=== PATIENT | female | born 1955 | race Caucasian/White ===

== ENCOUNTER → 2016-05-04 | Outpatient (CLI) | payer OTHER ==
[~2016-05-04] MED LIST: /ESCI10TA; /ONDA4TA; AMBI5TAB; LIPI20TA; MULTIVIT; PERC5TAB8; PERC7.5T8; VIT D; [UNRECOGNIZED DRUG - OTHER]
[2016-05-04 17:44] LABS: BASO % 0.4 % (0.0-1.0); EOS # 0.1 K/mm3 (0.0-0.50); EOS % 1.8 % (0.0-3.0); LARGE UNSTAINED CELL # 0.1 K/mm3 (0.0-0.4); LARGE UNSTAINED CELL % 2.7 % (0.0-4.0); LYMPH # 1.7 K/mm3 (1.5-4.5); LYMPH % 34.9 % (24.0-44.0); MEAN CORPUSCULAR HEMOGLOBIN 32.2 pg (27.0-33.0); MEAN CORPUSCULAR HGB CONC 32.5 g/dl (32.0-36.5); MEAN CORPUSCULAR VOLUME 99.3 fl (80.0-96.0); MONO # 0.3 K/mm3 (0.0-0.8); MONO % 6.1 % (0.0-5.0); NEUTROPHILS # 2.7 K/mm3 (1.8-7.7); NEUTROPHILS % 54.1 % (36.0-66.0); PLATELET COUNT, AUTOMATED 299 k/mm3 (150-450)
[2016-05-04 17:56] LABS: ALBUMIN 3.8 GM/DL (3.2-5.2); ALBUMIN/GLOBULIN RATIO 1.15 (1.00-1.93); BILIRUBIN,TOTAL 0.6 MG/DL (0.2-1.0); CALCIUM LEVEL 9.1 MG/DL (8.8-10.2); CREATININE FOR GFR 1.11 MG/DL (0.55-1.02); GLOMERULAR FILTRATION RATE 53.4 (>45); POTASSIUM SERUM 4.4 MEQ/L (3.5-5.1); TOTAL PROTEIN 7.1 GM/DL (6.4-8.2)
[2016-05-04 18:06] LABS: CARCINOEMBRYONIC ANTIGEN 1.6 NG/ML (<2.5)
== END ==
LOC: M WUC 13:56
PROVIDERS: ATTEND Emergency Medicine
DX: C18.9 Malignant neoplasm of colon, unspecified (principal); E78.2 Mixed hyperlipidemia; R73.01 Impaired fasting glucose; R19.7 Diarrhea, unspecified

== ENCOUNTER → 2016-10-10 | Outpatient (REF) | payer OTHER ==
[~2016-10-10] MED LIST changes: +AMBI10TA PO; +LEXA1TAB PO; +LOMO2.5T PO; +LOVE1INJ2 SC; +PERC5TAB12 PO; +TEMA30CA PO; +VALI5TAB PO
== END ==
LOC: M LAB REF 17:06
PROVIDERS: ATTEND Internal Medicine Gastroenterology
DX: R19.7 Diarrhea, unspecified (principal)

== ENCOUNTER → 2016-10-29 | Outpatient (CLI) | payer OTHER ==
[~2016-10-29] VITALS: Ht 157.5 cm; Wt 49.4 kg
[~2016-10-29] MED LIST changes: +LIDOCAINE 2% INJ 100 MG/5 ML SDV (FOR ANES.) As Ordered ONE; +NS 1,000 ML IV ONE; +PHENYLephrine HCL 500 MCG/5 ML (100MCG/ML) SYRINGE (J2370) As Ordered ONE; +PROPOFOL 200 MG/20 ML VIAL As Ordered ONE
--- NOTE | 2016-10-29 12:32 | ROOR ---
Patient Name: Indira Champion Procedure Date: 10/29/2016 12:07 PM Date of : 1955 Age: 60 Room: [facility] Gender: Female Note Status: Finalized Procedure: Total Colonoscopy to Cecum + Ileoscopy + Bx. Indications: Clinically significant diarrhea of unexplained origin Providers: Dariel Katz MD Referring MD: FLORENTINO AGUILAR MD Requesting Provider: Medicines: Monitored Anesthesia Care Complications: No immediate complications. Procedure: Pre-Anesthesia Assessment: - The heart rate, respiratory rate, oxygen saturations, blood pressure, adequacy of pulmonary ventilation, and response to care were monitored throughout the procedure. The Colonoscope was introduced through the anus and advanced to the terminal ileum, with identification of the appendiceal orifice and IC valve. The colonoscopy was performed without difficulty. The patient tolerated the procedure well. The quality of the bowel preparation was excellent. Findings: The perianal and digital rectal examinations were normal. Non-bleeding internal hemorrhoids were found during retroflexion. The hemorrhoids were small and Grade I (internal hemorrhoids that do not prolapse). No other significant abnormalities were identified in a careful examination of the remainder of the colon. The terminal ileum appeared normal. Biopsies for histology were taken with a cold forceps from the ascending colon, transverse colon and descending colon for evaluation of microscopic colitis. The exam was otherwise without abnormality on direct and retroflexion views. Impression: - Non-bleeding internal hemorrhoids. - The examined portion of the ileum was normal. - The examination was otherwise normal on direct and retroflexion views. - Biopsies were taken with a cold forceps from the ascending colon, transverse colon and descending colon for evaluation of microscopic colitis. - The exam was otherwise normal to the cecum. Recommendation: - Patient has a contact number available for emergencies. The signs and symptoms of potential delayed complications were discussed with the patient. Return to normal activities tomorrow. Written discharge instructions were provided to the patient. - High fiber diet. - Continue present medications. - Await pathology results. - Telephone GI clinic for pathology results in 1 week. - Repeat colonoscopy in 10 years for screening purposes. - Return to referring physician. - The findings and recommendations were discussed with the patient's family. Dariel Katz MD Dariel Katz MD 10/29/2016 12:32:21 PM This report has been signed electronically. Number of Addenda: 0 Note Initiated On: 10/29/2016 12:07 PM Estimated Blood Loss: Estimated blood loss: none.
[2016-10-29 12:45] VITALS: BP 144/81
== END | disposition home or self-care (01) ==
LOC: M OPP 11:29
PROVIDERS: ATTEND Internal Medicine Gastroenterology
DX: R19.7 Diarrhea, unspecified (principal); K64.0 First degree hemorrhoids; Z85.038 Personal history of other malignant neoplasm of large intestine; K58.9 Irritable bowel syndrome, unspecified; R12 Heartburn; F41.9 Anxiety disorder, unspecified; F32.9 Major depressive disorder, single episode, unspecified; Z78.0 Asymptomatic menopausal state; R06.83 Snoring; Z92.21 Personal history of antineoplastic chemotherapy; F12.20 Cannabis dependence, uncomplicated; F17.210 Nicotine dependence, cigarettes, uncomplicated; Z79.899 Other long term (current) drug therapy
CPT/HCPCS: 45380; 88305; J2370

== ENCOUNTER → 2016-11-30 | Outpatient (REF) | payer OTHER ==
[~2016-11-30] MED LIST changes: -LIDOCAINE 2% INJ 100 MG/5 ML SDV (FOR ANES.) As Ordered ONE; -NS 1,000 ML IV ONE; -PHENYLephrine HCL 500 MCG/5 ML (100MCG/ML) SYRINGE (J2370) As Ordered ONE; -PROPOFOL 200 MG/20 ML VIAL As Ordered ONE
== END ==
LOC: M LAB REF 14:38
PROVIDERS: ATTEND Emergency Medicine
DX: Z01.419 Encounter for gynecological examination (general) (routine) without abnormal findings (principal); Z11.51 Encounter for screening for human papillomavirus (HPV)

== ENCOUNTER → 2016-11-30 | Outpatient (REF) | payer OTHER ==
[2016-11-30 14:05] LABS: BASO % 0.2 % (0.0-1.0); EOS % 0.2 % (0.0-3.0); LARGE UNSTAINED CELL # 0.1 K/mm3 (0.0-0.4); LARGE UNSTAINED CELL % 0.8 % (0.0-4.0); LYMPH # 1.4 K/mm3 (1.5-4.5); LYMPH % 11.4 % (24.0-44.0); MEAN CORPUSCULAR HEMOGLOBIN 33.9 pg (27.0-33.0); MEAN CORPUSCULAR HGB CONC 34.3 g/dl (32.0-36.5); MEAN CORPUSCULAR VOLUME 98.6 fl (80.0-96.0); MONO # 0.5 K/mm3 (0.0-0.8); MONO % 4.5 % (0.0-5.0); NEUTROPHILS # 9.6 K/mm3 (1.8-7.7); PLATELET COUNT, AUTOMATED 359 k/mm3 (150-450); RED CELL DISTRIBUTION WIDTH 13.8 % (11.5-14.5); WHITE BLOOD COUNT 11.6 K/mm3 (4.0-10.0)
[2016-11-30 14:39] LABS: ALBUMIN 3.9 GM/DL (3.2-5.2); ALBUMIN/GLOBULIN RATIO 1.15 (1.00-1.93); BILIRUBIN,TOTAL 1.1 MG/DL (0.2-1.0); CALCIUM LEVEL 9.3 MG/DL (8.8-10.2); CREATININE FOR GFR 1.1 MG/DL (0.55-1.02); GLOMERULAR FILTRATION RATE 53.8 (>45); POTASSIUM SERUM 4.9 MEQ/L (3.5-5.1); TOTAL PROTEIN 7.3 GM/DL (6.4-8.2)
== END ==
LOC: M LABDRAW1 13:34
PROVIDERS: ATTEND Emergency Medicine
DX: R03.0 Elevated blood-pressure reading, without diagnosis of hypertension (principal); E78.2 Mixed hyperlipidemia; R73.01 Impaired fasting glucose

== ENCOUNTER 2016-12-23 14:52 | Inpatient (IN) | payer OTHER ==
[~2016-12-23] VITALS: Ht 160 cm; Wt 49.1 kg
[~2016-12-23 14:52] MED LIST changes: -LOVE1INJ2 SC; -PERC5TAB12 PO; -TEMA30CA PO
[2016-12-23] MEDS: NS 1,000 ML IV SCH ×2 (15:06→19:42)
--- NOTE | 2016-12-23 15:41 | REP ---
Clinical: Trauma to the . Findings: Age-related atrophy and microvascular ischemic changes are appreciated. The ventricles and sulci are symmetric. Monique-white differentiation is maintained. There is no evidence for acute intracranial hemorrhage, mass/mass effect, pathology or infarction. No extra-axial fluid collection. Calvarium is intact. Paranasal sinuses and mastoid air cells are clear. Impression: Age related atrophy and microvascular ischemic changes. No acute intracranial hemorrhage, infarction, or mass/mass effect. Signed by Remberto Wilson MD 12/23/2016 03:32 P
--- NOTE | 2016-12-23 15:44 | REP ---
Clinical: Trauma. Technique: Axial noncontrast images from the skull base to the thoracic inlet with coronal and sagittal re-formations. Findings: Advanced multilevel degenerative changes include osteophytosis, endplate sclerosis/heterogeneity and subchondral cystic changes as well as posterior osteophytes and hypertrophic facet changes. Alignment is maintained. Exaggerated lordosis is also consistent with degenerative changes. No acute fracture / compression injury or subluxation is identified. Spinal canal remains patent. Posterior elements and spinous processes are intact. The paravertebral soft tissues are normal. Impression: Advanced multilevel degenerative changes. No acute fracture / compression injury or subluxation appreciated. Signed by Remberto Wilson MD 12/23/2016 03:36 P
--- NOTE | 2016-12-23 15:56 | REP ---
Clinical: Trauma. Technique: Axial noncontrast images from C6 through L1 with coronal and sagittal re-formations. Findings: Alignment and kyphosis maintained. Minimal age-related changes are appreciated. No acute fracture / compression injury or subluxation. No significant, overt disc osteophyte complexes are identified. The spinal canal is patent. The posterior elements and spinous processes are intact. Incidental note is made of old healed lie left ninth rib fracture. Impression: Minimal age-related changes. Satisfactory alignment and kyphosis. No acute fracture / compression injury or subluxation. Signed by Remberto Wilson MD 12/23/2016 03:48 P
--- NOTE | 2016-12-23 15:59 | REP ---
Clinical: Trauma. Technique: Supine AP view of the chest. Comparison: 12/18/2013. Findings: Multiple acute left rib fractures are identified including minimally displaced left second and third rib fractures. Mediastinum and cardiac silhouette are normal. The lung franco are without consolidation, effusion, or obvious pneumothorax. Impression: Few acute left rib fractures are identified. No obvious consolidation, effusion, or pneumothorax. Signed by Remberto Wilson MD 12/23/2016 03:50 P
--- NOTE | 2016-12-23 16:01 | REP ---
Clinical: Trauma. Technique: AP and cross-table lateral views of the right femur Findings: In conjunction with right hip series, a comminuted medially angulated fracture through the femoral neck/intertrochanteric region is appreciated. The remainder of the femur appears intact. Impression: Comminuted intertrochanteric femoral neck fracture. Signed by Remberto Wilson MD 12/23/2016 03:52 P
[2016-12-23] MEDS: MORPHINE 4 MG/ML 1ML SYRINGE IV PRN ×2 (16:02→16:30)
--- NOTE | 2016-12-23 16:02 | REP ---
Clinical: Trauma. Technique: Frontal view of the pelvis with neutral and cross-table lateral views of the right hip. Findings: There is a right comminuted intertrochanteric femoral neck fracture. The left hip and remainder of the pelvis demonstrates osteopenia and degenerative changes without further acute fracture. Impression: Right comminuted intertrochanteric femoral neck fracture Signed by Remberto Wilson MD 12/23/2016 03:54 P
[2016-12-23] MEDS ORDERED: TEMA30CA PO (16:03)
--- NOTE | 2016-12-23 16:04 | REP ---
Clinical: Trauma. Technique: Axial noncontrast images from T12 through mid sacrum with coronal and sagittal re-formations. Findings: Alignment and lordosis maintained. No acute fracture / compression injury or subluxation. Mild degenerative changes include minimal disc space narrowing and marginal spurring. Spinal canal is patent. The posterior elements and spinous processes are intact. Surrounding soft tissues are grossly unremarkable. Impression: Mild age-related changes. No acute fracture / compression injury or subluxation. Signed by Remberto Wilson MD 12/23/2016 03:56 P
[2016-12-23] MEDS ORDERED: ONDANSETRON 4MG/2ML VIAL (J2405) As Ordered ONE (16:05)
[2016-12-23 16:07] LABS: BASO % 0.2 % (0.0-1.0); EOS # 0.3 K/mm3 (0.0-0.50); EOS % 1.8 % (0.0-3.0); LARGE UNSTAINED CELL # 0.1 K/mm3 (0.0-0.4); LARGE UNSTAINED CELL % 0.4 % (0.0-4.0); LYMPH # 0.7 K/mm3 (1.5-4.5); LYMPH % 4.5 % (24.0-44.0); MEAN CORPUSCULAR HEMOGLOBIN 33.1 pg (27.0-33.0); MEAN CORPUSCULAR HGB CONC 33.5 g/dl (32.0-36.5); MEAN CORPUSCULAR VOLUME 98.7 fl (80.0-96.0); MONO # 0.4 K/mm3 (0.0-0.8); NEUTROPHILS # 12.8 K/mm3 (1.8-7.7); NEUTROPHILS % 90.1 % (36.0-66.0); PLATELET COUNT, AUTOMATED 415 k/mm3 (150-450); RED CELL DISTRIBUTION WIDTH 13.6 % (11.5-14.5); WHITE BLOOD COUNT 14.2 K/mm3 (4.0-10.0)
[2016-12-23] MEDS ORDERED: ONDANSETRON 4MG/2ML VIAL (J2405) IV ONE (16:15)
[2016-12-23 16:33] LABS: ANION GAP 17 MEQ/L (8-16); BLOOD UREA NITROGEN 9 MG/DL (7-18); CALCIUM LEVEL 9.2 MG/DL (8.8-10.2); CARBON DIOXIDE LEVEL 20 MEQ/L (21-32); CHLORIDE LEVEL 94 MEQ/L (98-107); CREATININE FOR GFR 0.87 MG/DL (0.55-1.02); FREE T4 1.12 NG/DL (0.76-1.46); GLOMERULAR FILTRATION RATE > 60.0 (>45); GLUCOSE, FASTING 144 MG/DL (80-110); POTASSIUM SERUM 4.4 MEQ/L (3.5-5.1); SODIUM LEVEL 131 MEQ/L (136-145)
[2016-12-23] MEDS ORDERED: LOMOTIL 2.5MG/0.025MG TABLET PO PRN (17:30)
--- NOTE | 2016-12-23 17:50 | REP ---
Clinical: Trauma. Technique: Internal rotation, external rotation, and Y view of the right shoulder. Findings: Evidence for old healed humeral neck fracture. Underlying age-related degenerative changes and osteopenia noted. Decrease subacromial space to approximately 3 mm likely chronic and related to old trauma. No acute fracture or dislocation identified. Impression: Degenerative and chronic post traumatic changes. No acute fracture dislocation. Signed by Remberto Wilson MD 12/23/2016 05:42 P
--- NOTE | 2016-12-23 18:27 | ECGEPIP ---
Stationary ECG Study [facility] - ED Test Date: 2016-12-23 Pat Name: GABBY LANCE Department: Room: - Gender: F Loading Checker: JCallie : 1955 Requested By: ELINOR Desai Order Number: [id number] Reading MD: Rashmi Buchanan Measurements Intervals [place] Rate: 84 P: 74 NE: 128 QRS: 48 QRSD: 78 T: 70 QT: 397 QTc: 471 Interpretive Statements SINUS RHYTHM NSTTW ABNORMALITY NO PRIOR FOR COMPARISON Electronically Signed On 12-23-2016 18:26:47 EDT by Rashmi Buchanan
[2016-12-23] MEDS: OXAZEPAM 10 MG CAP PO PRN (18:53)
[2016-12-23] MEDS: MORPHINE 2 MG/ML 1ML SYRINGE IV PRN ×2 (19:41→20:54)
--- NOTE | 2016-12-23 20:01 | HPEPDOC ---
General Date of Admission Dec 23, 2016 at 17:22 Primary Care Physician: FLORENTINO AGUILAR MD Attending Physician: NEO PARKER MD Chief Complaint The patient is a 61-year-old female admitted with a reason for visit of Intertrochanteric Fracture O Right Hip. History of Present Illness 61-year-old female with an active past medical history significant only for anxiety/depression, and alcohol abuse presented to the ER after she slipped and fell at home yesterday evening. The patient states that she was trying to go to the bathroom, and it was dark in her home and she says suddenly tripped and fell landing on her right side. She denies any prodromal symptoms of chest pain , palpitations, shortness of breath, abdominal pain, or any nausea/vomiting. The patient presented to the ER for further evaluation. In the ER, an x-ray of the right hip revealed comminuted intertrochanteric femoral neck fracture. In addition, a chest x-ray revealed minimally displaced left second and third rib fractures. The hospitalist team was called for admission. Orthopedic surgery was consulted for surgical indication. Home Medications Scheduled Escitalopram Oxalate (Lexapro) 10 Mg Tab, 5 MG PO DAILY, (Reported) Scheduled PRN Diazepam (Valium) 5 Mg Tab, 5 MG PO DAILY PRN for ANXIETY, (Reported) Diphenoxylate/Atropine (Lomotil 2.5-0.025 mg) 1 Tab Tab, 1 TAB PO QID PRN for DIARRHEA, (Reported) Temazepam (Temazepam) 30 Mg Cap, 30 MG PO QHS PRN for SLEEP, (Reported) Allergies Coded Allergies: No Known Drug Allergy (Verified Allergy, Unknown, 10/23/16) Past Medical History Medical History as noted in HPI Family History Significant Family History: No pertinent family hx Social History * Smoker: current smoker Alcohol: other (patient states that she drinks a sixpack of beer 3-4 times a week. Denies any withdrawal symptoms) Drugs: denies Review of Symptoms Other systems 10 point review of systems negative unless otherwise specified in HPI. Physical Examination General Exam: Positive: Alert (2/2 hip fracture), Cooperative, Mild Distress ENT Exam: Positive: Atraumatic, Mucous membr. moist/pink Neck Exam: Negative: JVD Chest Exam: Positive: Clear to auscultation, Normal air movement Heart Exam: Positive: Rate Normal, Normal S1, Normal S2 Telemetry: Positive: Sinus Abdomen Exam: Positive: Soft, Negative: Tenderness Extremity Exam: Positive: Other (Right Hip with limited ROM, with shortening of the leg noted 2/2 fracture ) Psych Exam: Positive: Oriented x 3 Vital Signs Vital Signs Date Time Temp Pulse Resp B/P (MAP) Pulse Ox O2 Delivery O2 Flow Rate FiO2 12/23/16 19:41 16 98 12/23/16 19:22 90 139/65 (89) Room Air 12/23/16 18:09 98.7 Laboratory Data Labs 24H Laboratory Tests 2 12/23/16 15:57: White Blood Count 14.2H, Red Blood Count 3.89L, Hemoglobin 12.9, Hematocrit 38.5 , Mean Corpuscular Volume 98.7H, Mean Corpuscular Hemoglobin 33.1H, Mean Corpuscular Hemoglobin Concent 33.5, Red Cell Distribution Width 13.6, Platelet Count 415, Neutrophils (%) (Auto) 90.1H, Lymphocytes (%) (Auto) 4.5L, Monocytes (%) (Auto) 3.0, Eosinophils (%) (Auto) 1.8, Basophils (%) (Auto) 0.2, Neutrophils # (Auto) 12.8H, Lymphocytes # (Auto) 0.7L, Monocytes # (Auto) 0.4, Eosinophils # (Auto) 0.3, Basophils # (Auto) 0.0, Large Unclassified Cells % 0.4 , Large Unclassified Cells # 0.1, Anion Gap 17H, Glomerular Filtration Rate > 60.0, Blood Urea Nitrogen 9, Creatinine 0.87, Sodium Level 131L, Potassium Level 4.4, Chloride Level 94L, Carbon Dioxide Level 20L, Calcium Level 9.2, Total Creatine Kinase 93, Creatine Kinase MB 1.7, Creatine Kinase MB Relative Index 1.82, Troponin I < 0.02, Thyroid Stimulating Hormone (TSH) 1.050, Free Thyroxine 1.12, Ethyl Alcohol Level < 0.003 CBC/BMP Laboratory Tests 12/23/16 15:57 Red Blood Count 3.89 L, Mean Corpuscular Volume 98.7 H, Mean Corpuscular Hemoglobin 33.1 H, Mean Corpuscular Hemoglobin Concent 33.5, Red Cell Distribution Width 13.6, Neutrophils (%) (Auto) 90.1 H, Lymphocytes (%) (Auto) 4.5 L, Monocytes (%) (Auto) 3.0, Eosinophils (%) (Auto) 1.8, Basophils (%) (Auto ) 0.2, Neutrophils # (Auto) 12.8 H, Lymphocytes # (Auto) 0.7 L, Monocytes # ( Auto) 0.4, Eosinophils # (Auto) 0.3, Basophils # (Auto) 0.0, Calcium Level 9.2, Total Creatine Kinase 93 Plan / VTE VTE Prophylaxis Ordered?: Yes Plan / Urinary Catheter Reason for insertion/continuin: Perioperative Plan Plan Right Hip Comminuted Intertrochanteric femoral neck fracture X-ray of the right hip noted Orthopedic surgery consulted The patient is able to tolerate greater than 4 METS of activity at baseline, and is without any history of CAD, CVA, CKD, COPD, etc and is w/o any c/o chest pain, palpitations, SOB, or other cardiac symptoms The patient has been medically optimized at this time for surgery. Minimally displaced left second and third rib fractures No effusion noted on CXR, patient breathing comfortably on RA Will cont with supportive tx Alcohol Abuse Patient states that she drinks a 6-pack of beer, 3-4 times a week She denies any symptoms of alcohol withdrawal in the past Alcohol level neg in ER-->Last drink was greater than [address] will [address] the patient on prn Serax Withdrawal precautions Depression/Anxiety, stable Cont Lexapro Hx of Sigmoid Colon Ca s/p Left Hemicolectomy with colocolic anastomosis in 2009 Recent surveillance EGD from 10/[address] Katz noted DVT Prophylaxis SC/TEDs for now--post-operative DVT prophylaxis as per Ortho team The patient will be admitted under the service of Dr. Parker, who will begin to follow the patient on 12/24/16 at 7 AM. LISA ROLLINS MD Dec 23, 2016 20:01
--- NOTE | 2016-12-23 20:19 | CR ---
DATE OF CONSULTATION: 12/23/2016 REASON FOR CONSULTATION: Right proximal femur fracture. CHIEF COMPLAINT: Right hip pain. HISTORY OF PRESENT ILLNESS: Indira Champion is a 61-year-old alcoholic female who sustained a fall from standing height at approximately 3 o'clock this morning, resulting in immediate right hip pain. The patient was found down by her a few hours later where she was brought into the emergency department for evaluation. The patient states that she felt slightly dizzy prior to her fall. She does have full recollection of the event. She denies any antecedent chest pain, shortness of breath, headaches, abdominal pain or other symptoms prior to her fall. The patient has not had any other recent falls and denies any current headaches. She does report some mild shoulder and some mild back pain; otherwise, no other complaints. PAST MEDICAL HISTORY: Significant for colon cancer, status post hemicolectomy four years ago. She also has anxiety disorder, depression, gastroesophageal reflux disease (GERD), irritable bowel syndrome. MEDICATIONS: Zoloft, Valium, Lexapro. ALLERGIES: No known drug allergies. PAST SURGICAL HISTORY: Hemicolectomy four years ago per past medical history. She also had left ankle open reduction, internal fixation (ORIF), right shoulder surgery, multiple breast biopsies. FAMILY HISTORY: Noncontributory. SOCIAL HISTORY: The patient is retired. 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 She is a [id number]-day smoker. She drinks most days of the week approximately six beers when she does drink. She smokes marijuana occasionally. No other illicit drugs. REVIEW OF SYSTEMS: 14-point review of systems was remarkable for past history of colon cancer as noted above. Otherwise, unremarkable. PHYSICAL EXAMINATION: VITAL SIGNS: Temperature 99.3, heart rate 107, blood pressure 190/93, respiratory rate 22, oxygen saturation 100% on room air. GENERAL: This female appears older than stated age in no acute distress. NEUROLOGIC: She is awake, alert, and oriented to person, place and time. She has intact sensory and motor function in her right lower extremity tibial, sural saphenous, superficial peroneal, and deep peroneal nerve distributions. HEENT: Poor dentition, otherwise atraumatic. CARDIOVASCULAR: She has 2+ dorsalis pedis and posterior tibial (DP/PT) pulses and brisk capillary refill to all digits of the right lower extremity. MUSCULOSKELETAL: Focused physical exam of the right hip demonstrates significant tenderness throughout the lateral aspect of the hip. There are no open wounds or abrasions about the right lower extremity. The patient is able to actively flex and extend all toes and her ankle. She has no tenderness about the knee. Tertiary exam of the patient demonstrates mild tenderness about the anterior aspect of her shoulder. No pain with passive range of motion of the shoulder. The patient able to actively flex, extend, abduct, adduct, internally and externally rotate the shoulder actively. RADIOGRAPHS: Plain radiographs of the right pelvis and femur demonstrate evidence of a displaced intertrochanteric femur fracture of the right hip. Right shoulder radiographs pending. ASSESSMENT: This is a 61-year-old female alcoholic with a history of colon cancer with a right proximal femur fracture after a mechanical fall from standing height. PLAN: I discussed with the patient the risks, benefits, indications and alternatives, operative versus nonoperative treatment for her right hip fracture. Given her age and nature of the injury, I counseled the patient and recommended closed versus open reduction and internal fixation of the right proximal femur. Given her colon cancer history, she will be indicated for a long cephalomedullary nail. I will send off reamings to pathology to evaluate for potential metastatic lesion. The patient expressed understanding with this. I also counseled the patient that I will be her operating surgeon but her followup care will be conducted by the [facility]. The patient expressed understanding with this arrangement and provided informed consent for right hip open versus closed reduction and internal fixation, and informed consent was obtained. I discussed the patient with the hospitalist and no further cardiac workup is indicated, MTDD
[2016-12-23] MEDS: ONDANSETRON 4MG/2ML VIAL (J2405) IV PRN (21:01)
[2016-12-23] MEDS ORDERED: MORPHINE 4 MG/ML 1ML SYRINGE IV PRN (22:30)
[2016-12-23 23:56] VITALS: BP 162/68
[2016-12-24] MEDS: NS 1,000 ML IV SCH (00:30)
[2016-12-24] MEDS: MORPHINE 2 MG/ML 1ML SYRINGE IV PRN ×8 (00:50→23:47)
[2016-12-24] MEDS: OXAZEPAM 10 MG CAP PO PRN ×2 (01:20→12:53)
[2016-12-24 05:20] VITALS: BP 118/58
[2016-12-24 07:24] LABS: ALBUMIN 2.9 GM/DL (3.2-5.2); ALBUMIN/GLOBULIN RATIO 0.94 (1.00-1.93); ALKALINE PHOSPHATASE 108 U/L (45-117); ALT/SGPT 15 U/L (12-78); ANION GAP 10 MEQ/L (8-16); AST/SGOT 16 U/L (15-37); BILIRUBIN,TOTAL 0.6 MG/DL (0.2-1.0); BLOOD UREA NITROGEN 9 MG/DL (7-18); CALCIUM LEVEL 7.7 MG/DL (8.8-10.2); CARBON DIOXIDE LEVEL 21 MEQ/L (21-32); CHLORIDE LEVEL 107 MEQ/L (98-107); CREATININE FOR GFR 0.69 MG/DL (0.55-1.02); GLOMERULAR FILTRATION RATE > 60.0 (>45); GLUCOSE, FASTING 95 MG/DL (80-110); MAGNESIUM LEVEL 1.7 MG/DL (1.8-2.4); POTASSIUM SERUM 3.9 MEQ/L (3.5-5.1); SODIUM LEVEL 138 MEQ/L (136-145)
[2016-12-24 07:25] LABS: MEAN CORPUSCULAR HEMOGLOBIN 33.3 pg (27.0-33.0); MEAN CORPUSCULAR HGB CONC 33.2 g/dl (32.0-36.5); MEAN CORPUSCULAR VOLUME 100.5 fl (80.0-96.0); RED CELL DISTRIBUTION WIDTH 13.6 % (11.5-14.5); WHITE BLOOD COUNT 7.8 K/mm3 (4.0-10.0)
[2016-12-24] MEDS ORDERED: ENOXAPARIN 40 MG/0.4 ML SYRINGE (J1650) SC ONE (09:15)
[2016-12-24] MEDS: ESCITALOPRAM OXALATE 5MG TABLET (LEXAPRO) PO SCH (10:34)
[2016-12-24] MEDS: MAG SULF 1GM/100ML (MAG RUN) 1 GM in APPROPRIATE DILUENT 1 EA IV SCH ×2 (10:34→12:53)
--- NOTE | 2016-12-24 10:35 | IPNPDOC ---
Subjective Date Seen The patient was seen on 12/24/16. Subjective Chief Complaint/HPI The patient is a 61-year-old female admitted with a reason for visit of Intertrochanteric Fracture O Right Hip. Events since last encounter complains of right hip pain . Also says the powell is really bothering her. planned for surgery today. Objective Physical Examination General Exam: Positive: Alert (2/2 hip fracture), Cooperative, Mild Distress ENT Exam: Positive: Atraumatic, Mucous membr. moist/pink Neck Exam: Negative: JVD Chest Exam: Positive: Clear to auscultation, Normal air movement Heart Exam: Positive: Rate Normal, Normal S1, Normal S2 Telemetry: Positive: Sinus Abdomen Exam: Positive: Normal bowel sounds, Soft, Negative: Tenderness Extremity Exam: Positive: Other (Right Hip with limited ROM, with shortening of the leg noted 2/2 fracture ) Skin Exam: Positive: Nl turgor and temperature, Negative: Rash, Breakdown Psych Exam: Positive: Oriented x 3 Assessment /Plan Problems (1) Intertrochanteric fracture of right hip Status: Acute Problem Text: seen by ortho dr Real planned for surgery today. pain control with morphine prn. (2) Multiple rib fractures Status: Acute Problem Text: does not complain any pain (3) Cervical spine degeneration Status: Chronic (4) Alcohol abuse Status: Chronic Problem Text: will monitor for withdrawal ativan 2 mg iv prn for withdrawal symptoms. thiamine and folate. banana bag serax prn (5) Hyponatremia Status: Acute Problem Text: possibly due to alcohol abuse very mild will continue to monitor. Plan/VTE VTE Prophylaxis Ordered?: Yes Plan/Urinary Catheter Reason for insertion/continuin: Perioperative VS, I&O, 24H, Fishbone Vital Signs/I&O Vital Signs Date Time Temp Pulse Resp B/P (MAP) Pulse Ox O2 Delivery O2 Flow Rate FiO2 12/24/16 06:45 17 Room Air 12/24/16 05:20 98.8 84 118/58 (78) 93 I&O- Last 24 Hours up to 6 AM 12/24/16 06:00 Intake Total 825 ml Output Total 150 ml Balance 675 ml Laboratory Data 24H LABS Laboratory Tests 2 12/23/16 15:57: White Blood Count 14.2H, Red Blood Count 3.89L, Hemoglobin 12.9, Hematocrit 38.5 , Mean Corpuscular Volume 98.7H, Mean Corpuscular Hemoglobin 33.1H, Mean Corpuscular Hemoglobin Concent 33.5, Red Cell Distribution Width 13.6, Platelet Count 415, Neutrophils (%) (Auto) 90.1H, Lymphocytes (%) (Auto) 4.5L, Monocytes (%) (Auto) 3.0, Eosinophils (%) (Auto) 1.8, Basophils (%) (Auto) 0.2, Neutrophils # (Auto) 12.8H, Lymphocytes # (Auto) 0.7L, Monocytes # (Auto) 0.4, Eosinophils # (Auto) 0.3, Basophils # (Auto) 0.0, Large Unclassified Cells % 0.4 , Large Unclassified Cells # 0.1, Anion Gap 17H, Glomerular Filtration Rate > 60.0, Blood Urea Nitrogen 9, Creatinine 0.87, Sodium Level 131L, Potassium Level 4.4, Chloride Level 94L, Carbon Dioxide Level 20L, Calcium Level 9.2, Total Creatine Kinase 93, Creatine Kinase MB 1.7, Creatine Kinase MB Relative Index 1.82, Troponin I < 0.02, Thyroid Stimulating Hormone (TSH) 1.050, Free Thyroxine 1.12, Ethyl Alcohol Level < 0.003 12/24/16 06:46: Anion Gap 10, Glomerular Filtration Rate > 60.0, Blood Urea Nitrogen 9, Creatinine 0.69, Sodium Level 138#, Potassium Level 3.9, Chloride Level 107, Carbon Dioxide Level 21, Calcium Level 7.7#L, Aspartate Amino Transf (AST/SGOT) 16, Alanine Aminotransferase (ALT/SGPT) 15, Alkaline Phosphatase 108, Total Bilirubin 0.6, Total Protein 6.0L, Albumin 2.9L, Magnesium Level 1.7L, Albumin/ Globulin Ratio 0.94L CBC/BMP Laboratory Tests 12/23/16 15:57 Red Blood Count 3.89 L, Mean Corpuscular Volume 98.7 H, Mean Corpuscular Hemoglobin 33.1 H, Mean Corpuscular Hemoglobin Concent 33.5, Red Cell Distribution Width 13.6, Neutrophils (%) (Auto) 90.1 H, Lymphocytes (%) (Auto) 4.5 L, Monocytes (%) (Auto) 3.0, Eosinophils (%) (Auto) 1.8, Basophils (%) (Auto ) 0.2, Neutrophils # (Auto) 12.8 H, Lymphocytes # (Auto) 0.7 L, Monocytes # ( Auto) 0.4, Eosinophils # (Auto) 0.3, Basophils # (Auto) 0.0, Calcium Level 9.2, Total Creatine Kinase 93 12/24/16 06:46 Red Blood Count 2.93 L, Mean Corpuscular Volume 100.5 H, Mean Corpuscular Hemoglobin 33.3 H, Mean Corpuscular Hemoglobin Concent 33.2, Red Cell Distribution Width 13.6, Calcium Level 7.7 #L, Aspartate Amino Transf (AST/SGOT ) 16, Alanine Aminotransferase (ALT/SGPT) 15, Alkaline Phosphatase 108, Total Bilirubin 0.6, Total Protein 6.0 L, Albumin 2.9 L NEO GOLD MD Dec 24, 2016 10:35
[2016-12-24] MEDS ORDERED: MULTIVITAMIN -ADULT INJECTION 10 ML, THIAMINE INJection 100 MG, FOLIC ACID 1 MG in NS 1... IV ONE (12:00)
[2016-12-24] MEDS: FOLIC ACID 1 MG TAB PO SCH (12:53)
[2016-12-24] MEDS: THIAMINE 100 MG TAB PO SCH (12:53)
[2016-12-24 14:00] VITALS: BP 109/60
[2016-12-24 20:00] VITALS: BP 154/78
[2016-12-24] MEDS ORDERED: PROPOFOL 200 MG/20 ML VIAL As Ordered ONE ×2 (20:42→21:59)
[2016-12-24] MEDS ORDERED: KETAMINE HCL 200 MG/20 ML VIAL As Ordered ONE (20:42)
[2016-12-24] MEDS ORDERED: MIDAZOLAM INJ 2 MG/2 ML VIAL (J2250) As Ordered ONE ×2 (20:43→21:18)
[2016-12-24] MEDS ORDERED: fentaNYL 100 MCG/2 ML INJECTION (J3010) As Ordered ONE ×2 (20:43→23:16)
[2016-12-24] MEDS ORDERED: ceFAZolin 1GM INJ (J0690) As Ordered ONE (20:55)
[2016-12-24] MEDS ORDERED: PHENYLephrine HCL 500 MCG/5 ML (100MCG/ML) SYRINGE (J2370) As Ordered ONE (22:06)
[2016-12-24] MEDS ORDERED: ePHEDrine SULFATE 25 MG/5 ML(5MG/ML) SYRINGE As Ordered ONE (22:06)
[2016-12-24] MEDS ORDERED: ONDANSETRON 4MG/2ML VIAL (J2405) IV PRN (23:00)
[2016-12-24] MEDS ORDERED: LR 1,000 ML IV SCH (23:00)
[2016-12-24] MEDS ORDERED: fentaNYL 100 MCG/2 ML INJECTION (J3010) IV PRN (23:00)
[2016-12-24] MEDS ORDERED: MORPHINE 4 MG/ML 1ML SYRINGE As Ordered ONE ×2 (23:16→23:31)
[2016-12-24] MEDS: LR 1,000 ML IV SCH (23:45)
[2016-12-24] MEDS ORDERED: ACETAMINOPHEN TAB 650MG DOSE (2X325MG) PO PRN (23:45)
[2016-12-24] MEDS ORDERED: FLEET ENEMA PR PRN (23:45)
[2016-12-25] VITALS (9 sets, daily range): BP systolic 122–150; BP diastolic 58–78
[2016-12-25] MEDS: MORPHINE 2 MG/ML 1ML SYRINGE IV PRN ×2 (00:57→03:44)
[2016-12-25] MEDS: LR 1,000 ML IV SCH (01:01)
[2016-12-25] MEDS: LORazepam 2 MG/ML VIAL (J2060) IV PRN (03:56)
[2016-12-25] MEDS: ceFAZolin SOD 1 GM in D5W MINI-BAG PLUS 50 ML IV SCH ×2 (05:23→13:38)
[2016-12-25] MEDS: PERCOCET 5MG/325MG TAB PO PRN ×4 (05:23→22:13)
[2016-12-25 06:36] LABS: MEAN CORPUSCULAR HEMOGLOBIN 33.4 pg (27.0-33.0); MEAN CORPUSCULAR VOLUME 101.3 fl (80.0-96.0); RED CELL DISTRIBUTION WIDTH 13.3 % (11.5-14.5); WHITE BLOOD COUNT 6.7 K/mm3 (4.0-10.0)
[2016-12-25 06:39] LABS: ALBUMIN 2.2 GM/DL (3.2-5.2); ALBUMIN/GLOBULIN RATIO 0.85 (1.00-1.93); ALKALINE PHOSPHATASE 87 U/L (45-117); ALT/SGPT 13 U/L (12-78); ANION GAP 9 MEQ/L (8-16); AST/SGOT 19 U/L (15-37); BILIRUBIN,TOTAL 0.5 MG/DL (0.2-1.0); BLOOD UREA NITROGEN 5 MG/DL (7-18); CALCIUM LEVEL 7.2 MG/DL (8.8-10.2); CARBON DIOXIDE LEVEL 24 MEQ/L (21-32); CHLORIDE LEVEL 103 MEQ/L (98-107); CREATININE FOR GFR 0.49 MG/DL (0.55-1.02); GLOMERULAR FILTRATION RATE > 60.0 (>45); GLUCOSE, FASTING 95 MG/DL (80-110); POTASSIUM SERUM 3.4 MEQ/L (3.5-5.1); SODIUM LEVEL 136 MEQ/L (136-145); TOTAL PROTEIN 4.8 GM/DL (6.4-8.2)
[2016-12-25] MEDS ORDERED: MOM 30ML SUSPENSION UDC PO PRN (07:15)
[2016-12-25] MEDS ORDERED: POTASSIUM CHLORIDE 10 MEQ SR TABLET PO ONE (07:45)
--- NOTE | 2016-12-25 08:02 | REP ---
Right hip intraoperative fluoroscopic views during internal fixation: A total of 26 intraoperative films are performed during gamma nail internal fixation of an intertrochanteric fracture. Final films demonstrate the hardware and fracture are in satisfactory positions and alignment. Fluoroscopic exposure time is 2 minutes and 14 seconds. Intraoperative fluoroscopic images are performed with last image hold technology. These images require no additional radiation. Signed by Av Ng MD 12/25/2016 07:53 A
--- NOTE | 2016-12-25 08:09 | RO ---
DATE OF PROCEDURE: 12/24/2016 PREPROCEDURE DIAGNOSIS: Displaced right intertrochanteric femur fracture. POSTPROCEDURE DIAGNOSIS: Displaced right intertrochanteric femur fracture. PROCEDURE: Open reduction, internal fixation (ORIF) of right femur with a cephalomedullary nail. SURGEON: Dr. Richard Mera THERAPEUTIC STRATEGY LEAD: None ANESTHESIA: Spinal. IMPLANTS: Synthes long TFN 360 x 11, 130 degree neck angle. 90 mm helical blade, distal screws time two. Closure lalito. INDICATIONS: Ms. Champion is a 61-year-old female who suffered a mechanical fall on 12/23/2016. She landed on her right hip and had immediate pain and was unable to bear weight. X-rays at the hospital revealed a displaced proximal femur fracture. She was admitted to the hospitalist service. She was medically optimized. The risks and benefits of open reduction, internal fixation (ORIF) with a cephalomedullary nail were discussed with her. She understood the risks included but were not limited to bleeding, infection, damage to adjacent neurovascular structure, deep vein thrombosis (DVT), pulmonary embolism, malunion, non-union, periimplant femur fracture, stiffness, weakness, hardware irritation or failure, leg length discrepancy, failure to return to preinjury activity level, risk of anesthesia and need for additional surgery. Written informed consent obtained. DESCRIPTION OF PROCEDURE: The patient was identified in the preoperative holding area and the right leg signed by me. She was brought to the operating room, where spinal anesthesia was induced. She was then placed supine on a well padded fracture table. The right leg was placed into the traction boot, and the left leg was very well padded and secured to the central beam with the legs in a scissored fashion. She received 2 grams of IV cephazolin for antibiotic prophylaxis within 1 hour of incision. A preliminary time-out performed per hospital protocol. A preliminary closed reduction was then performed by applying traction, adduction and internal rotation of the femur. Satisfactory preliminary reduction confirmed on AP, lateral and oblique views using large C-arm. The right leg was then prepped and draped in the normal sterile fashion with the shower curtain. Prior to incision, a time-out was performed, in which myself and all operating room (OR) staff confirmed the patient's name, medical record number, date of , and the correct side, site, and procedure. A 3 cm longitudinal incision was made with a #15 blade just proximal to the tip of the greater trochanter. Hemostasis with electrocautery. Blunt dissection down to the deep fascial. Tensor fascia was opened with curved Williamson scissors. A threaded guidewire was then placed at the tip of the greater trochanter and advanced to the level of the lesser trochanter with appropriate positioned confirmed on AP and lateral views of fluoroscopy. Of note, there was significant comminution of the greater trochanter. There also appeared to be a large cyst occupying about one-third of the inferior femoral head. The opening reamer was then placed over the guidewire to create an opening of the proximal femur. Given that this patient has a history of colon cancer, these reamings were then sent to pathology. A ball-tip guidewire was then placed through that opening down to the patella. Position confirmed on AP and lateral views using large C-arm. A 360 mm nail was felt to be most appropriate. I also felt that a [address] neck [address] would [address] the helical blade just proximal to the cyst with better fixation. A Synthes long TFN 360 x 11 mm nail was then loaded on the it audit manager and passed down the femur by hand. I should mention, I did ream over the guidewire up to a 12.5. Some of those reamings were sent for pathology as well. With the nail at the appropriate depth, the trocars were then used for placement of the helical blade. Guidewire was removed and then the threaded guidewire was placed through the drill sleeves, placing the guidewire center centered on the AP and lateral. The guidewire was just proximal to that cyst on the AP. It measured 90 mm in length. The triple reamer was used over the guidewire and then a 90 mm helical blade was malleted over the guidewire to the appropriate depth. The nail was then locked proximally and the tensioner used to fine tune the reduction using the brett and tensioner. This did close down the fracture gap at the calcar. Instrumentation was then removed. Final views of AP, lateral and oblique at the hip were taken showing appropriate position of the helical blade. Next, attention was turned to distal locking screws. Using perfect catawba technique, I placed two interlocking screws, one through the most distal static hole and the other through the dynamic slot. There was excellent fixation. Final views in AP and lateral of the knee and hip were taken with large C-arm. All incisions were then extensively irrigated with normal saline. Tensor fascia was closed with figure of eight, #1 Vicryl sutures, followed by #2-0 Vicryl and lalito. Distal incisions were closed with #2-0 Vicryl and lalito after irrigation. Sterile bandage applied. All counts correct times two. COMPLICATIONS: None. DISPOSITION: The patient was transferred to the postanesthesia care unit (PACU) in stable condition. She will remain under the care of the hospitalist. Pierre for deep vein thrombosis (DVT) prophylaxis. 24 hours of antibiotic prophylaxis. We will followup on pathology reamings and nutrition consultation given that the patient is severely malnourished with an albumin less than 3.
[2016-12-25] MEDS: ENOXAPARIN 30 MG/0.3 ML SYR (J1650) SC SCH (09:19)
[2016-12-25] MEDS: FOLIC ACID 1 MG TAB PO SCH (09:19)
[2016-12-25] MEDS: THIAMINE 100 MG TAB PO SCH (09:19)
[2016-12-25] MEDS: MIRALAX *UNIT DOSE* 17GM PACKET PO SCH (09:19)
[2016-12-25] MEDS: ESCITALOPRAM OXALATE 5MG TABLET (LEXAPRO) PO SCH (09:19)
[2016-12-25] MEDS: SENOKOT S TAB PO SCH ×2 (09:19→20:42)
[2016-12-25] MEDS: OXAZEPAM 10 MG CAP PO PRN (10:59)
[2016-12-25] MEDS ORDERED: NS 1,000 ML IV SCH (12:52)
--- NOTE | 2016-12-25 12:53 | REP ---
Clinical: Status post open reduction and fixation for femoral neck fracture . Technique: AP and cross-table lateral views. Findings: The patient is status post open reduction and fixation with normal positioning and appearance to the femoral hardware and positioning. Overlying postsurgical changes appreciated. Impression: Satisfactory open reduction and fixation for femoral neck fracture. Signed by Remberto Wilson MD 12/25/2016 12:45 P
[2016-12-25] MEDS ORDERED: diphenhydrAMINE 25 MG CAP PO ONE (13:00)
[2016-12-25] MEDS ORDERED: ACETAMINOPHEN TAB 650MG DOSE (2X325MG) PO ONE (13:00)
--- NOTE | 2016-12-25 21:08 | IPNPDOC ---
Date Seen The patient was seen on 12/25/16. Progress Note Hospitalist Progress Note Subjective: Patient has no complaints Objective: Physical Exam: Vitals: Vital Sign - Last 24 Hours 12/24/16 12/24/16 12/24/16 12/24/16 22:55 23:12 23:20 23:27 Temp 99.1 98.5 Pulse 96 88 78 Resp 18 16 16 16 B/P (MAP) 117/63 (81) 110/53 (72) 112/59 (76) Pulse Ox 96 95 95 O2 Delivery Room Air Room Air Room Air 12/24/16 12/24/16 12/24/16 12/24/16 23:32 23:40 23:45 23:47 Resp 16 16 O2 Delivery Room Air 12/24/16 12/25/16 12/25/16 12/25/16 23:48 00:00 00:20 00:50 Temp 98.2 98.5 98.4 Pulse 73 89 93 86 Resp 16 16 11 10 B/P (MAP) 117/55 (75) 108/59 (75) 141/75 (97) 136/74 (94) Pulse Ox 99 99 100 100 O2 Delivery Nasal Cannula Nasal Cannula Nasal Cannula Nasal Cannula O2 Flow Rate 2 2 2.0 2.0 12/25/16 12/25/16 12/25/16 12/25/16 00:57 01:50 02:50 03:44 Temp 98.3 98.1 Pulse 89 96 Resp 16 18 18 B/P (MAP) 135/73 (93) 150/78 (102) Pulse Ox 98 99 O2 Delivery Nasal Cannula Nasal Cannula Nasal Cannula Nasal Cannula O2 Flow Rate 2.0 2.0 2.0 2.0 12/25/16 12/25/16 12/25/16 12/25/16 03:50 03:54 04:50 05:23 Temp 98.4 98.0 Pulse 87 91 Resp 16 B/P (MAP) 140/71 (94) 133/73 (93) Pulse Ox 98 100 O2 Delivery Nasal Cannula Nasal Cannula Nasal Cannula Nasal Cannula O2 Flow Rate 2.0 2.0 2.0 2.0 12/25/16 12/25/16 12/25/16 12/25/16 05:53 08:00 10:00 11:00 Temp 99.4 Pulse 89 Resp 16 12 B/P (MAP) 124/58 (80) Pulse Ox 96 O2 Delivery Nasal Cannula Room Air Room Air Room Air O2 Flow Rate 2.0 12/25/16 12/25/16 12/25/16 14:00 15:21 15:51 Temp 99.1 Pulse 92 Resp 17 14 12 B/P (MAP) 122/61 (81) O2 Delivery Room Air General: Awake, alert, no acute distress HEENT: Normocephalic, atraumatic, extraocular movements intact CV: Regular rate and rhythm Lungs: Clear to auscultation bilaterally Abd: Soft, nontender, nondistended Extremities: No edema Neuro: Alert and oriented 3, normal speech Psych: Normal mood and affect Labs and Imaging: Laboratory Tests 12/25/16 05:58 Red Blood Count 2.37 L, Mean Corpuscular Volume 101.3 H, Mean Corpuscular Hemoglobin 33.4 H, Mean Corpuscular Hemoglobin Concent 33.0, Red Cell Distribution Width 13.3, Calcium Level 7.2 L, Aspartate Amino Transf (AST/SGOT) 19, Alanine Aminotransferase (ALT/SGPT) 13, Alkaline Phosphatase 87, Total Bilirubin 0.5, Total Protein 4.8 L, Albumin 2.2 #L 12/25/16 08:09 Assessment and Plan: 61-year-old female with anxiety and depression, alcohol abuse, who slipped and fell in a dark bathroom and has been found to have a right hip fracture and minimally displaced left second and third rib fractures. 1. Right hip fracture: Management as per orthopedics. Status post operative repair. 2. Rib fractures: Management as per orthopedics. Pain is currently controlled. 3. Leukocytosis: WBC upon admission was 14.2, but this has now returned to normal. The patient has been afebrile. I suspect this was reactive in nature. Continue to monitor 4. Anemia: The patient's hemoglobin upon admission was 12.9. The day after admission, it had dropped to 9.8. The patient denies any bleeding. Upon review of the CBC, appears that she was very hemoconcentrated, as all of her lines have dropped. I suspect that hemoconcentration with rehydration is largely to account for this drop in hemoglobin. However, today, we see that her hemoglobin is just below 8. Although there is still no evidence of bleeding, she did recently have surgery, so we'll transfuse her 1 unit of PRBCs. Continue to monitor hemoglobin. 5. Anxiety and depression: Continue home Lexapro. 6. Alcohol abuse: Continue as needed Serax and Ativan. Continue folic acid, thiamine, multivitamin. DVT prophylaxis: As per orthopedics, currently on Lovenox Dispo: pending stabilization of hemoglobin, as well as clearance by orthopedics VS, I&O, 24H, Fishbone Vital Signs/I&O Vital Signs Date Time Temp Pulse Resp B/P (MAP) Pulse Ox O2 Delivery O2 Flow Rate FiO2 12/25/16 15:51 12 12/25/16 14:00 99.1 92 122/61 (81) Room Air 12/25/16 10:00 96 12/25/16 05:53 2.0 I&O- Last 24 Hours up to 6 AM 12/25/16 06:00 Intake Total 3400 ml Output Total 1525 ml Balance 1875 ml Laboratory Data 24H LABS Laboratory Tests 2 12/25/16 05:58: Anion Gap 9, Glomerular Filtration Rate > 60.0, Blood Urea Nitrogen 5L, Creatinine 0.49L, Sodium Level 136, Potassium Level 3.4L, Chloride Level 103, Carbon Dioxide Level 24, Calcium Level 7.2L, Aspartate Amino Transf (AST/SGOT) 19, Alanine Aminotransferase (ALT/SGPT) 13, Alkaline Phosphatase 87, Total Bilirubin 0.5, Total Protein 4.8L, Albumin 2.2#L, Albumin/Globulin Ratio 0.85L CBC/BMP Laboratory Tests 12/25/16 05:58 Red Blood Count 2.37 L, Mean Corpuscular Volume 101.3 H, Mean Corpuscular Hemoglobin 33.4 H, Mean Corpuscular Hemoglobin Concent 33.0, Red Cell Distribution Width 13.3, Calcium Level 7.2 L, Aspartate Amino Transf (AST/SGOT) 19, Alanine Aminotransferase (ALT/SGPT) 13, Alkaline Phosphatase 87, Total Bilirubin 0.5, Total Protein 4.8 L, Albumin 2.2 #L 12/25/16 08:09 MOJGAN MCKAY Dec 25, 2016 21:08
[2016-12-26] MEDS: MORPHINE 2 MG/ML 1ML SYRINGE IV PRN ×3 (01:07→19:47)
[2016-12-26] MEDS: PERCOCET 5MG/325MG TAB PO PRN ×4 (04:08→21:30)
[2016-12-26 06:00] VITALS: BP 160/77
[2016-12-26 07:06] LABS: MEAN CORPUSCULAR HGB CONC 33.6 g/dl (32.0-36.5); MEAN CORPUSCULAR VOLUME 98.4 fl (80.0-96.0); RED CELL DISTRIBUTION WIDTH 14.2 % (11.5-14.5); WHITE BLOOD COUNT 9.1 K/mm3 (4.0-10.0)
[2016-12-26 07:42] LABS: ALBUMIN 2.3 GM/DL (3.2-5.2); ALBUMIN/GLOBULIN RATIO 0.72 (1.00-1.93); ALKALINE PHOSPHATASE 93 U/L (45-117); ALT/SGPT 14 U/L (12-78); ANION GAP 7 MEQ/L (8-16); AST/SGOT 15 U/L (15-37); BILIRUBIN,TOTAL 0.5 MG/DL (0.2-1.0); BLOOD UREA NITROGEN 5 MG/DL (7-18); CALCIUM LEVEL 8.1 MG/DL (8.8-10.2); CARBON DIOXIDE LEVEL 28 MEQ/L (21-32); CHLORIDE LEVEL 102 MEQ/L (98-107); CREATININE FOR GFR 0.58 MG/DL (0.55-1.02); GLOMERULAR FILTRATION RATE > 60.0 (>45); GLUCOSE, FASTING 103 MG/DL (80-110); MAGNESIUM LEVEL 1.7 MG/DL (1.8-2.4); POTASSIUM SERUM 3.7 MEQ/L (3.5-5.1); SODIUM LEVEL 137 MEQ/L (136-145); TOTAL PROTEIN 5.5 GM/DL (6.4-8.2)
[2016-12-26] MEDS: ESCITALOPRAM OXALATE 5MG TABLET (LEXAPRO) PO SCH (08:57)
[2016-12-26] MEDS: MIRALAX *UNIT DOSE* 17GM PACKET PO SCH (08:57)
[2016-12-26] MEDS: FOLIC ACID 1 MG TAB PO SCH (08:57)
[2016-12-26] MEDS: SENOKOT S TAB PO SCH (08:57)
[2016-12-26] MEDS: MULTIVITAMINS/MINERALS THERAP 1 TAB PO SCH (08:57)
[2016-12-26] MEDS: ENOXAPARIN 30 MG/0.3 ML SYR (J1650) SC SCH (08:57)
[2016-12-26] MEDS: THIAMINE 100 MG TAB PO SCH (08:57)
[2016-12-26] MEDS: MAG SULF 1GM/100ML (MAG RUN) 1 GM in APPROPRIATE DILUENT 1 EA IV SCH ×2 (10:45→12:04)
[2016-12-26 14:00] VITALS: BP 132/77
--- NOTE | 2016-12-26 16:47 | IPNPDOC ---
Date Seen The patient was seen on 12/26/16. Progress Note Hospitalist Progress Note Subjective: Patient has a lot of pain in her leg when she moves but denies any chest/rib pain Objective: Physical Exam: Vitals: Vital Sign - Last 24 Hours 12/25/16 12/25/16 12/25/16 12/26/16 21:00 22:00 22:13 01:07 Temp 98.9 Pulse 96 Resp 14 18 16 B/P (MAP) 126/61 (82) Pulse Ox 97 O2 Delivery Room Air Room Air 12/26/16 12/26/16 12/26/16 12/26/16 04:08 06:00 07:45 07:55 Temp 97.8 Pulse 93 Resp 18 14 14 12 B/P (MAP) 160/77 (104) Pulse Ox 96 O2 Delivery Room Air 12/26/16 12/26/16 12/26/16 12/26/16 07:57 11:37 14:00 15:52 Temp 97.6 Pulse 92 Resp 14 16 14 B/P (MAP) 132/77 (95) Pulse Ox 96 O2 Delivery Room Air Room Air 12/26/16 16:22 Resp 14 General: Awake, alert, no acute distress HEENT: Normocephalic, atraumatic, extraocular movements intact CV: Regular rate and rhythm Lungs: Clear to auscultation bilaterally Abd: Soft, nontender, nondistended Extremities: Intact pedal pulses bilat Neuro: Alert and oriented 3, normal speech Psych: Normal mood and affect Labs and Imaging: Laboratory Tests Laboratory Tests 12/26/16 06:45 Red Blood Count 2.91 L, Mean Corpuscular Volume 98.4 H, Mean Corpuscular Hemoglobin 33.0, Mean Corpuscular Hemoglobin Concent 33.6, Red Cell Distribution Width 14.2, Calcium Level 8.1 L, Aspartate Amino Transf (AST/SGOT) 15, Alanine Aminotransferase (ALT/SGPT) 14, Alkaline Phosphatase 93, Total Bilirubin 0.5, Total Protein 5.5 L, Albumin 2.3 L Assessment and Plan: 61-year-old female with anxiety and depression, alcohol abuse, who slipped and fell in a dark bathroom and has been found to have a right hip fracture and minimally displaced left second and third rib fractures. 1. Right hip fracture: Management as per orthopedics. Status post operative repair. 2. Rib fractures: Management as per orthopedics. Pain is currently controlled. 3. Leukocytosis: WBC upon admission was 14.2, but this has now returned to normal. The patient has been afebrile. I suspect this was reactive in nature. Continue to monitor 4. Anemia: The patient's hemoglobin upon admission was 12.9. The day after admission, it had dropped to 9.8. The patient denies any bleeding. Upon review of the CBC, appears that she was very hemoconcentrated, as all of her lines have dropped. I suspect that hemoconcentration with rehydration is largely to account for this drop in hemoglobin. However, POD #1, we see that her hemoglobin was just below 8. Although there was no evidence of bleeding, she did recently have surgery, so we transfused her 1 unit of PRBCs and saw her Hgb rise to the 9s. Continue to monitor hemoglobin. 5. Anxiety and depression: Continue home Lexapro. 6. Alcohol abuse: Continue as needed Serax and Ativan. Continue folic acid, thiamine, multivitamin. DVT prophylaxis: As per orthopedics, currently on Lovenox Dispo: pending stabilization of hemoglobin, as well as clearance by orthopedics VS, I&O, 24H, Fishbone Vital Signs/I&O Vital Signs Date Time Temp Pulse Resp B/P (MAP) Pulse Ox O2 Delivery O2 Flow Rate FiO2 12/26/16 16:22 14 12/26/16 14:00 97.6 92 132/77 (95) 96 Room Air 12/25/16 05:53 2.0 I&O- Last 24 Hours up to 6 AM 12/26/16 06:00 Intake Total 1260 ml Output Total 1550 ml Balance -290 ml Laboratory Data 24H LABS Laboratory Tests 2 12/26/16 06:45: Anion Gap 7L, Glomerular Filtration Rate > 60.0, Blood Urea Nitrogen 5L, Creatinine 0.58, Sodium Level 137, Potassium Level 3.7, Chloride Level 102, Carbon Dioxide Level 28, Calcium Level 8.1L, Aspartate Amino Transf (AST/SGOT) 15, Alanine Aminotransferase (ALT/SGPT) 14, Alkaline Phosphatase 93, Total Bilirubin 0.5, Total Protein 5.5L, Albumin 2.3L, Magnesium Level 1.7L, Albumin/ Globulin Ratio 0.72L CBC/BMP Laboratory Tests 12/26/16 06:45 Red Blood Count 2.91 L, Mean Corpuscular Volume 98.4 H, Mean Corpuscular Hemoglobin 33.0, Mean Corpuscular Hemoglobin Concent 33.6, Red Cell Distribution Width 14.2, Calcium Level 8.1 L, Aspartate Amino Transf (AST/SGOT) 15, Alanine Aminotransferase (ALT/SGPT) 14, Alkaline Phosphatase 93, Total Bilirubin 0.5, Total Protein 5.5 L, Albumin 2.3 L MOJGAN MCKAY Dec 26, 2016 16:47
[2016-12-26 22:00] VITALS: BP 133/79
[2016-12-27] MEDS: LORazepam 2 MG/ML VIAL (J2060) IV PRN ×2 (00:07→21:09)
[2016-12-27] MEDS: PERCOCET 5MG/325MG TAB PO PRN ×3 (05:16→18:21)
[2016-12-27 06:00] VITALS: BP 179/86
[2016-12-27 07:24] LABS: MEAN CORPUSCULAR HEMOGLOBIN 33.6 pg (27.0-33.0); MEAN CORPUSCULAR HGB CONC 34.8 g/dl (32.0-36.5); MEAN CORPUSCULAR VOLUME 96.6 fl (80.0-96.0); RED CELL DISTRIBUTION WIDTH 13.6 % (11.5-14.5); WHITE BLOOD COUNT 7.2 K/mm3 (4.0-10.0)
[2016-12-27 07:41] LABS: ALBUMIN 2.2 GM/DL (3.2-5.2); ALBUMIN/GLOBULIN RATIO 0.81 (1.00-1.93); ALKALINE PHOSPHATASE 87 U/L (45-117); ALT/SGPT 12 U/L (12-78); ANION GAP 10 MEQ/L (8-16); AST/SGOT 13 U/L (15-37); BILIRUBIN,TOTAL 0.6 MG/DL (0.2-1.0); BLOOD UREA NITROGEN 5 MG/DL (7-18); CALCIUM LEVEL 7.7 MG/DL (8.8-10.2); CARBON DIOXIDE LEVEL 26 MEQ/L (21-32); CHLORIDE LEVEL 103 MEQ/L (98-107); CREATININE FOR GFR 0.45 MG/DL (0.55-1.02); GLOMERULAR FILTRATION RATE > 60.0 (>45); GLUCOSE, FASTING 99 MG/DL (80-110); MAGNESIUM LEVEL 1.7 MG/DL (1.8-2.4); POTASSIUM SERUM 3.5 MEQ/L (3.5-5.1); SODIUM LEVEL 139 MEQ/L (136-145); TOTAL PROTEIN 4.9 GM/DL (6.4-8.2)
[2016-12-27] MEDS: MAG SULF 1GM/100ML (MAG RUN) 1 GM in APPROPRIATE DILUENT 1 EA IV SCH ×2 (08:00→09:00)
[2016-12-27] MEDS: FOLIC ACID 1 MG TAB PO SCH (09:39)
[2016-12-27] MEDS: ESCITALOPRAM OXALATE 5MG TABLET (LEXAPRO) PO SCH (09:39)
[2016-12-27] MEDS: THIAMINE 100 MG TAB PO SCH (09:39)
[2016-12-27] MEDS: MULTIVITAMINS/MINERALS THERAP 1 TAB PO SCH (09:39)
[2016-12-27] MEDS: ENOXAPARIN 30 MG/0.3 ML SYR (J1650) SC SCH (09:40)
[2016-12-27] MEDS: MORPHINE 2 MG/ML 1ML SYRINGE IV PRN ×3 (10:41→17:34)
[2016-12-27 14:00] VITALS: BP 139/73
--- NOTE | 2016-12-27 14:45 | IPNPDOC ---
Date Seen The patient was seen on 12/27/16. Progress Note Hospitalist Progress Note Subjective: Patient has a lot of pain in her leg when she moves but denies any chest/rib pain Objective: Physical Exam: Vitals: Vital Sign - Last 24 Hours 12/25/16 12/25/16 12/25/16 12/26/16 21:00 22:00 22:13 01:07 Temp 98.9 Pulse 96 Resp 14 18 16 B/P (MAP) 126/61 (82) Pulse Ox 97 O2 Delivery Room Air Room Air 12/26/16 12/26/16 12/26/16 12/26/16 04:08 06:00 07:45 07:55 Temp 97.8 Pulse 93 Resp 18 14 14 12 B/P (MAP) 160/77 (104) Pulse Ox 96 O2 Delivery Room Air 12/26/16 12/26/16 12/26/16 12/26/16 07:57 11:37 14:00 15:52 Temp 97.6 Pulse 92 Resp 14 16 14 B/P (MAP) 132/77 (95) Pulse Ox 96 O2 Delivery Room Air Room Air 12/26/16 16:22 Resp 14 General: Awake, alert, no acute distress HEENT: Normocephalic, atraumatic, extraocular movements intact CV: Regular rate and rhythm Lungs: Clear to auscultation bilaterally Abd: Soft, nontender, nondistended Extremities: Intact pedal pulses bilat Neuro: Alert and oriented 3, normal speech Psych: Normal mood and affect Labs and Imaging: Laboratory Tests Laboratory Tests 12/26/16 06:45 Red Blood Count 2.91 L, Mean Corpuscular Volume 98.4 H, Mean Corpuscular Hemoglobin 33.0, Mean Corpuscular Hemoglobin Concent 33.6, Red Cell Distribution Width 14.2, Calcium Level 8.1 L, Aspartate Amino Transf (AST/SGOT) 15, Alanine Aminotransferase (ALT/SGPT) 14, Alkaline Phosphatase 93, Total Bilirubin 0.5, Total Protein 5.5 L, Albumin 2.3 L Assessment and Plan: 61-year-old female with anxiety and depression, alcohol abuse, who slipped and fell in a dark bathroom and has been found to have a right hip fracture and minimally displaced left second and third rib fractures. 1. Right hip fracture: Management as per orthopedics. Status post operative repair. 2. Rib fractures: Management as per orthopedics. Pain is currently controlled. 3. Leukocytosis: WBC upon admission was 14.2, but this has now returned to normal. The patient has been afebrile. I suspect this was reactive in nature. Continue to monitor 4. Anemia: The patient's hemoglobin upon admission was 12.9. The day after admission, it had dropped to 9.8. The patient denies any bleeding. Upon review of the CBC, appears that she was very hemoconcentrated, as all of her lines have dropped. I suspect that hemoconcentration with rehydration is largely to account for this drop in hemoglobin. However, POD #1, we see that her hemoglobin was just below 8. Although there was no evidence of bleeding, she did recently have surgery, so we transfused her 1 unit of PRBCs and saw her Hgb rise to the 9s. Continue to monitor hemoglobin, which has now been stable. 5. Anxiety and depression: Continue home Lexapro. 6. Alcohol abuse: Continue as needed Serax and Ativan. Continue folic acid, thiamine, multivitamin. DVT prophylaxis: As per orthopedics, currently on Lovenox Dispo: pending clearance by orthopedics VS, I&O, 24H, Fishbone Vital Signs/I&O Vital Signs Date Time Temp Pulse Resp B/P (MAP) Pulse Ox O2 Delivery O2 Flow Rate FiO2 12/27/16 14:05 18 12/27/16 06:00 99.7 98 179/86 (117) 95 Room Air 12/25/16 05:53 2.0 I&O- Last 24 Hours up to 6 AM 12/27/16 05:59 Intake Total 1700 ml Output Total 1750 ml Balance -50 ml Laboratory Data 24H LABS Laboratory Tests 2 12/27/16 06:39: Anion Gap 10, Glomerular Filtration Rate > 60.0, Blood Urea Nitrogen 5L, Creatinine 0.45L, Sodium Level 139, Potassium Level 3.5, Chloride Level 103, Carbon Dioxide Level 26, Calcium Level 7.7L, Aspartate Amino Transf (AST/SGOT) 13L, Alanine Aminotransferase (ALT/SGPT) 12, Alkaline Phosphatase 87, Total Bilirubin 0.6, Total Protein 4.9L, Albumin 2.2L, Magnesium Level 1.7L, Albumin/ Globulin Ratio 0.81L CBC/BMP Laboratory Tests 12/27/16 06:39 Red Blood Count 2.86 L, Mean Corpuscular Volume 96.6 H, Mean Corpuscular Hemoglobin 33.6 H, Mean Corpuscular Hemoglobin Concent 34.8, Red Cell Distribution Width 13.6, Calcium Level 7.7 L, Aspartate Amino Transf (AST/SGOT) 13 L, Alanine Aminotransferase (ALT/SGPT) 12, Alkaline Phosphatase 87, Total Bilirubin 0.6, Total Protein 4.9 L, Albumin 2.2 L MOJGAN MCKAY Dec 27, 2016 14:45
[2016-12-27 22:00] VITALS: BP 159/71
[2016-12-28] MEDS: PERCOCET 5MG/325MG TAB PO PRN ×4 (00:11→18:42)
[2016-12-28] MEDS: MORPHINE 2 MG/ML 1ML SYRINGE IV PRN (03:33)
[2016-12-28 06:00] VITALS: BP 142/68
[2016-12-28 08:13] LABS: MEAN CORPUSCULAR HEMOGLOBIN 33.3 pg (27.0-33.0); RED CELL DISTRIBUTION WIDTH 13.4 % (11.5-14.5); WHITE BLOOD COUNT 6.4 K/mm3 (4.0-10.0)
[2016-12-28 08:42] LABS: ALBUMIN 2.2 GM/DL (3.2-5.2); ALBUMIN/GLOBULIN RATIO 0.76 (1.00-1.93); ALKALINE PHOSPHATASE 83 U/L (45-117); ALT/SGPT 12 U/L (12-78); ANION GAP 7 MEQ/L (8-16); AST/SGOT 13 U/L (15-37); BILIRUBIN,TOTAL 0.6 MG/DL (0.2-1.0); BLOOD UREA NITROGEN 5 MG/DL (7-18); CALCIUM LEVEL 7.6 MG/DL (8.8-10.2); CARBON DIOXIDE LEVEL 31 MEQ/L (21-32); CHLORIDE LEVEL 104 MEQ/L (98-107); CREATININE FOR GFR 0.52 MG/DL (0.55-1.02); GLOMERULAR FILTRATION RATE > 60.0 (>45); GLUCOSE, FASTING 91 MG/DL (80-110); MAGNESIUM LEVEL 1.8 MG/DL (1.8-2.4); POTASSIUM SERUM 3.8 MEQ/L (3.5-5.1); SODIUM LEVEL 142 MEQ/L (136-145); TOTAL PROTEIN 5.1 GM/DL (6.4-8.2)
[2016-12-28] MEDS: ESCITALOPRAM OXALATE 5MG TABLET (LEXAPRO) PO SCH (09:35)
[2016-12-28] MEDS: THIAMINE 100 MG TAB PO SCH (09:35)
[2016-12-28] MEDS: MULTIVITAMINS/MINERALS THERAP 1 TAB PO SCH (09:35)
[2016-12-28] MEDS: FOLIC ACID 1 MG TAB PO SCH (09:35)
[2016-12-28] MEDS: ENOXAPARIN 30 MG/0.3 ML SYR (J1650) SC SCH (09:36)
--- NOTE | 2016-12-28 13:16 | IPNPDOC ---
Date Seen The patient was seen on 12/28/16. Progress Note Hospitalist Progress Note Subjective: Patient continues to have pain in her leg when she moves but denies any chest/rib pain Objective: Physical Exam: Vitals: Vital Sign - Last 24 Hours 12/27/16 12/27/16 12/27/16 12/27/16 14:00 14:05 17:34 18:21 Temp 97.0 Pulse 95 Resp 16 18 20 18 B/P (MAP) 139/73 (95) Pulse Ox 96 O2 Delivery Room Air 12/27/16 12/28/16 12/28/16 12/28/16 22:00 00:11 03:33 03:43 Temp 98.1 Pulse 86 Resp 16 18 18 18 B/P (MAP) 159/71 (100) Pulse Ox 98 O2 Delivery Room Air 12/28/16 12/28/16 12/28/16 06:00 09:35 10:05 Temp 97.6 Pulse 81 Resp 14 18 18 B/P (MAP) 142/68 (92) Pulse Ox 95 O2 Delivery Room Air General: Awake, alert, no acute distress HEENT: Normocephalic, atraumatic, extraocular movements intact CV: Regular rate and rhythm Lungs: Clear to auscultation bilaterally Abd: Soft, nontender, nondistended Extremities: Intact pedal pulses bilat Neuro: Alert and oriented 3, normal speech Psych: Normal mood and affect Labs and Imaging: Laboratory Tests 12/28/16 07:51 Red Blood Count 2.91 L, Mean Corpuscular Volume 98.0 H, Mean Corpuscular Hemoglobin 33.3 H, Mean Corpuscular Hemoglobin Concent 34.0, Red Cell Distribution Width 13.4, Calcium Level 7.6 L, Aspartate Amino Transf (AST/SGOT) 13 L, Alanine Aminotransferase (ALT/SGPT) 12, Alkaline Phosphatase 83, Total Bilirubin 0.6, Total Protein 5.1 L, Albumin 2.2 L Assessment and Plan: 61-year-old female with anxiety and depression, alcohol abuse, who slipped and fell in a dark bathroom and has been found to have a right hip fracture and minimally displaced left second and third rib fractures. 1. Right hip fracture: Management as per orthopedics. Status post operative repair. 2. Rib fractures: Management as per orthopedics. Pain is currently controlled. 3. Leukocytosis: WBC upon admission was 14.2, but this has now returned to normal. The patient has been afebrile. I suspect this was reactive in nature. Continue to monitor 4. Anemia: The patient's hemoglobin upon admission was 12.9. The day after admission, it had dropped to 9.8. The patient denies any bleeding. Upon review of the CBC, appears that she was very hemoconcentrated, as all of her lines have dropped. I suspect that hemoconcentration with rehydration is largely to account for this drop in hemoglobin. However, POD #1, we see that her hemoglobin was just below 8. Although there was no evidence of bleeding, she did recently have surgery, so we transfused her 1 unit of PRBCs and saw her Hgb rise to the 9s. Continue to monitor hemoglobin, which has now been stable. 5. Anxiety and depression: Continue home Lexapro. 6. Alcohol abuse: Continue as needed Serax and Ativan. Continue folic acid, thiamine, multivitamin. DVT prophylaxis: As per orthopedics, currently on Lovenox; they state she will need 4 wks of lovenox and can be WBAT Dispo: transfer to SNF status VS, I&O, 24H, [facility] Vital Signs/I&O Vital Signs Date Time Temp Pulse Resp B/P (MAP) Pulse Ox O2 Delivery O2 Flow Rate FiO2 12/28/16 10:05 18 12/28/16 06:00 97.6 81 142/68 (92) 95 Room Air 12/25/16 05:53 2.0 I&O- Last 24 Hours up to 6 AM 12/28/16 06:00 Intake Total 1320 ml Output Total 650 ml Balance 670 ml Laboratory Data 24H LABS Laboratory Tests 2 12/28/16 07:51: Anion Gap 7L, Glomerular Filtration Rate > 60.0, Blood Urea Nitrogen 5L, Creatinine 0.52L, Sodium Level 142, Potassium Level 3.8, Chloride Level 104, Carbon Dioxide Level 31, Calcium Level 7.6L, Aspartate Amino Transf (AST/SGOT) 13L, Alanine Aminotransferase (ALT/SGPT) 12, Alkaline Phosphatase 83, Total Bilirubin 0.6, Total Protein 5.1L, Albumin 2.2L, Magnesium Level 1.8, Albumin/ Globulin Ratio 0.76L CBC/BMP Laboratory Tests 12/28/16 07:51 Red Blood Count 2.91 L, Mean Corpuscular Volume 98.0 H, Mean Corpuscular Hemoglobin 33.3 H, Mean Corpuscular Hemoglobin Concent 34.0, Red Cell Distribution Width 13.4, Calcium Level 7.6 L, Aspartate Amino Transf (AST/SGOT) 13 L, Alanine Aminotransferase (ALT/SGPT) 12, Alkaline Phosphatase 83, Total Bilirubin 0.6, Total Protein 5.1 L, Albumin 2.2 L MOJGAN MCKAY Dec 28, 2016 13:16
[2016-12-28 14:00] VITALS: BP 139/74
[2016-12-28] MEDS: LORazepam 2 MG/ML VIAL (J2060) IV PRN (20:52)
[2016-12-28 22:00] VITALS: BP 143/76
[2016-12-29] MEDS: PERCOCET 5MG/325MG TAB PO PRN ×6 (00:10→23:34)
[2016-12-29 06:00] VITALS: BP 140/78
[2016-12-29] MEDS: FOLIC ACID 1 MG TAB PO SCH (10:42)
[2016-12-29] MEDS: ENOXAPARIN 30 MG/0.3 ML SYR (J1650) SC SCH (10:42)
[2016-12-29] MEDS: ESCITALOPRAM OXALATE 5MG TABLET (LEXAPRO) PO SCH (10:42)
[2016-12-29] MEDS: THIAMINE 100 MG TAB PO SCH (10:42)
[2016-12-29] MEDS: MULTIVITAMINS/MINERALS THERAP 1 TAB PO SCH (10:42)
[2016-12-29 14:00] VITALS: BP 132/79
[2016-12-29] MEDS: LORazepam 2 MG/ML VIAL (J2060) IV PRN ×2 (16:42→21:48)
[2016-12-29 22:00] VITALS: BP 127/69
[2016-12-30 06:00] VITALS: BP 154/74
[2016-12-30] MEDS: MULTIVITAMINS/MINERALS THERAP 1 TAB PO SCH (09:39)
[2016-12-30] MEDS: FOLIC ACID 1 MG TAB PO SCH (09:39)
[2016-12-30] MEDS: ESCITALOPRAM OXALATE 5MG TABLET (LEXAPRO) PO SCH (09:39)
[2016-12-30] MEDS: THIAMINE 100 MG TAB PO SCH (09:39)
[2016-12-30] MEDS: ENOXAPARIN 30 MG/0.3 ML SYR (J1650) SC SCH (09:40)
[2016-12-30] MEDS: PERCOCET 5MG/325MG TAB PO PRN ×3 (09:52→20:06)
[2016-12-30] MEDS: ONDANSETRON 4MG/2ML VIAL (J2405) IV PRN (09:53)
[2016-12-30] MEDS ORDERED: clonazePAM 0.5 MG TAB PO ONE (12:45)
[2016-12-30 14:00] VITALS: BP 122/60
[2016-12-30] MEDS ORDERED: zolPIDEM TARTRATE 5 MG TAB PO ONE (21:45)
[2016-12-30 22:00] VITALS: BP 128/66
[2016-12-31] MEDS: PERCOCET 5MG/325MG TAB PO PRN ×5 (01:57→20:48)
[2016-12-31 06:00] VITALS: BP 123/67
[2016-12-31 06:53] LABS: BASO % 0.4 % (0.0-1.0); EOS # 0.2 K/mm3 (0.0-0.50); EOS % 2.9 % (0.0-3.0); LARGE UNSTAINED CELL # 0.3 K/mm3 (0.0-0.4); LARGE UNSTAINED CELL % 3.3 % (0.0-4.0); LYMPH # 2.4 K/mm3 (1.5-4.5); MEAN CORPUSCULAR HEMOGLOBIN 32.5 pg (27.0-33.0); MEAN CORPUSCULAR HGB CONC 32.9 g/dl (32.0-36.5); MEAN CORPUSCULAR VOLUME 98.6 fl (80.0-96.0); MONO # 0.7 K/mm3 (0.0-0.8); NEUTROPHILS # 4.2 K/mm3 (1.8-7.7); NEUTROPHILS % 55.4 % (36.0-66.0); PLATELET COUNT, AUTOMATED 481 k/mm3 (150-450); RED CELL DISTRIBUTION WIDTH 13.4 % (11.5-14.5); WHITE BLOOD COUNT 7.6 K/mm3 (4.0-10.0)
[2016-12-31 07:19] LABS: ANION GAP 5 MEQ/L (8-16); BLOOD UREA NITROGEN 9 MG/DL (7-18); CALCIUM LEVEL 8.3 MG/DL (8.8-10.2); CARBON DIOXIDE LEVEL 32 MEQ/L (21-32); CHLORIDE LEVEL 102 MEQ/L (98-107); CREATININE FOR GFR 0.68 MG/DL (0.55-1.02); GLOMERULAR FILTRATION RATE > 60.0 (>45); GLUCOSE, FASTING 91 MG/DL (80-110); MAGNESIUM LEVEL 1.8 MG/DL (1.8-2.4); POTASSIUM SERUM 3.8 MEQ/L (3.5-5.1); SODIUM LEVEL 139 MEQ/L (136-145)
[2016-12-31 08:03] VITALS: BP 127/81
[2016-12-31 08:15] VITALS: BP 127/81
[2016-12-31] MEDS: MULTIVITAMINS/MINERALS THERAP 1 TAB PO SCH (08:27)
[2016-12-31] MEDS: ESCITALOPRAM OXALATE 5MG TABLET (LEXAPRO) PO SCH (08:27)
[2016-12-31] MEDS: THIAMINE 100 MG TAB PO SCH (08:27)
[2016-12-31] MEDS: FOLIC ACID 1 MG TAB PO SCH (08:28)
[2016-12-31] MEDS: ENOXAPARIN 30 MG/0.3 ML SYR (J1650) SC SCH (08:29)
[2016-12-31] MEDS ORDERED: diazePAM 5 MG TAB PO SCH (09:00)
[2016-12-31] MEDS: diphenhydrAMINE 25 MG CAP PO PRN ×2 (12:54→20:47)
[2016-12-31 14:00] VITALS: BP 127/64
[2016-12-31] MEDS: diazePAM 5 MG TAB PO SCH (20:48)
[2016-12-31] MEDS ORDERED: zolPIDEM TARTRATE 5 MG TAB PO ONE (21:00)
[2017-01-01] MEDS: PERCOCET 5MG/325MG TAB PO PRN ×5 (01:37→22:07)
[2017-01-01 06:00] VITALS: BP 124/72
[2017-01-01] MEDS: diphenhydrAMINE 25 MG CAP PO PRN ×3 (07:32→20:16)
[2017-01-01] MEDS: ESCITALOPRAM OXALATE 5MG TABLET (LEXAPRO) PO SCH (08:27)
[2017-01-01] MEDS: MULTIVITAMINS/MINERALS THERAP 1 TAB PO SCH (08:27)
[2017-01-01] MEDS: THIAMINE 100 MG TAB PO SCH (08:27)
[2017-01-01] MEDS: ENOXAPARIN 30 MG/0.3 ML SYR (J1650) SC SCH (08:28)
[2017-01-01] MEDS: FOLIC ACID 1 MG TAB PO SCH (08:28)
[2017-01-01] MEDS: diazePAM 5 MG TAB PO SCH (20:16)
[2017-01-02] MEDS: diphenhydrAMINE 25 MG CAP PO PRN ×4 (02:16→20:45)
[2017-01-02] MEDS: PERCOCET 5MG/325MG TAB PO PRN ×5 (02:16→20:12)
[2017-01-02] MEDS: ENOXAPARIN 30 MG/0.3 ML SYR (J1650) SC SCH (08:33)
[2017-01-02] MEDS: FOLIC ACID 1 MG TAB PO SCH (08:33)
[2017-01-02] MEDS: THIAMINE 100 MG TAB PO SCH (08:33)
[2017-01-02] MEDS: ESCITALOPRAM OXALATE 5MG TABLET (LEXAPRO) PO SCH (08:33)
[2017-01-02] MEDS: MULTIVITAMINS/MINERALS THERAP 1 TAB PO SCH (08:33)
[2017-01-02] MEDS: diazePAM 5 MG TAB PO SCH (20:45)
[2017-01-02 22:00] VITALS: BP 157/71
[2017-01-03] MEDS: PERCOCET 5MG/325MG TAB PO PRN ×6 (00:18→23:44)
[2017-01-03] MEDS ORDERED: PERCOCET 5MG/325MG TAB PO PRN (00:45)
[2017-01-03] MEDS: diphenhydrAMINE 25 MG CAP PO PRN ×3 (04:21→23:43)
[2017-01-03 06:00] VITALS: BP 137/66
[2017-01-03 06:57] LABS: BASO % 0.5 % (0.0-1.0); EOS # 0.2 K/mm3 (0.0-0.50); EOS % 2.4 % (0.0-3.0); LARGE UNSTAINED CELL # 0.3 K/mm3 (0.0-0.4); LARGE UNSTAINED CELL % 3.8 % (0.0-4.0); LYMPH # 2.6 K/mm3 (1.5-4.5); LYMPH % 33.2 % (24.0-44.0); MEAN CORPUSCULAR HEMOGLOBIN 32.7 pg (27.0-33.0); MEAN CORPUSCULAR HGB CONC 33.3 g/dl (32.0-36.5); MEAN CORPUSCULAR VOLUME 98.1 fl (80.0-96.0); MONO # 0.5 K/mm3 (0.0-0.8); MONO % 6.5 % (0.0-5.0); NEUTROPHILS # 4.1 K/mm3 (1.8-7.7); NEUTROPHILS % 53.5 % (36.0-66.0); PLATELET COUNT, AUTOMATED 732 k/mm3 (150-450); RED CELL DISTRIBUTION WIDTH 13.3 % (11.5-14.5); WHITE BLOOD COUNT 7.7 K/mm3 (4.0-10.0)
[2017-01-03 07:05] LABS: ANION GAP 7 MEQ/L (8-16); BLOOD UREA NITROGEN 12 MG/DL (7-18); CALCIUM LEVEL 8.7 MG/DL (8.8-10.2); CARBON DIOXIDE LEVEL 28 MEQ/L (21-32); CHLORIDE LEVEL 108 MEQ/L (98-107); CREATININE FOR GFR 0.72 MG/DL (0.55-1.02); GLOMERULAR FILTRATION RATE > 60.0 (>45); GLUCOSE, FASTING 84 MG/DL (80-110); MAGNESIUM LEVEL 1.7 MG/DL (1.8-2.4); POTASSIUM SERUM 4.3 MEQ/L (3.5-5.1); SODIUM LEVEL 143 MEQ/L (136-145)
[2017-01-03] MEDS: FOLIC ACID 1 MG TAB PO SCH (08:51)
[2017-01-03] MEDS: ENOXAPARIN 30 MG/0.3 ML SYR (J1650) SC SCH (08:51)
[2017-01-03] MEDS: THIAMINE 100 MG TAB PO SCH (08:51)
[2017-01-03] MEDS: MULTIVITAMINS/MINERALS THERAP 1 TAB PO SCH (08:51)
[2017-01-03] MEDS: ESCITALOPRAM OXALATE 5MG TABLET (LEXAPRO) PO SCH (08:51)
[2017-01-03] MEDS ORDERED: PERC5TAB12 PO (08:59)
[2017-01-03] MEDS ORDERED: LOVE1INJ2 SC (08:59)
[2017-01-03 14:00] VITALS: BP 125/65
[2017-01-03] MEDS: diazePAM 5 MG TAB PO SCH (20:34)
[2017-01-03 22:00] VITALS: BP 152/73
[2017-01-04] MEDS: PERCOCET 5MG/325MG TAB PO PRN ×2 (05:18→09:42)
[2017-01-04 06:00] VITALS: BP 145/67
[2017-01-04] MEDS: FOLIC ACID 1 MG TAB PO SCH (09:41)
[2017-01-04] MEDS: MULTIVITAMINS/MINERALS THERAP 1 TAB PO SCH (09:41)
[2017-01-04] MEDS: THIAMINE 100 MG TAB PO SCH (09:41)
[2017-01-04] MEDS: ESCITALOPRAM OXALATE 5MG TABLET (LEXAPRO) PO SCH (09:41)
[2017-01-04] MEDS: ENOXAPARIN 30 MG/0.3 ML SYR (J1650) SC SCH (11:03)
--- NOTE | 2017-01-04 15:29 | DS.PDOC ---
Discharge Summary General Date of Admission Dec 23, 2016 at 17:22 Date of Discharge 01/04/17 Specialist/Consultants Involve: ALIN PALMA MD Discharge Summary PROCEDURES PERFORMED DURING STAY: Open reduction internal fixation of the right femur ADMITTING/DISCHARGE DIAGNOSES: Right hip revealed comminuted intertrochanteric femoral neck fracture s/p ORIF Displaced left second and third rib fractures COMPLICATIONS/CHIEF COMPLAINT: Intertrochanteric Fracture Of Right Hip. HISTORY OF PRESENT ILLNESS: . 61-year-old female with an active past medical history significant only for anxiety/depression, and alcohol abuse presented to the ER after she slipped and fell at home yesterday evening. The patient states that she was trying to go to the bathroom, and it was dark in her home and she says suddenly tripped and fell landing on her right side. She denies any prodromal symptoms of chest pain , palpitations, shortness of breath, abdominal pain, or any nausea/vomiting. The patient presented to the ER for further evaluation. In the ER, an x-ray of the right hip revealed comminuted intertrochanteric femoral neck fracture. In addition, a chest x-ray revealed minimally displaced left second and third rib fractures. The hospitalist team was called for admission. Orthopedic surgery was consulted for surgical indication. During hospitalization, orthopedic surgery performed an open reduction internal fixation of the right femur. In addition, patient was provided supportive treatment for the left-sided rib fractures. Otherwise, the patient was continued on her previously prescribed regimen of medications. At this time, the patient states that she is eager to return home and she has been cleared by physical therapy to do so. I've advised the patient to follow-up with her primary care physician within 7 days, and with orthopedic surgery as scheduled. She has also been consulted to return to the ER for any acute emergencies. DISCHARGE MEDICATIONS: Please see below. ALLERGIES: Please see below. PHYSICAL EXAMINATION ON DISCHARGE: VITAL SIGNS: Please see below. GENERAL: Awake, alert, in no acute distress HEENT: Normocephalic, atraumatic NECK: No JVD CARDIOVASCULAR EXAMINATION: Normal rate, regular rhythm RESPIRATORY EXAMINATION: Clear to auscultation bilaterally ABDOMINAL EXAMINATION: Soft, nontender, nondistended EXTREMITIES: Right hip noted with surgical dressing. Distal pulses intact LABORATORY DATA: Please see below. IMAGING: Clinical: Trauma. Technique: Frontal view of the pelvis with neutral and cross-table lateral views of the right hip. Findings: There is a right comminuted intertrochanteric femoral neck fracture. The left hip and remainder of the pelvis demonstrates osteopenia and degenerative changes without further acute fracture. Impression: Right comminuted intertrochanteric femoral neck fracture Clinical: Trauma. Technique: Supine AP view of the chest. Comparison: 12/18/2013. Findings: Multiple acute left rib fractures are identified including minimally displaced left second and third rib fractures. Mediastinum and cardiac silhouette are normal. The lung franco are without consolidation, effusion, or obvious pneumothorax. Impression: Few acute left rib fractures are identified. No obvious consolidation, effusion, or pneumothorax. PROGNOSIS: Fair ACTIVITY: As tolerated. DIET: . Regular DISCHARGE PLAN: DISPOSITION: [facility]. DISCHARGE INSTRUCTIONS: 1. . Follow-up with primary care physician within 7 days 2. . Follow-up with orthopedic surgery as scheduled 3. . Adhere to medication regimen as prescribed DISCHARGE CONDITION: Stable. TIME SPENT ON DISCHARGE: Greater than 30 minutes. Vital Signs/I&Os Vital Signs Date Time Temp Pulse Resp B/P (MAP) Pulse Ox O2 Delivery O2 Flow Rate FiO2 01/04/17 09:42 18 01/04/17 06:00 98.0 71 145/67 (93) 95 Room Air Discharge Medications Scheduled Enoxaparin Sodium (Lovenox) 30 Mg/0.3 Ml Inj, 30 MG SC DAILY Escitalopram Oxalate (Lexapro) 10 Mg Tab, 5 MG PO DAILY, (Reported) Scheduled PRN Diazepam (Valium) 5 Mg Tab, 5 MG PO DAILY PRN for ANXIETY, (Reported) Diphenoxylate/Atropine (Lomotil 2.5-0.025 mg) 1 Tab Tab, 1 TAB PO QID PRN for DIARRHEA, (Reported) Oxycodone/Acetaminophen (Percocet 5-325 mg) 1 Tab Tab, 1-2 TAB PO Q4H PRN for PAIN Allergies Coded Allergies: No Known Drug Allergy (Verified Allergy, Unknown, 10/23/16) LISA ROLLINS MD Jan 04, 2017 15:29
== END 2017-01-04 11:25 | disposition home health service (06) | DRG 912 ==
LOC: M ED 14:52 → M ED INP 17:22 → M MS5PR 23:57
PROVIDERS: ADMIT Internal Medicine; ATTEND Internal Medicine
PROC: 0QS604Z Reposition Right Upper Femur with Internal Fixation Device, Open Approach (ICD-10-PCS; principal; 2016-12-24 08:20)
DX: S72.141A Displaced intertrochanteric fracture of right femur, initial encounter for closed fracture (principal); S22.42XA Multiple fractures of ribs, left side, initial encounter for closed fracture; Z79.899 Other long term (current) drug therapy; F17.200 Nicotine dependence, unspecified, uncomplicated; Z85.038 Personal history of other malignant neoplasm of large intestine; F32.9 Major depressive disorder, single episode, unspecified; F41.9 Anxiety disorder, unspecified; F10.10 Alcohol abuse, uncomplicated; D64.9 Anemia, unspecified; W18.30XA Fall on same level, unspecified, initial encounter; K21.9 Gastro-esophageal reflux disease without esophagitis; Y92.009 Unspecified place in unspecified non-institutional (private) residence as the place of occurrence of the external cause

== ENCOUNTER → 2017-09-25 | Outpatient (REF) | payer OTHER ==
[2017-09-25 15:49] LABS: BASO # 0.1 10^3/uL (0.0-0.2); BASO % 0.6 % (0.0-1.0); EOS % 0.4 % (0.0-3.0); HEMATOCRIT 38.6 % (36.0-47.0); IMMATURE GRANULOCYTE % 0.5 % (0-3.0); LYMPH # 3.2 10^3/uL (1.5-4.5); LYMPH % 37.6 % (24.0-44.0); MEAN CORPUSCULAR HEMOGLOBIN 32.4 pg (27.0-33.0); MEAN CORPUSCULAR HGB CONC 33.7 g/dl (32.0-36.5); MEAN CORPUSCULAR VOLUME 96.3 fl (80.0-96.0); MONO # 0.5 10^3/uL (0.0-0.8); MONO % 6.4 % (0.0-5.0); NEUTROPHILS # 4.6 10^3/uL (1.8-7.7); NEUTROPHILS % 54.5 % (36.0-66.0); PLATELET COUNT, AUTOMATED 366 10^3/uL (150-450); RED BLOOD COUNT 4.01 10^6/uL (4.00-5.40); WHITE BLOOD COUNT 8.5 10^3/uL (4.0-10.0)
[2017-09-25 16:14] LABS: ERYTHROCYTE SEDIMENTATION RATE 14 mm/hr (0-30)
[2017-09-25 16:32] LABS: ALBUMIN 4.1 GM/DL (3.2-5.2); ALBUMIN/GLOBULIN RATIO 1.14 (1.00-1.93); ALKALINE PHOSPHATASE 64 U/L (45-117); ALT/SGPT 19 U/L (12-78); ANION GAP 12 MEQ/L (8-16); AST/SGOT 18 U/L (7-37); BILIRUBIN,TOTAL 0.5 MG/DL (0.2-1.0); BLOOD UREA NITROGEN 14 MG/DL (7-18); C REACTIVE PROTEIN QUANTITATIV < 0.30 MG/DL (0.00-0.30); CALCIUM LEVEL 9.2 MG/DL (8.8-10.2); CARBON DIOXIDE LEVEL 24 MEQ/L (21-32); CHLORIDE LEVEL 101 MEQ/L (98-107); CREATININE FOR GFR 0.85 MG/DL (0.55-1.30); GLOMERULAR FILTRATION RATE > 60.0 (>45); GLUCOSE, FASTING 110 MG/DL (70-100); POTASSIUM SERUM 4.1 MEQ/L (3.5-5.1); SODIUM LEVEL 137 MEQ/L (136-145); TOTAL PROTEIN 7.7 GM/DL (6.4-8.2)
[2017-09-28 00:08] LABS: VITAMIN D 1,25 DIHYDROXY 41.7 pg/mL (19.9-79.3)
== END ==
LOC: M LAB REF 15:25
DX: S72.141D Displaced intertrochanteric fracture of right femur, subsequent encounter for closed fracture with routine healing (principal); W18.30XD Fall on same level, unspecified, subsequent encounter; Y92.009 Unspecified place in unspecified non-institutional (private) residence as the place of occurrence of the external cause

== ENCOUNTER → 2017-10-25 | Outpatient (REF) | payer OTHER ==
[2017-10-25 16:46] LABS: BASO % 0.4 % (0.0-1.0); EOS % 0.4 % (0.0-3.0); HEMATOCRIT 36.6 % (36.0-47.0); HEMOGLOBIN 12.5 g/dl (12.0-15.5); IMMATURE GRANULOCYTE % 0.5 % (0-3.0); LYMPH # 2.8 10^3/uL (1.5-4.5); LYMPH % 36.6 % (24.0-44.0); MEAN CORPUSCULAR HEMOGLOBIN 32.9 pg (27.0-33.0); MEAN CORPUSCULAR HGB CONC 34.2 g/dl (32.0-36.5); MEAN CORPUSCULAR VOLUME 96.3 fl (80.0-96.0); MONO # 0.6 10^3/uL (0.0-0.8); MONO % 8.3 % (0.0-5.0); NEUTROPHILS % 53.8 % (36.0-66.0); PLATELET COUNT, AUTOMATED 347 10^3/uL (150-450); RED CELL DISTRIBUTION WIDTH 13.4 % (11.5-14.5); WHITE BLOOD COUNT 7.5 10^3/uL (4.0-10.0)
[2017-10-25 16:48] LABS: ANION GAP 13 MEQ/L (8-16); BLOOD UREA NITROGEN 18 MG/DL (7-18); CALCIUM LEVEL 9.4 MG/DL (8.8-10.2); CARBON DIOXIDE LEVEL 24 MEQ/L (21-32); CHLORIDE LEVEL 99 MEQ/L (98-107); CREATININE FOR GFR 0.92 MG/DL (0.55-1.30); GLOMERULAR FILTRATION RATE > 60.0 (>45); GLUCOSE, FASTING 86 MG/DL (70-100); POTASSIUM SERUM 4.4 MEQ/L (3.5-5.1); SODIUM LEVEL 136 MEQ/L (136-145)
== END ==
LOC: M LABDRAW1 15:13
DX: Z01.818 Encounter for other preprocedural examination (principal)

== ENCOUNTER 2018-09-22 12:59 | Emergency (ER) | payer OTHER ==
[~2018-09-22] VITALS: Ht 157.5 cm; Wt 50.5 kg
[~2018-09-22 12:59] MED LIST changes: -/ESCI10TA; -/ONDA4TA; +LEXA1TAB; +LOVE1INJ2 SC; +ONDA-1; +PERC5TAB12 PO; +TEMA30CA PO
[2018-09-22] MEDS ORDERED: PRED10TA2 PO (15:14)
[2018-09-22] MEDS ORDERED: AMIT25TA PO (15:14)
[2018-09-22] MEDS ORDERED: ESCI10TA2 PO (15:14)
[2018-09-22] MEDS ORDERED: ELIM5CRE2 TOP (16:03)
[2018-09-22] MEDS ORDERED: BENA25CA4 PO (16:04)
[2018-09-22 16:16] VITALS: BP 199/91
== END 2018-09-22 16:18 | disposition home or self-care (01) ==
LOC: M ED 15:55
DX: B86 Scabies (principal); F41.9 Anxiety disorder, unspecified; Z79.899 Other long term (current) drug therapy; F17.210 Nicotine dependence, cigarettes, uncomplicated

== ENCOUNTER 2018-11-18 11:53 | Emergency (ER) | payer OTHER ==
[~2018-11-18] VITALS: Ht 157.5 cm; Wt 51.4 kg
[~2018-11-18 11:53] MED LIST changes: +AMIT25TA PO; +BENA25CA4 PO; +ELIM5CRE2 TOP; +ESCI10TA2 PO; +PRED10TA2 PO
[2018-11-18] MEDS ORDERED: AMIT50TA (12:00)
[2018-11-18] MEDS ORDERED: ESCI20TA (12:00)
[2018-11-18] MEDS ORDERED: traMADol 50 MG TAB As Ordered ONE (12:25)
[2018-11-18] MEDS ORDERED: traMADol 50 MG TAB PO ONE (12:30)
[2018-11-18] MEDS ORDERED: ACETAMINOPHEN TAB 650MG DOSE (2X325MG) PO ONE (12:30)
[2018-11-18] MEDS ORDERED: MORPHINE 4 MG/ML 1ML VIAL/SYRINGE (J2270) IM ONE ×2 (13:30→15:30)
--- NOTE | 2018-11-18 14:19 | REP ---
CHEST, SINGLE VIEW: Single view of the chest is performed and compared to a prior study of 12/23/2016. There appears to be an area of scarring the right upper lobe which is stable. There is no new infiltrate or pneumothorax. The heart is normal in size. Mediastinal silhouette is unremarkable. There is a small hiatal hernia. IMPRESSION: No acute pulmonary disease. Electronically Signed by Av Monique MD 11/19/2018 10:36 A
--- NOTE | 2018-11-18 14:22 | REP ---
THORACIC SPINE SERIES: Three AP and lateral views of the thoracic spine are performed. There is a moderate compression deformity at T12, which could represent an acute compression fracture. There is no other evidence of acute fracture or dislocation. There is normal thoracic kyphosis. There is minor diffuse spurring. There is disc space narrowing at some of the upper thoracic disc levels with mild subchondral sclerosis. The posterior elements are intact. IMPRESSION: Diffuse degenerative changes. Moderate compression of T12 could be acute and is certainly new since prior CT of the thoracic spine 12/23/2016. Electronically Signed by Av Monique MD 11/19/2018 10:37 A
[2018-11-18] MEDS ORDERED: PERC5TAB12 PO (17:30)
[2018-11-18 17:39] VITALS: BP 158/88
--- NOTE | 2018-11-19 07:06 | REP ---
CT THORACIC SPINE WITHOUT CONTRAST: HISTORY: Trauma. There is an acute fracture of the T11 vertebral body with mild height loss and minimal retropulsion. There is no subluxation. There is no definite disc bulge or herniation. The neural foramina are patent. IMPRESSION: Acute T11 compression fracture with mild height loss and minimal retropulsion. Electronically Signed by Teo Cole MD 11/19/2018 08:19 A
--- NOTE | 2018-11-19 12:31 | ED PDOC ---
Post-Departure Follow-Up keatong and dr adela liz faxed formal report of ct t spine for fu Ethan Knapp MD Nov 19, 2018 12:31
== END 2018-11-18 17:41 | disposition home or self-care (01) ==
LOC: M ED 11:53
DX: S22.089A Unspecified fracture of T11-T12 vertebra, initial encounter for closed fracture (principal); W01.0XXA Fall on same level from slipping, tripping and stumbling without subsequent striking against object, initial encounter; Y92.89 Other specified places as the place of occurrence of the external cause; E11.9 Type 2 diabetes mellitus without complications; F33.9 Major depressive disorder, recurrent, unspecified; F41.9 Anxiety disorder, unspecified; F10.10 Alcohol abuse, uncomplicated; Z79.899 Other long term (current) drug therapy; F17.210 Nicotine dependence, cigarettes, uncomplicated
CPT/HCPCS: 71045; 72072; 72128; 96372; 99283; J2270

== ENCOUNTER 2019-02-26 03:44 | Inpatient (IN) | payer OTHER ==
[~2019-02-26] VITALS: Ht 162.6 cm; Wt 49.8 kg
[2019-02-26] VITALS (18 sets, daily range): BP systolic 83–147; BP diastolic 51–84
[~2019-02-26 03:44] MED LIST changes: +AMIT50TA; +ESCI20TA
[2019-02-26] MEDS ORDERED: MIDAZOLAM INJ 2 MG/2 ML VIAL (J2250) IV STA ×2 (03:51→07:00)
[2019-02-26 04:17] LABS: BASO # 0.1 10^3/uL (0.0-0.2); BASO % 0.4 % (0.0-1.0); EOS # 0.1 10^3/uL (0.0-0.5); EOS % 0.8 % (0.0-3.0); HEMATOCRIT 32.6 % (36.0-47.0); HEMOGLOBIN 10.9 g/dl (12.0-15.5); LYMPH # 4.1 10^3/uL (1.5-5.0); LYMPH % 32.5 % (24.0-44.0); MEAN CORPUSCULAR HEMOGLOBIN 32.5 pg (27.0-33.0); MEAN CORPUSCULAR HGB CONC 33.4 g/dl (32.0-36.5); MEAN CORPUSCULAR VOLUME 97.3 fl (80.0-96.0); MONO # 0.8 10^3/uL (0.0-0.8); MONO % 6.1 % (0.0-5.0); NEUTROPHILS # 7.5 10^3/uL (1.5-8.5); NEUTROPHILS % 59.1 % (36.0-66.0); PLATELET COUNT, AUTOMATED 323 10^3/uL (150-450); RED BLOOD COUNT 3.35 10^6/uL (4.00-5.40); WHITE BLOOD COUNT 12.8 10^3/uL (4.0-10.0)
[2019-02-26 04:27] LABS: INR 0.91
--- NOTE | 2019-02-26 04:28 | REPVR ---
PROCEDURE INFORMATION: Exam: CT Head Without Contrast Exam date and time: 02/26/2019 3:52 AM Clinical history: 63 years old, female; Altered mental status/memory loss; Other: Unresponsive TECHNIQUE: Imaging protocol: Computed tomography of the head without contrast. Radiation optimization: All CT scans at this facility use at least one of these dose optimization techniques: automated exposure control; mA and/or kV adjustment per patient size (includes targeted exams where dose is matched to clinical indication); or iterative reconstruction. COMPARISON: CT Head without contrast 12/23/2016 3:18 PM FINDINGS: Brain: Generalized parenchymal atrophy and evidence of microvascular ischemic disease involving periventricular and subcortical white matter bilaterally. Ventricles: Normal. No ventriculomegaly. Bones/joints: Unremarkable. No acute fracture. Sinuses: Visualized sinuses are unremarkable. No fluid levels. Mastoid air cells: Visualized mastoid air cells are well aerated. Soft tissues: Unremarkable. IMPRESSION: No acute intracranial pathology. Electronically signed by: Chase Whatley On 02/26/2019 04:27:59 AM
[2019-02-26] MEDS: MIDAZOLAM INJ 2 MG/2 ML VIAL (J2250) IV PRN ×11 (04:32→22:53)
[2019-02-26] MEDS ORDERED: NS 1,000 ML IV ONE (05:00)
[2019-02-26 05:15] LABS: AMPHETAMINES LEVEL URINE NEGATIVE (NEGATIVE); BARBITURATES URINE NEGATIVE (NEGATIVE); BENZODIAZEPINES URINE NEGATIVE (NEGATIVE); CANNABINOIDS URINE POSITIVE (NEGATIVE); COCAINE METABOLITE URINE NEGATIVE (NEGATIVE); METHADONE URINE NEGATIVE (NEGATIVE); OPIATES URINE NEGATIVE (NEGATIVE); PHENCYCLIDINE URINE NEGATIVE (NEGATIVE)
--- NOTE | 2019-02-26 05:18 | REP ---
Clinical: Altered mental status . Comparison: 11/18/2018 . Findings: The mediastinum and cardiac silhouette are stable and within normal limits for portable technique. The lung franco are clear without acute consolidation, effusion, or pneumothorax. Skeletal structures are intact. Impression: No acute cardiopulmonary process appreciated. Electronically Signed by Remberto Wilson MD 02/26/2019 05:09 A
[2019-02-26 05:22] LABS: ACETAMINOPHEN LEVEL < 2.0 UG/ML (10.0-30.0); ALBUMIN 3.4 GM/DL (3.2-5.2); ALT/SGPT 17 U/L (12-78); BILIRUBIN,DIRECT < 0.1 MG/DL (0.0-0.2); BILIRUBIN,TOTAL 0.2 MG/DL (0.2-1.0); BLOOD UREA NITROGEN 15 MG/DL (7-18); CALCIUM LEVEL 8.3 MG/DL (8.8-10.2); CARBON DIOXIDE LEVEL 29 MEQ/L (21-32); CHLORIDE LEVEL 95 MEQ/L (98-107); CK-MB VALUE MASS 5.4 NG/ML (<3.6); CPK CREATINE PHOSPHOKINASE 202 U/L (26-192); CREATININE FOR GFR 0.83 MG/DL (0.55-1.30); ETHYL ALCOHOL (ETHANOL) 0.181 % (0.000-0.010); GLOMERULAR FILTRATION RATE > 60.0 (>45); GLUCOSE, FASTING 96 MG/DL (70-100); MB/CK RELATIVE INDEX 2.67 (< OR =4); POTASSIUM SERUM 5.5 MEQ/L (3.5-5.1); SALICYLATE LEVEL 5.4 MG/DL (5.0-30.0); SODIUM LEVEL 131 MEQ/L (136-145); TOTAL PROTEIN 6.5 GM/DL (6.4-8.2); TROPONIN I < 0.02 NG/ML (< 0.10)
[2019-02-26] MEDS ORDERED: MULTIVITAMIN -ADULT INJECTION 10 ML, THIAMINE INJection 100 MG, FOLIC ACID 1 MG in NS 1... IV ONE ×3 (05:30→10:00)
[2019-02-26] MEDS ORDERED: LACTULOSE 20 GM/30 ML SYRUP UD PR ONE (05:45)
[2019-02-26] MEDS ORDERED: LORazepam 2 MG/ML VIAL (J2060) IV PRN (06:00)
[2019-02-26] MEDS ORDERED: NS 1,000 ML IV SCH (06:00)
[2019-02-26] MEDS ORDERED: AMIT50TA PO (06:01)
[2019-02-26] MEDS ORDERED: LOMO2.5T PO (06:01)
[2019-02-26] MEDS ORDERED: ESCI20TA PO (06:01)
[2019-02-26] MEDS ORDERED: methylPREDNISolone INJ 125 MG/2 ML VIAL (J2930) IV STA (06:27)
[2019-02-26] MEDS ORDERED: REFRIGERATOR IV KEYS XX PRN (06:30)
[2019-02-26] MEDS ORDERED: LEVALBUTEROL 1.25 MG/0.5 ML CONCENTRATE NEB NEB PRN (06:30)
[2019-02-26] MEDS ORDERED: MIDAZOLAM INJ 2 MG/2 ML VIAL (J2250) As Ordered ONE (06:50)
[2019-02-26 06:58] LABS: VENOUS BASE EXCESS -1.7 (-2.0-2.0); VENOUS HCO3 23.1 MEQ/L (23.0-27.0); VENOUS O2 SATURATION 99.3 % (60.0-80.0); VENOUS PARTIAL PRESSURE CO2 39.2 mmHg (38.0-50.0); VENOUS PARTIAL PRESSURE O2 222.3 mmHg (30.0-50.0); VENOUS PH 7.388 UNITS (7.330-7.430); VENOUS STANDARD HCO3 23.1 MEQ/L; VENOUS TOTAL CO2 24.3 MEQ/L (24.0-28.0)
[2019-02-26] MEDS ORDERED: fentaNYL CITRATE 1,000 MCG in NS 80 ML IV SCH (07:00)
[2019-02-26] MEDS ORDERED: MIDAZOLAM HCL 100 MG in D5W 80 ML IV SCH (07:00)
[2019-02-26] MEDS ORDERED: MIDAZOLAM INJ 2 MG/2 ML VIAL (J2250) IV ONE ×2 (07:00→07:15)
--- NOTE | 2019-02-26 07:06 | HPEPDOC ---
[facility] Medical History & Physical Date of Admission Feb 26, 2019 Date of Service: Feb 26, 2019 Primary Care Physician: A Other Provider Aaron Ng MD Attending Physician: TAMMI MOORE MD History and Physical CHIEF COMPLAINT: Unresponsiveness HISTORY OF PRESENT ILLNESS: Indira Champion is a 63-year-old female with history of alcohol abuse who presents to the ED this evening via EMS as her awoke suddenly at 3 AM and heard her moaning and thrashing about in her room. He reports that she was last known well last night prior to going to sleep around 10 PM. She reportedly drank 2-3 beers as she does on most nights. To his knowledge, she did not ingest any other substances. She has not had any recent illnesses including any fevers, chills, nausea, vomiting or diarrhea. She has been in her normal state of health prior to this episode. She has no history of seizures. In the ED, she was found to be unresponsive and agitated, requiring several doses of Versed. She is using accessory muscles of respiration and was sedated. Therefore, the decision was made to intubate her in order to protect her airway. She will be admitted to the ICU at this time. PAST MEDICAL HISTORY: 1. Anxiety/depression 2. Alcohol abuse 3. Frequent falls 4. History of femoral neck fracture status post ORIF 5. History of left second and third rib fractures PAST SURGICAL HISTORY: 1. ORIF femoral neck right hip SOCIAL HISTORY: Smokes 1 pack per day for about 40 years, reportedly drinks 2-3 beers a night, smokes marijuana, no other drugs FAMILY HISTORY: Noncontributory ALLERGIES: Please see below. REVIEW OF SYSTEMS: Unable to perform review of systems as patient was unresponsive HOME MEDICATIONS: Please see below. PHYSICAL EXAMINATION: VITAL SIGNS: Please see below. GENERAL APPEARANCE: Laying in bed, unresponsive, using accessory muscles of respiration, appearing uncomfortable HEENT: EOMI, PERRLA, tongue and mucous membranes are dry, neck is supple with no thyromegaly or lymphadenopathy RESPIRATORY: Wheezing is appreciated in all lung franco, accessory muscle use, decreased air entry CARDIOVASCULAR: no JVD, tachycardic, no murmurs/rubs/gallops ABDOMEN: Soft, nontender to palpation in all four quadrants, no masses/organomegaly EXTREMITIES: no clubbing, cyanosis or edema noted NEUROLOGICAL: Unable to perform, gag reflex is present, toes are upgoing Skin: No rashes or ulcers. LN: No significant cervical or inguinal lymphadenopathy LABORATORY DATA: See below. IMAGING: HEAD CT: "IMPRESSION: No acute intracranial pathology." CXR: "Findings: The mediastinum and cardiac silhouette are stable and within normal limits for portable technique. The lung franco are clear without acute consolidation, effusion, or pneumothorax. Skeletal structures are intact. Impression: No acute cardiopulmonary process appreciated." MICROBIOLOGY: Please see below. ASSESSMENT: This is a 63-year-old female with history of alcohol abuse, questionable liver disease who presented with altered mental status and unresponsiveness likely secondary to alcohol intoxication and acute encephalopathy. Her home medications are unknown at this time. PLAN: 1. Acute Vent Dependent Hypoxemic hypercarbic respiratory failure / Acute COPD -7.3/47.5/73 -Patient was using accessory muscles of respiration and was acutely sedated so she was intubated to protect her airway -Patient has a history of COPD; duonenikki, albuterol ordered -Pulmonary consulted. Appreciate recommendations. -Patient was intubated as she was using accessory muscles of respiration and nee ded to protect her airway due to sedation. -ICU attending contacted regarding ventilator management. -Versed/Fentanyl/Chlorhexidine -f/u Post-intubation chest x-ray & ABG pending 2. Acute encephalopathy -possibly metabolic encephalopathy -Ammonia level found to be 67. Status post lactulose given in ED. -Alcohol level elevated at 0.181. Patient given 3 doses of Versed in ED for acute confusion and suspected intoxication. -CT of head was negative -Will order lactulose -Neuro checks q4h 3. SIRS -Patient is tachycardic with increased respiratory rate and elevated WBC -qSOFA score = 2 -Blood and Sputum cultures ordered and pending -UA ordered 4. Hyperkalemia -Potassium found to be 5.5 with no EKG changes. -Could be secondary to medication side effect. -Will recheck BMP later today 5. Anemia -Hgb found to be 10.9, MCV 97.3 -Likely 2/2 B12 vs thiamine deficiency from alcoholism 6. Alcoholism -[facility] protocol in place -Thiamine, multivitamin, Folic acid Feeding: Tube feeds after intubated Analgesia: Fentanyl Sedation: Versed DVT ppx: Heparin Head of bed elevated Ulceration ppx: PPI Glycemic control: BGL 140-180 Spontaneous breathing trial as needed Bowel care Indwelling catheter: powell Dispo:pending clinical course/ she will need more than 2 midnight's stay Vital Signs Vital Signs Date Time Temp Pulse Resp B/P (MAP) Pulse Ox O2 Delivery O2 Flow Rate FiO2 02/26/19 04:40 98.7 02/26/19 04:34 134 30 111/66 (81) 95 Nasal Cannula 2.0 Laboratory Data Labs 24H Laboratory Tests 2 02/26/19 04:06: Immature Granulocyte % (Auto) 1.1, Neutrophils (%) (Auto) 59.1, Lymphocytes (%) (Auto) 32.5, Monocytes (%) (Auto) 6.1H, Eosinophils (%) (Auto) 0.8, Basophils (%) (Auto) 0.4, Neutrophils # (Auto) 7.5, Lymphocytes # (Auto) 4.1, Monocytes # (Auto) 0.8, Eosinophils # (Auto) 0.1, Basophils # (Auto) 0.1, Nucleated Red Blood Cells % (auto) 0.0, Prothrombin Time 12.0, Prothromb Time International Ratio 0.91, Anion Gap 7L, Glomerular Filtration Rate > 60.0, Lactic Acid Level 2.4*H, Calcium Level 8.3L, Total Bilirubin 0.2, Direct Bilirubin < 0.1, Aspartate Amino Transf (AST/SGOT) 19, Alanine Aminotransferase (ALT/SGPT) 17, Alkaline Phosphatase 100, Ammonia 67H, Total Creatine Kinase 202H, Creatine Kinase MB 5.4H, Creatine Kinase MB Relative Index 2.67, Troponin I < 0.02, Total Protein 6.5, Albumin 3.4, Albumin/Globulin Ratio 1.10, Thyroid Stimulating Hormone (TSH) 2.250, Salicylates Level 5.4, Urine Opiates Screen NEGATIVE, Urine Methadone Screen NEGATIVE, Acetaminophen Level < 2.0L, Urine Barbiturates Screen NEGATIVE, Urine Phencyclidine Screen NEGATIVE, Urine Amphetamines Screen NEGATIVE, Urine Benzodiazepines Screen NEGATIVE, Urine Cocaine Metabolite Screen NEGATIVE, Urine Cannabinoids Screen POSITIVEH, Ethyl Alcohol Level 0.181H 02/26/19 04:18: Bedside Glucose (Misc Panel) 114 02/26/19 05:40: POC pH (Misc Panel) 7.302L, POC Base Excess (Misc Panel) -3.0L, POC Saturated Percent O2 (Misc) 93L, POC pO2 (Misc Panel) 73.0L, POC pCO2 (Misc Panel) 47.5H, POC HCO3 (Misc Panel) 23.5, POC Total CO2 (Misc Panel) 25.0 CBC/BMP Laboratory Tests 02/26/19 04:06 Home Medications Scheduled Amitriptyline HCl (Amitriptyline HCl) 50 Mg Tablet, 50 MG PO QHS Escitalopram Oxalate (Escitalopram Oxalate) 20 Mg Tablet, 20 MG PO DAILY Scheduled PRN Diphenoxylate HCl/Atropine (Lomotil 2.5-0.025 mg Tablet) 1 Each Tablet, 1 TAB PO DAILY PRN for DIARRHEA Allergies Coded Allergies: No Known Allergies (Verified Allergy, Unknown, 02/26/19) A-FIB/CHADSVASC A-FIB History Current/History of A-Fib/PAF?: No Current PO Anticoag Therapy: No GME ATTESTATION GME ATTESTATION My faculty preceptor for this patient encounter was physically present during the encounter and was fully available. All aspects of the patient interview, examination, medical decision making process, and medical care plan development were reviewed and approved by the faculty preceptor. The faculty preceptor is aware and concurs with the plan as stated in the body of this note and will attest to such by his/her cosignature. ATTENDING NOTE I examined the patient at 620am, discussed the case with and agree with the findings as documented. CC time 35 min LISHA MACEDO MD Feb 26, 2019 05:56 TAMMI MOORE MD Feb 26, 2019 07:27
[2019-02-26] MEDS ORDERED: MIDAZOLAM INJ 5 MG/ML VIAL (J2250) As Ordered ONE (07:10)
[2019-02-26] MEDS ORDERED: ETOMIDATE INJ 20MG/10ML VIAL IV ONE (07:15)
[2019-02-26] MEDS ORDERED: ROCURONIUM BROMIDE 50 MG/5 ML VIAL IV ONE (07:15)
[2019-02-26] MEDS ORDERED: HEPARIN SOD (PORCINE) 5000 UNITS/ML VIAL SQ SCH (07:15)
[2019-02-26] MEDS ORDERED: SUCCINYLCHOLINE INJ 200 MG/10 ML VIAL (J0330) IV ONE (07:15)
--- NOTE | 2019-02-26 07:17 | REP ---
Clinical: Status post intubation. Technique: Single portable supine view of the chest. Findings: Endotracheal tube terminates approximately 4.5 cm above the maco. Nasogastric tube courses below left hemidiaphragm. Cardiac silhouette and mediastinum are normal. Lung franco demonstrate chronic-appearing interstitial changes. Biapical opacities suggest pleuroparenchymal scarring. No focal consolidation. No effusion. No pneumothorax. Skeletal structures demonstrate age-related degenerative change. Impression: 1. Endotracheal tube and nasogastric tube in satisfactory position. 2. No obvious acute mediastinal or pleuroparenchymal process appreciated. Electronically Signed by Remberto Wilson MD 02/26/2019 07:08 A
--- NOTE | 2019-02-26 07:28 | ECGEPIP ---
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
[2019-02-26] MEDS ORDERED: PROPOFOL 1,000 MG/100 ML VIAL As Ordered ONE ×2 (07:34→10:52)
[2019-02-26] MEDS ORDERED: COMBIVENT RESPIMAT 100-20MCG INHALER 4GM INH SCH (08:00)
[2019-02-26] MEDS ORDERED: MIDAZOLAM INJ 5 MG/ML VIAL (J2250) IM ONE (08:00)
[2019-02-26] MEDS ORDERED: ALBUTEROL SULFATE 2.5 MG/0.5 ML INH NEB SOLN NEB PRN (08:15)
[2019-02-26] MEDS ORDERED: MORPHINE 2 MG/ML 1ML VIAL (J2270) IV PRN (08:15)
[2019-02-26 08:59] LABS: AMYLASE 122 U/L (25-115); LIPASE 122 U/L (73-393)
[2019-02-26] MEDS ORDERED: THIAMINE HCL 200 MG/2 ML VIAL (J3411) IM SCH (09:00)
[2019-02-26] MEDS ORDERED: FOLIC ACID 1 MG in NS 50 ML IV SCH (09:00)
[2019-02-26] MEDS ORDERED: PANTOPRAZOLE 40MG TAB (PROTONIX) PO SCH (09:00)
[2019-02-26] MEDS: LACTULOSE 20 GM/30 ML SYRUP UD PO SCH ×4 (09:27→23:55)
[2019-02-26] MEDS: CHLORHEXIDINE GLUCONATE 0.12 % 15ML UDC (PERIDEX ORAL RINSE) MT SCH ×2 (09:33→21:05)
[2019-02-26] MEDS: NS 1,000 ML IV SCH ×2 (09:34→18:06)
[2019-02-26] MEDS: HEPARIN SOD (PORCINE) 5000 UNITS/ML VIAL SC SCH ×2 (09:34→21:05)
[2019-02-26] MEDS ORDERED: LORazepam 2 MG TAB PO PRN (10:00)
[2019-02-26] MEDS: NICOTINE 21MG/24HR 1 EA TRANSDERMAL TD SCH (10:41)
[2019-02-26] MEDS: PANTOPRAZOLE 40MG INJ (PROTONIX) (C9113) IV SCH (10:41)
[2019-02-26 10:51] LABS: ABG BASE EXCESS -1.8 (-2.0-2.0); ABG HCO3 22.7 MEQ/L (22.0-26.0); ABG O2 SATURATION 96.4 % (95.0-99.0); ABG PARTIAL PRESSURE CO2 37.7 mmHg (35.0-45.0); ABG PARTIAL PRESSURE O2 87.3 mmHg (75.0-100.0); ABG STANDARD HCO3 22.9 MEQ/L (22.0-26.0); ABG TOTAL CO2 23.9 MEQ/L (23.0-31.0); ABG pH (ARTERIAL) 7.398 UNITS (7.350-7.450)
[2019-02-26] MEDS: IPRATROPIUM 0.5MG/ALBUTEROL 2.5MG INH SOL UD 3ML (DUONEB)(J7620) NEB SCH ×3 (11:09→19:47)
[2019-02-26] MEDS: PROPOFOL 1,000 MG in IV 1 EA IV SCH ×3 (12:29→18:09)
--- NOTE | 2019-02-26 12:49 | CR ---
DATE OF CONSULTATION: 02/26/2019 CHIEF COMPLAINT: I was asked by Dr. Jordan to emergently consult on Ms. Indira Champion for acute respiratory failure. HISTORY OF PRESENT ILLNESS: Ms. Champion is a 63-year-old female with past medical history notable for alcohol abuse, anxiety, and tobacco usage whose woke up this morning as he she heard her moaning. He reported to me that she had been on the couch and fallen forward and hit her face on the coffee table. He moved the coffee table out of the way and activated 911 when he could not arouse her. What the hospitalist contained in their note is that she had gone to bed around 10:00 p.m. and her woke up at 3:00 a.m. and heard her moaning and thrashing in her room. Nonetheless, her did find her agitated. When she was brought to the emergency department, she was agitated. She was given Versed and after having received that medication, she was unresponsive and was having poor respiratory effort, so she was intubated. Laboratory values that were subsequently found out included an ammonia level of 67. Her reports to me that she smokes three quarters to one pack per day and has done so for many years, likely dating back to her teenage years. He tells me she drinks three beers per night, although her alcohol level at 4 o'clock in the morning was 0.181. He reports that she has not had difficulty with withdrawals. He is not aware of any medical difficulties she has, he is telling me she simply had chronic back pain. He did tell me she saw her primary care per provider, Dr. Aaron Ng, last week. When asked as to why she was on some of her medications, most particularly amitriptyline at bed time he was not sure, but thought it was a sleeping medication. No other history is known. When questioned about the bruises he admits that she falls frequently, and says that she feels "dizzy." PAST MEDICAL HISTORY: ([facility]bt[facility] the , [facility] Includes: 1. Alcohol abuse. 2. Anxiety/depression. 3. Status post right femoral neck fracture following a fall. 4. Status post left 2nd and 3rd rib fractures following fall. 5. History of sigmoid colon cancer. a. Status post left hemicolectomy, colic anastomosis in 2009. 6. Status post left ankle ORIF. 7. Status post right shoulder surgery. 8. Status post right femur ORIF. 9. Tobacco usage, ongoing at the time of admission. FAMILY HISTORY: Unattainable secondary to intubation. However, in reviewing the chart, her father is and had a history of cancer. SOCIAL HISTORY: Unattainable secondary to intubation. However, what I learned from the is she is a smoker, having smoked three quarters to one pack per day likely since teenage years. This gives her close to, if not greater than, a 40 pack-year history. He reports that she drinks three beers per day. Her last admission she stated she drank a six pack several days a week. She also smokes marijuana. REVIEW OF SYSTEMS: Unattainable secondary intubation. What is known is contained within the HPI. PHYSICAL EXAMINATION: GENERAL: Ms. Champion is lying in bed synchronous with the ventilator. VITAL SIGNS: Temperature 98.7, pulse 107, blood pressure 145/90 with a MAP of 108, respiratory rate 15, SPO2 100% on an FiO2 of 0.5. HEENT: Anicteric, pupils 2 mm and sluggish. Nares: Patent bilaterally, blood inside both nares (arrived in the ED like that). Oropharynx moist mucosa, ET tube and OG tube in place. NECK: Supple, without JVD, without thyromegaly or masses. Trachea is midline. LYMPH: Without cervical or supraclavicular lymphadenopathy, though I question a slight fullness in the left supraclavicular region. CHEST: Normal shape. LUNGS: Symmetric excursion, fair air entry, rhonchi heard anteriorly but not posteriorly. No significant crackles or wheezes. Normal I:E. No accessory muscle usage or retractions. CARDIOVASCULAR: Tachycardic, regular rhythm, normal S1-S2, no murmur, rub or gallop appreciated. ABDOMEN: Diminished bit present bowel sounds, soft, nondistended, no hepatosplenomegaly or masses appreciated. I could not appreciate a wave. EXTREMITIES: Warm and well-perfused, without clubbing, cyanosis or edema, palpable pedal pulses bilaterally. NEUROLOGIC: Sedated, moves all four extremities equally. SKIN: Notable for bruises. She also has a well-healed mid abdominal scar just above the umbilicus and to the pubic symphysis region. LABORATORY DATA: CBC showed a hemoglobin of 10.9, hematocrit 32.6, platelet count 323,000, white blood cell count 12,800 with a differential of 59% neutrophils, 33% lymphocytes, 6% monocytes. Chemistry shows sodium 131, potassium 5.5, chloride 95, bicarbonate 29, anion gap 7, BUN 15, creatinine 0.8, glucose 96, calcium 8.3, total bilirubin 0.2, AST 19, ALT 17, alkaline phosphatase 100, ammonia 67, CK 202, CK-MB 5.4, troponin-I less than 0.02, total protein 6.5, albumin 3.4, amylase 122, lipase 122, TSH 2.25. Lactic acid 2.4 with a reflex of 1.7. INR is 0.91. Initial arterial blood gas was 7.30/48/73 with a measured saturation of 93% and a base excess of -3. Arterial blood gas all around the time of intubation was 7.39/39/222 with a measured saturation 99% and a base excess of -1.7. While this is listed in [employer] as a VBG, this undoubtedly as an ABG. Repeat arterial blood gas on mechanical ventilation with on PRVC with a tidal volume of 350, rate of 14, and PEEP of 5 with an FIO2 of 0.3 was 7.4/38/87 with a measured saturation 96% and a base excess of -1.8. Tox screen showed salicylates at 5.4, acetaminophen less than 2.0, EtOH level 0.181 and was positive for cannabinoids. I reviewed her chest x-ray as well as the report from earlier today. That x-ray shows normal appearing cardiac silhouette and pulmonary vascular shadows. There is some chronic changes. No consolidated regions. The lungs were well inflated but do not appear to be hyperinflated. The ET tube is in good position. OG tube is also in appropriate position. IMPRESSION: 1. Acute respiratory failure secondary to agitation and associated medications. 2. Hepatic encephalopathy. 3. Alcoholism. 4. Mildly elevated lipase. 5. Tobacco usage, ongoing at the time of admission. 6. Deep vein thrombosis (DVT) prophylaxis with subcutaneous heparin. 7. Stress ulcer prophylaxis with proton pump inhibitor (PPI). 8. Nutrition: Nothing by mouth. RECOMMENDATIONS: 1. Will continue mechanical ventilation though anticipate that she will be extubatable in the near future. Will place her on the lung-protective strategy for her mechanical ventilation. Her 6 mL/kg predicted body weight tidal volume is 328 mL; 7 mL/kg is 383 mL; 8 mL/kg is 438 mL. 2. Lactulose for elevated ammonia. 3. Secondary alcoholism. 4. Banana bag so that multivitamin, thiamine and folate are replaced. A banana bag is ordered daily, though likely will be able to convert over to other modalities to replace these substances in the near future. 5. Nicotine patch given tobacco history. 6. Will continue n.p.o. but would consider starting tube feeds tomorrow if she is not extubatable. Critical care time 45 minutes, not including procedure time.
[2019-02-26 13:25] LABS: APPEARANCE, URINE CLEAR (CLEAR); BACTERIA, URINE AUTO 1+ (NEGATIVE); BILIRUBIN, URINE AUTO NEGATIVE (NEGATIVE); BLOOD, URINE BLOOD 3+ (NEGATIVE); COLOR, URINE STRAW (YELLOW); GLUCOSE, URINE (UA) AUTO NEGATIVE (NEGATIVE); KETONE, URINE AUTO NEGATIVE (NEGATIVE); LEUKOCYTE ESTERASE, URINE AUTO NEGATIVE (NEGATIVE); MUCUS, URINE SMALL (NEGATIVE); NITRITE, URINE AUTO NEGATIVE (NEGATIVE); PROTEIN, URINE AUTO NEGATIVE (NEGATIVE); RBC, URINE AUTO 1 /HPF (0-3); SPECIFIC GRAVITY URINE AUTO 1.003 (1.002-1.035); SQUAMOUS EPITHELIAL CELL UR AU 0 /HPF (0-6); UROBILINOGEN, URINE AUTO 0.2 mg/dL (0.0-2.0); WBC, URINE AUTO 1 /HPF (0-3)
[2019-02-26 13:56] LABS: INFLUENZA A AMPLIFICATION NEGATIVE (NEGATIVE); INFLUENZA B AMPLIFICATION NEGATIVE (NEGATIVE)
--- NOTE | 2019-02-26 15:30 | REP ---
Right upper quadrant sonography: History: Assess for ascites. Patient with elevated ammonia level. Findings: Scan quality was inhibited by a patient's unresponsiveness and inability to move. Scanning demonstrates a normal sized thin-walled gallbladder without evidence of stone or polyp. Common bile duct is normal measuring 0.65 cm. No focal liver lesion is seen. There is no evidence of ascites. Limited views of the pancreas show no abnormality. No right renal abnormality is noted. The right kidney measures 9.2 x 5.4 x 5.0 cm. Impression: There is no evidence of ascites. Negative right upper quadrant sonography. Electronically Signed by Darien Jones MD 02/26/2019 11:10 A
--- NOTE | 2019-02-26 16:08 | IPNPDOC ---
Text Note Date of Service The patient was seen on 02/26/19. NOTE Seen this am. Subjective: Sedated and ventilated. Physical Exam; Vitals as below Genral : sedated and ventilated quiet HEENT: normocephalic, traumatic anicteric eyes moist mucous membranes, NG tube in place CVS: normal S1, S2, regular, no rub, murmur or gallop Resp: anteriorly clear to auscultation, bilateral vesicular breath sounds. Abd: soft, bowel sound Present. Extremities No edema labs and radiology reviewed. 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 VS,Fishbone, I+O VS, Fishbone, I+O Laboratory Tests 02/26/19 04:06 Vital Signs Date Time Temp Pulse Resp B/P (MAP) Pulse Ox O2 Delivery O2 Flow Rate FiO2 02/26/19 15:40 92 02/26/19 14:00 20 134/66 (88) 97 Ventilator 30 02/26/19 12:56 98.8 02/26/19 06:14 2.0 NEO GOLD MD Feb 26, 2019 16:08
[2019-02-27] VITALS (24 sets, daily range): BP systolic 102–156; BP diastolic 53–85
[2019-02-27] MEDS: IPRATROPIUM 0.5MG/ALBUTEROL 2.5MG INH SOL UD 3ML (DUONEB)(J7620) NEB SCH ×7 (00:14→23:45)
[2019-02-27] MEDS: MIDAZOLAM INJ 2 MG/2 ML VIAL (J2250) IV PRN ×5 (00:31→06:45)
[2019-02-27] MEDS: PROPOFOL 1,000 MG in IV 1 EA IV SCH ×2 (03:03→05:38)
[2019-02-27 05:19] LABS: BASO % 0.1 % (0.0-1.0); EOS % 0.3 % (0.0-3.0); HEMATOCRIT 27.6 % (36.0-47.0); HEMOGLOBIN 9.2 g/dl (12.0-15.5); LYMPH # 2.7 10^3/uL (1.5-5.0); LYMPH % 25.8 % (24.0-44.0); MEAN CORPUSCULAR HEMOGLOBIN 32.3 pg (27.0-33.0); MEAN CORPUSCULAR HGB CONC 33.3 g/dl (32.0-36.5); MEAN CORPUSCULAR VOLUME 96.8 fl (80.0-96.0); MONO # 0.7 10^3/uL (0.0-0.8); MONO % 6.7 % (0.0-5.0); NEUTROPHILS % 66.5 % (36.0-66.0); PLATELET COUNT, AUTOMATED 288 10^3/uL (150-450); RED BLOOD COUNT 2.85 10^6/uL (4.00-5.40); WHITE BLOOD COUNT 10.5 10^3/uL (4.0-10.0)
[2019-02-27] MEDS: LACTULOSE 20 GM/30 ML SYRUP UD PO SCH ×3 (05:37→19:19)
[2019-02-27] MEDS: NS 1,000 ML IV SCH ×3 (05:37→14:38)
[2019-02-27] MEDS: PANTOPRAZOLE 40MG INJ (PROTONIX) (C9113) IV SCH (05:38)
[2019-02-27 05:50] LABS: ALBUMIN 2.7 GM/DL (3.2-5.2); ALT/SGPT 14 U/L (12-78); BILIRUBIN,TOTAL 0.2 MG/DL (0.2-1.0); BLOOD UREA NITROGEN 9 MG/DL (7-18); CALCIUM LEVEL 8.2 MG/DL (8.8-10.2); CARBON DIOXIDE LEVEL 24 MEQ/L (21-32); CHLORIDE LEVEL 109 MEQ/L (98-107); CHOLESTEROL LEVEL 156 MG/DL (< 200); CPK CREATINE PHOSPHOKINASE 312 U/L (26-192); CREATININE FOR GFR 0.67 MG/DL (0.55-1.30); GLOMERULAR FILTRATION RATE > 60.0 (>45); GLUCOSE, FASTING 123 MG/DL (70-100); LDH LACTATE DEHYDROGENASE 155 U/L (84-246); MAGNESIUM LEVEL 1.6 MG/DL (1.8-2.4); PHOSPHORUS LEVEL 3.1 MG/DL (2.5-4.9); POTASSIUM SERUM 3.3 MEQ/L (3.5-5.1); SODIUM LEVEL 141 MEQ/L (136-145); TOTAL PROTEIN 5.9 GM/DL (6.4-8.2); TRIGLYCERIDES LEVEL 149 MG/DL (<150)
[2019-02-27 05:54] LABS: ABG HCO3 21.4 MEQ/L (22.0-26.0); ABG O2 SATURATION 97.6 % (95.0-99.0); ABG PARTIAL PRESSURE CO2 35.8 mmHg (35.0-45.0); ABG PARTIAL PRESSURE O2 100.1 mmHg (75.0-100.0); ABG TOTAL CO2 22.5 MEQ/L (23.0-31.0); ABG pH (ARTERIAL) 7.395 UNITS (7.350-7.450)
--- NOTE | 2019-02-27 07:56 | REP ---
Clinical: Status post intubation. Comparison: 02/26/2019. Findings: Endotracheal tube 1 cm above the maco and warrants reevaluation. Nasogastric tube courses below left hemidiaphragm. Mediastinum and cardiac silhouette normal. Lung franco are relatively clear/stable. No discrete focal consolidation, effusion, or pneumothorax. Subtle opacity along the periphery of the right mid lung zone is suggested and unchanged. Impression: 1. Endotracheal tube approaches the maco and warrants reevaluation. 2. Subtle opacity along the periphery of the right mid lung zone similar to prior examination. Electronically Signed by Remberto Wilson MD 02/27/2019 07:49 A
[2019-02-27] MEDS ORDERED: ENOXAPARIN 40 MG/0.4 ML SYRINGE (J1650) SC SCH (09:00)
[2019-02-27] MEDS ORDERED: THIAMINE HCL 200 MG/2 ML VIAL (J3411) IM SCH (09:00)
[2019-02-27] MEDS ORDERED: MULTIVITAMIN -ADULT INJECTION 10 ML, THIAMINE INJection 100 MG, FOLIC ACID 1 MG in NS 1... IV SCH (09:00)
[2019-02-27] MEDS ORDERED: FOLIC ACID 1 MG in NS 50 ML IV SCH (09:00)
--- NOTE | 2019-02-27 09:24 | CCN ---
DATE OF SERVICE: 02/27/2019 Ms. Champion is seen in the intensive care unit (ICU). She currently is on mechanical ventilation with plans to be taken off mechanical ventilation today as she is doing well and following commands. Nursing notes no issues overnight. The patient is afebrile. PHYSICAL EXAMINATION: Vitals: Temperature 99.1, pulse 116, blood pressure 137/65, respiratory rate 19, pulse oximetry 99%. The patient is on a ventilator, pressure regulated volume control, with tidal volume of 350, respiratory rate 14, PEEP of 5. She passed a spontaneous breathing trial. General: The patient is alert and oriented. She is currently on mechanical ventilation, but she does follow commands. HEENT: Head is normocephalic, atraumatic. Moist mucous membranes. Pupils equal and reactive. Neck: Neck is supple. Trachea is midline. No cervical lymphadenopathy. No obvious jugular venous distention (JVD). Heart: Slightly tachycardiac, but regular rate. No murmurs. Pulmonary: Clear to auscultation bilaterally. No wheezes, rales, rhonchi or crackles. Abdomen: Positive bowel sounds, soft, nontender. Extremities: No clubbing, cyanosis or edema. LABORATORY DATA: WBC 10.5, hemoglobin 9.2, hematocrit 27.6, platelets 288. Sodium 141, potassium 3.3, chloride 109, carbon dioxide 24, BUN 9, creatinine 0.67, glucose 123, calcium 8.2, phosphorus 3.1, magnesium 1.6, total bili 0.2, AST 18, ALT 14, alk phos 82, LD 155, creatinine 312, total protein 5.9, albumin 2.7, triglycerides 149, cholesterol 156. ABG - pH 7.395, pCO2 35.8, pO2 100.1. PT/INR from 02/26/2019, PT 12.0/INR 0.91. Blood culture pending. Chest x-ray with tip of the endotracheal tube is about 28 mm above the maco. There does appear to be a right upper lobe density consistent with a possible infiltrate. ASSESSMENT/PLAN: Respiratory failure. The patient will be extubated today as she is following commands and passed a spontaneous breathing trial. She does have a right upper lobe density on chest x-ray and this will require followup with a repeat chest x-ray in a day or two to ensure resolution of the density or determine if further evaluation is needed. At this point, pulmonary will sign off of this patient as the patient was successfully extubated. Pulmonary will be available if needed.
[2019-02-27] MEDS: NICOTINE 21MG/24HR 1 EA TRANSDERMAL TD SCH (10:32)
[2019-02-27] MEDS ORDERED: MAG SULF 1GM/100ML (MAG RUN) 1 GM in IV 1 EA IV ONE (13:30)
[2019-02-27] MEDS ORDERED: POTASSIUM CHLORIDE 10% LIQ 20 MEQ/15 ML UDC PO ONE (14:00)
[2019-02-27] MEDS: ACETAMINOPHEN TAB 650MG DOSE (2X325MG) PO PRN (14:49)
[2019-02-27] MEDS ORDERED: LORazepam 2 MG TAB PO PRN (20:15)
[2019-02-27] MEDS ORDERED: LOMOTIL 2.5MG/0.025MG TABLET PO PRN (20:30)
[2019-02-27] MEDS: ESCITALOPRAM OXALATE 10 MG TAB (LEXAPRO) PO SCH (20:31)
[2019-02-28] VITALS (10 sets, daily range): BP systolic 122–174; BP diastolic 58–84
[2019-02-28] MEDS: LACTULOSE 20 GM/30 ML SYRUP UD PO SCH
[2019-02-28] MEDS: IPRATROPIUM 0.5MG/ALBUTEROL 2.5MG INH SOL UD 3ML (DUONEB)(J7620) NEB SCH ×4 (04:00→16:00)
[2019-02-28] MEDS: PANTOPRAZOLE 40MG INJ (PROTONIX) (C9113) IV SCH (05:29)
[2019-02-28 05:31] LABS: BASO # 0.1 10^3/uL (0.0-0.2); BASO % 0.5 % (0.0-1.0); EOS # 0.1 10^3/uL (0.0-0.5); EOS % 1.3 % (0.0-3.0); HEMATOCRIT 29.4 % (36.0-47.0); HEMOGLOBIN 9.9 g/dl (12.0-15.5); LYMPH # 3.1 10^3/uL (1.5-5.0); LYMPH % 27.7 % (24.0-44.0); MEAN CORPUSCULAR HEMOGLOBIN 32.4 pg (27.0-33.0); MEAN CORPUSCULAR HGB CONC 33.7 g/dl (32.0-36.5); MEAN CORPUSCULAR VOLUME 96.1 fl (80.0-96.0); MONO # 0.6 10^3/uL (0.0-0.8); MONO % 5.4 % (0.0-5.0); NEUTROPHILS # 7.2 10^3/uL (1.5-8.5); NEUTROPHILS % 64.5 % (36.0-66.0); PLATELET COUNT, AUTOMATED 287 10^3/uL (150-450); RED BLOOD COUNT 3.06 10^6/uL (4.00-5.40); WHITE BLOOD COUNT 11.1 10^3/uL (4.0-10.0)
[2019-02-28 06:05] LABS: ALT/SGPT 15 U/L (12-78); BILIRUBIN,TOTAL 0.6 MG/DL (0.2-1.0); BLOOD UREA NITROGEN 3 MG/DL (7-18); CALCIUM LEVEL 8.1 MG/DL (8.8-10.2); CARBON DIOXIDE LEVEL 24 MEQ/L (21-32); CHLORIDE LEVEL 105 MEQ/L (98-107); CPK CREATINE PHOSPHOKINASE 229 U/L (26-192); CREATININE FOR GFR 0.57 MG/DL (0.55-1.30); GLOMERULAR FILTRATION RATE > 60.0 (>45); GLUCOSE, FASTING 88 MG/DL (70-100); LDH LACTATE DEHYDROGENASE 176 U/L (84-246); PHOSPHORUS LEVEL 2.9 MG/DL (2.5-4.9); POTASSIUM SERUM 3.7 MEQ/L (3.5-5.1); SODIUM LEVEL 138 MEQ/L (136-145); TRIGLYCERIDES LEVEL 74 MG/DL (<150)
[2019-02-28 06:06] LABS: ALBUMIN 2.8 GM/DL (3.2-5.2); CHOLESTEROL LEVEL 160 MG/DL (< 200); MAGNESIUM LEVEL 1.3 MG/DL (1.8-2.4); TOTAL PROTEIN 5.7 GM/DL (6.4-8.2)
--- NOTE | 2019-02-28 07:34 | IPNPDOC ---
Subjective Date Seen The patient was seen on 02/27/19. Subjective Chief Complaint/HPI unresponsiveness Objective Physical Examination General Exam: Positive: Cooperative, No Acute Distress Eye Exam: Positive: PERRLA ENT Exam: Positive: Mucous membr. moist/pink Neck Exam: Positive: Supple Chest Exam: Positive: Other (b/l decreased breath sounds, diffuse rhonchi) Heart Exam: Positive: Rate Normal Abdomen Exam: Positive: Normal bowel sounds Skin Exam: Positive: Nl turgor and temperature Neuro Exam: Positive: Normal Speech, Strength at 5/5 X4 ext Psych Exam: Positive: Mental status NL Assessment /Plan Assessment 63 y/o F was admitted for acute, metabolic encephalopathy s/p extubation. Labs and imaging studies reviewed Pt was seen and examined at bedside. Family members at bedside. Pt stated that she is feeling fine. c/o mild shortness of breath. 1. Acute respiratory failure was most probably secondary to COPD exacerbation resolved 2. COPD exacerbation improving will continue duonebs, will start on PO prednisone 3. incidental finding for ? right sided opacity of chest x ray o/p pulmonary f/u 4. metabolic encephalopathy/hepatic encephalopathy resolved. 5. H/o alcohol abuse supportive care 6. DVT PPX sq heparin Plan/VTE VTE Prophylaxis Ordered?: Yes VS, I&O, 24H, Fishbone Vital Signs/I&O Vital Signs Date Time Temp Pulse Resp B/P (MAP) Pulse Ox O2 Delivery O2 Flow Rate FiO2 02/27/19 18:00 104 17 97 Room Air 02/27/19 16:00 98.7 155/67 (96) 02/27/19 16:00 35 02/26/19 06:14 2.0 I&O- Last 24 Hours up to 6 AM 02/27/19 06:00 Intake Total 3474.0 ml Output Total 2900 ml Balance 574.0 ml Laboratory Data 24H LABS Laboratory Tests 2 02/27/19 05:02: Immature Granulocyte % (Auto) 0.6, Neutrophils (%) (Auto) 66.5H, Lymphocytes (%) (Auto) 25.8, Monocytes (%) (Auto) 6.7H, Eosinophils (%) (Auto) 0.3, Basophils (%) (Auto) 0.1, Neutrophils # (Auto) 7.0, Lymphocytes # (Auto) 2.7, Monocytes # (Auto) 0.7, Eosinophils # (Auto) 0.0, Basophils # (Auto) 0.0, Nucleated Red Blood Cells % (auto) 0.0, Anion Gap 8, Glomerular Filtration Rate > 60.0, Calcium Level 8.2L, Phosphorus Level 3.1, Magnesium Level 1.6L, Total Bilirubin 0.2, Aspartate Amino Transf (AST/SGOT) 18, Alanine Aminotransferase (ALT/SGPT) 14, Alkaline Phosphatase 82, Lactate Dehydrogenase 155, Total Creatine Kinase 312H, Total Protein 5.9L, Albumin 2.7#L, Albumin/Globulin Ratio 0.84L, Triglycerides Level 149, Cholesterol Level 156 02/27/19 05:41: Blood Gas Bicarbonate Standard 22.0, Arterial Blood pH 7.395, Arterial Blood Partial Pressure CO2 35.8, Arterial Blood Partial Pressure O2 100.1H, Arterial Blood Total CO2 22.5L, Arterial Blood HCO3 21.4L, Arterial Blood Base Excess - 3.0L, Arterial Blood Oxygen Saturation 97.6 CBC/BMP Laboratory Tests 02/27/19 05:02 Microbiology Microbiology 02/26/19 Blood Culture - Preliminary, Resulted No growth after 24 hours . All specim... STEPHANIA JAUREGUI MD Feb 27, 2019 19:07
[2019-02-28] MEDS ORDERED: MAG SULF 1GM/100ML (MAG RUN) 1 GM in IV 1 EA IV ONE (08:00)
--- NOTE | 2019-02-28 08:10 | REP ---
Portable chest x-ray: Single view. History: Intubation. Comparison study: February 27, 2019. Findings: The endotracheal tube has been withdrawn. There is plate-like atelectasis in the left base laterally. There is a linear opacity in the periphery of the right lung at the perihilar level. No new infiltrate is seen. Heart is not enlarged. There is diffuse osteopenia. Multiple old rib fractures are noted on the left. There is an old healed proximal humeral fracture on the right. The nasogastric tube is also withdrawn in the interval since yesterday's radiograph. Electronically Signed by Darien Jones MD 02/28/2019 08:02 A
[2019-02-28] MEDS: MAGNESIUM OXIDE 400 MG TAB (MAG-OX) PO SCH ×2 (08:37→20:18)
[2019-02-28] MEDS: predniSONE 20 MG TAB PO SCH (08:37)
[2019-02-28] MEDS: NICOTINE 21MG/24HR 1 EA TRANSDERMAL TD SCH (08:38)
--- NOTE | 2019-02-28 13:53 | IPNPDOC ---
Subjective Date Seen The patient was seen on 02/28/19. Subjective Chief Complaint/HPI unresponsive Objective Physical Examination General Exam: Positive: Cooperative, No Acute Distress Eye Exam: Positive: PERRLA ENT Exam: Positive: Mucous membr. moist/pink Neck Exam: Positive: Supple Chest Exam: Positive: Other (b/l decreased breath sounds) Heart Exam: Positive: Rate Normal Abdomen Exam: Positive: Normal bowel sounds Skin Exam: Positive: Nl turgor and temperature Neuro Exam: Positive: Normal Speech, Strength at 5/5 X4 ext Psych Exam: Positive: Mental status NL Assessment /Plan Assessment 63 y/o F was admitted for acute, metabolic encephalopathy s/p extubation on 02/27/19. Labs and imaging studies reviewed Pt was seen and examined at bedside. Pt stated that she is feeling fine. c/o mild cough 1. Acute respiratory failure resolved was most probably secondary to COPD exacerbation 2. COPD exacerbation improving will continue duonebs, PO prednisone 3. incidental finding for ? right sided opacity of chest x ray o/p pulmonary f/u 4. metabolic encephalopathy/hepatic encephalopathy resolved. 5. H/o alcohol abuse supportive care 6. weakness pt c/o generalized weakness will f/u with PT 7. DVT PPX sq heparin Plan/VTE VTE Prophylaxis Ordered?: Yes VS, [facility] Sign[facility]/I&O Vital Signs Date Time Temp Pulse Resp B/P (MAP) Pulse Ox O2 Delivery O2 Flow Rate FiO2 02/28/19 08:00 98.3 96 17 131/73 (92) 96 Room Air 02/27/19 16:00 35 02/26/19 06:14 2.0 I&O- Last 24 Hours up to 6 AM 02/28/19 06:00 Intake Total 3615 ml Output Total 810 ml Balance 2805 ml Laboratory Data 24H LABS Laboratory Tests 2 02/28/19 04:53: Immature Granulocyte % (Auto) 0.6, Neutrophils (%) (Auto) 64.5, Lymphocytes (%) (Auto) 27.7, Monocytes (%) (Auto) 5.4H, Eosinophils (%) (Auto) 1.3, Basophils (%) (Auto) 0.5, Neutrophils # (Auto) 7.2, Lymphocytes # (Auto) 3.1, Monocytes # (Auto) 0.6, Eosinophils # (Auto) 0.1, Basophils # (Auto) 0.1, Nucleated Red Blood Cells % (auto) 0.0, Anion Gap 9, Glomerular Filtration Rate > 60.0, Calcium Level 8.1L, Phosphorus Level 2.9, Magnesium Level 1.3L, Total Bilirubin 0.6#, Aspartate Amino Transf (AST/SGOT) 20, Alanine Aminotransferase (ALT/SGPT) 15, Alkaline Phosphatase 88, Lactate Dehydrogenase 176, Total Creatine Kinase 229H, Total Protein 5.7L, Albumin 2.8L, Albumin/Globulin Ratio 0.97L, Triglycerides Level 74, Cholesterol Level 160 CBC/BMP Laboratory Tests 02/28/19 04:53 Microbiology Microbiology 02/26/19 Blood Culture - Preliminary, Resulted No Growth after 48 hours. All Specime... STEPHANIA JAUREGUI MD Feb 28, 2019 13:43
[2019-02-28] MEDS: ESCITALOPRAM OXALATE 10 MG TAB (LEXAPRO) PO SCH (20:17)
[2019-02-28] MEDS ORDERED: AMITRIPTYLINE 50 MG TAB PO SCH (21:00)
[2019-03-01] MEDS: ACETAMINOPHEN TAB 650MG DOSE (2X325MG) PO PRN (01:39)
[2019-03-01 06:00] VITALS: BP 126/58
[2019-03-01] MEDS: PANTOPRAZOLE 40MG INJ (PROTONIX) (C9113) IV SCH (06:17)
[2019-03-01 06:18] VITALS: BP 122/53
[2019-03-01 07:19] LABS: BASO # 0.1 10^3/uL (0.0-0.2); BASO % 0.5 % (0.0-1.0); EOS # 0.1 10^3/uL (0.0-0.5); EOS % 1.2 % (0.0-3.0); HEMATOCRIT 31.4 % (36.0-47.0); HEMOGLOBIN 10.6 g/dl (12.0-15.5); LYMPH # 3.2 10^3/uL (1.5-5.0); LYMPH % 31.6 % (24.0-44.0); MEAN CORPUSCULAR HEMOGLOBIN 32.3 pg (27.0-33.0); MEAN CORPUSCULAR HGB CONC 33.8 g/dl (32.0-36.5); MEAN CORPUSCULAR VOLUME 95.7 fl (80.0-96.0); MONO # 0.6 10^3/uL (0.0-0.8); MONO % 6.2 % (0.0-5.0); NEUTROPHILS # 6.2 10^3/uL (1.5-8.5); PLATELET COUNT, AUTOMATED 309 10^3/uL (150-450); RED BLOOD COUNT 3.28 10^6/uL (4.00-5.40); WHITE BLOOD COUNT 10.2 10^3/uL (4.0-10.0)
[2019-03-01 07:49] LABS: BLOOD UREA NITROGEN 7 MG/DL (7-18); CARBON DIOXIDE LEVEL 28 MEQ/L (21-32); CHLORIDE LEVEL 102 MEQ/L (98-107); CREATININE FOR GFR 0.74 MG/DL (0.55-1.30); GLOMERULAR FILTRATION RATE > 60.0 (>45); GLUCOSE, FASTING 95 MG/DL (70-100); POTASSIUM SERUM 3.4 MEQ/L (3.5-5.1); SODIUM LEVEL 137 MEQ/L (136-145)
[2019-03-01 07:50] LABS: ALBUMIN 2.8 GM/DL (3.2-5.2); ALT/SGPT 20 U/L (12-78); BILIRUBIN,TOTAL 0.4 MG/DL (0.2-1.0); CALCIUM LEVEL 8.6 MG/DL (8.8-10.2); CHOLESTEROL LEVEL 190 MG/DL (< 200); CPK CREATINE PHOSPHOKINASE 631 U/L (26-192); LDH LACTATE DEHYDROGENASE 197 U/L (84-246); MAGNESIUM LEVEL 1.7 MG/DL (1.8-2.4); PHOSPHORUS LEVEL 3.2 MG/DL (2.5-4.9); TOTAL PROTEIN 6.4 GM/DL (6.4-8.2); TRIGLYCERIDES LEVEL 93 MG/DL (<150)
--- NOTE | 2019-03-01 08:24 | REP ---
Portable chest x-ray: Sitting AP view. History: Intubation. Comparison chest x-ray: February 28, 2019. There is no endotracheal tube visualized. There are clips in the left upper quadrant of the abdomen. There is linear plate-like atelectasis in the left base and right base medially. Vascular calcification is noted. There are mild linear fibrotic changes in the right upper lobe region. Heart is not enlarged. The lungs overall are hyperinflated. Impression: Hyperinflation. Bibasilar plate-like atelectasis. Electronically Signed by Darien Jones MD 03/01/2019 08:15 A
[2019-03-01] MEDS: MAGNESIUM OXIDE 400 MG TAB (MAG-OX) PO SCH (09:31)
[2019-03-01] MEDS: NICOTINE 21MG/24HR 1 EA TRANSDERMAL TD SCH (09:31)
[2019-03-01] MEDS: predniSONE 20 MG TAB PO SCH (09:31)
[2019-03-01] MEDS ORDERED: SYMB80INH INH (11:23)
[2019-03-01] MEDS ORDERED: ALBU8.5H IH (11:24)
[2019-03-01] MEDS ORDERED: THIA100TA PO (11:25)
[2019-03-01] MEDS ORDERED: MAG400TA PO (11:25)
[2019-03-01] MEDS ORDERED: FOLI400T PO (11:26)
[2019-03-01] MEDS ORDERED: MULTCAP PO (11:26)
--- NOTE | 2019-03-01 12:08 | DS.PDOC ---
Discharge Summary General Date of Admission Feb 26, 2019 at 05:58 Date of Discharge 03/01/19 Discharge Summary ADMITTING DIAGNOSES: Acute respiratory failure, metabolic encephalopathy DISCHARGE DIAGNOSES: Resolved episode of acute respiratory failure and metabolic encephalopathy/hepatic encephalopathy COMPLICATIONS/CHIEF COMPLAINT: Unresponsive HISTORY OF PRESENT ILLNESS: "63-year-old female with history of alcohol abuse who presents to the ED this evening via EMS as her awoke suddenly at 3 AM and heard her moaning and thrashing about in her room. He reports that she was last known well last night prior to going to sleep around 10 PM. She reportedly drank 2-3 beers as she does on most nights. To his knowledge, she did not ingest any other substances. She has not had any recent illnesses including any fevers, chills, nausea, vomiting or diarrhea. She has been in her normal state of health prior to this episode. She has no history of seizures. In the ED, she was found to be unresponsive and agitated, requiring several doses of Versed. She is using accessory muscles of respiration and was sedated. Therefore, the decision was made to intubate her in order to protect her airway. She will be admitted to the ICU at this time." HOSPITAL COURSE: 63 y/o F was admitted for acute respiratory failure and metabolic encephalopathy. Pt was intubated in ER. Pt was extubated successfully. Over the course of treatment pt's clinical condition improved. Most probably this episode of acute respiratory failure was related to COPD exacerbation. During hospital stay pt was also evaluated by PT and was found stable to be discharged home. Pt was seen and examined at bedside on day of discharge. Pt stated that she is feeling fine and did not have any complaint. Pt was clinically and vitally stable at the time of discharge. Pt was instructed to f/u PMD, pulmonary service and GI service after discharge. Pt was also started on medication for COPD. PHYSICAL EXAMINATION ON DISCHARGE: VITAL SIGNS: Please see below. GENERAL: comfortable, not in acute distress. HEENT: oral mucosa moist CARDIOVASCULAR EXAMINATION: regular, rate and rhythm RESPIRATORY EXAMINATION: b/l decreased breath sounds, no wheezing/rhonchi ABDOMINAL EXAMINATION: soft, non tender EXTREMITIES: no edema NEUROLOGICAL EXAMINATION: NO focal deficit I spent 32 minutes of time in coordinating discharge of this patient Vital Signs/I&Os Vital Signs Date Time Temp Pulse Resp B/P (MAP) Pulse Ox O2 Delivery O2 Flow Rate FiO2 03/01/19 06:18 97.9 88 18 122/53 (76) 97 Room Air 02/27/19 16:00 35 02/26/19 06:14 2.0 I&O- Last 24 Hours up to 6 AM 03/01/19 06:00 Intake Total 1420 ml Balance 1420 ml Laboratory Data Labs 24H Laboratory Tests 2 03/01/19 06:53: Immature Granulocyte % (Auto) 0.5, Neutrophils (%) (Auto) 60.0, Lymphocytes (%) (Auto) 31.6, Monocytes (%) (Auto) 6.2H, Eosinophils (%) (Auto) 1.2, Basophils (%) (Auto) 0.5, Neutrophils # (Auto) 6.2, Lymphocytes # (Auto) 3.2, Monocytes # (Auto) 0.6, Eosinophils # (Auto) 0.1, Basophils # (Auto) 0.1, Nucleated Red Blood Cells % (auto) 0.0, Anion Gap 7L, Glomerular Filtration Rate > 60.0, Calcium Level 8.6L, Phosphorus Level 3.2, Magnesium Level 1.7L, Total Bilirubin 0.4, Aspartate Amino Transf (AST/SGOT) 30, Alanine Aminotransferase (ALT/SGPT) 20, Alkaline Phosphatase 99, Lactate Dehydrogenase 197, Total Creatine Kinase 631#H, Total Protein 6.4, Albumin 2.8L, Albumin/Globulin Ratio 0.78L, Triglycerides Level 93, Cholesterol Level 190 CBC/BMP Laboratory Tests 03/01/19 06:53 Microbiology Microbiology 02/26/19 Blood Culture - Preliminary, Resulted No Growth after 72 hours. All specime... Discharge Medications Scheduled Amitriptyline HCl (Amitriptyline HCl) 50 Mg Tablet, 50 MG PO QHS, (Reported) Budesonide/Formoterol (Symbicort 80-4.5 Mcg Inhaler) 6.9 Gm Hfa.aer.ad, 2 PUFF INH BID Escitalopram Oxalate (Escitalopram Oxalate) 20 Mg Tablet, 20 MG PO DAILY, (Reported) Folic Acid (Folic Acid) 0.4 Mg Tablet, 400 MCG PO DAILY Magnesium Oxide (Magnesium Oxide) 400 Mg Tablet, 400 MG PO BID Multivitamin (Multivitamins) 1 Each Capsule, 1 CAP PO DAILY Thiamine Hcl (Vitamin B-1) 100 Mg Tablet, 1 TAB PO DAILY Scheduled PRN Albuterol Sulfate (Albuterol Sulfate Hfa) 8.5 Gm Hfa.aer.ad, 8.5 GM IH Q4HP PRN for WHEEZING Diphenoxylate HCl/Atropine (Lomotil 2.5-0.025 mg Tablet) 1 Each Tablet, 1 TAB PO DAILY PRN for DIARRHEA, (Reported) Allergies Coded Allergies: No Known Allergies (Verified Allergy, Unknown, 02/26/19) STEPHANIA JAUREGUI MD Mar 01, 2019 12:08
== END 2019-03-01 12:30 | disposition home or self-care (01) | DRG 52 ==
LOC: M ED 03:44 → M ED INP 05:58 → M ICU 08:13 → M MS4PR 02-28 11:48
PROVIDERS: ADMIT Internal Medicine; ATTEND Internal Medicine
DX: G93.41 Metabolic encephalopathy (principal); K72.00 Acute and subacute hepatic failure without coma; J96.01 Acute respiratory failure with hypoxia; J96.02 Acute respiratory failure with hypercapnia; E87.5 Hyperkalemia; J44.1 Chronic obstructive pulmonary disease with (acute) exacerbation; F10.20 Alcohol dependence, uncomplicated; Z79.899 Other long term (current) drug therapy; F41.9 Anxiety disorder, unspecified; F32.9 Major depressive disorder, single episode, unspecified; R29.6 Repeated falls; F17.200 Nicotine dependence, unspecified, uncomplicated; F12.90 Cannabis use, unspecified, uncomplicated; D64.9 Anemia, unspecified; E51.9 Thiamine deficiency, unspecified; Z85.038 Personal history of other malignant neoplasm of large intestine

== ENCOUNTER → 2019-04-17 | Outpatient (CLI) | payer OTHER ==
[~2019-04-17] MED LIST changes: +ALBU8.5H IH; +AMIT50TA PO; +ESCI20TA PO; +FOLI400T PO; +MAG400TA PO; +MULTCAP PO; +SYMB80INH INH; +THIA100TA PO
[2019-04-17 15:31] LABS: HEMATOCRIT 31.2 % (36.0-47.0); HEMOGLOBIN 10.7 g/dl (12.0-15.5); MEAN CORPUSCULAR HEMOGLOBIN 31.5 pg (27.0-33.0); MEAN CORPUSCULAR HGB CONC 34.3 g/dl (32.0-36.5); MEAN CORPUSCULAR VOLUME 91.8 fl (80.0-96.0); PLATELET COUNT, AUTOMATED 470 10^3/uL (150-450); WHITE BLOOD COUNT 5.7 10^3/uL (4.0-10.0)
[2019-04-17 15:41] LABS: ALBUMIN 3.6 GM/DL (3.2-5.2); ALT/SGPT 18 U/L (12-78); BILIRUBIN,TOTAL 0.4 MG/DL (0.2-1.0); BLOOD UREA NITROGEN 9 MG/DL (7-18); CALCIUM LEVEL 9.2 MG/DL (8.8-10.2); CARBON DIOXIDE LEVEL 27 MEQ/L (21-32); CHLORIDE LEVEL 96 MEQ/L (98-107); CREATININE FOR GFR 0.75 MG/DL (0.55-1.30); GLOMERULAR FILTRATION RATE > 60.0 (>45); GLUCOSE, FASTING 91 MG/DL (70-100); POTASSIUM SERUM 4.4 MEQ/L (3.5-5.1); SODIUM LEVEL 132 MEQ/L (136-145)
== END ==
LOC: M WUC 13:55
PROVIDERS: ATTEND Internal Medicine
DX: G93.41 Metabolic encephalopathy (principal)

== ENCOUNTER → 2020-03-07 | Outpatient (REF) | payer OTHER | LOC: M LAB REF 19:38 | PROVIDERS: ATTEND Internal Medicine | DX: R19.7 Diarrhea, unspecified (principal) ==

== ENCOUNTER → 2020-04-23 | Outpatient (CLI) | payer OTHER ==
[~2020-04-23] MED LIST changes: +HYDR-3363
== END ==
LOC: M LABSMTC 11:00
PROVIDERS: ATTEND Anesthesiology
DX: Z01.812 Encounter for preprocedural laboratory examination (principal); Z20.822 Contact with and (suspected) exposure to COVID-19

== ENCOUNTER 2020-04-28 11:16 | Day surgery (SDC) | payer BC, OTHER ==
[~2020-04-28] VITALS: Ht 157.5 cm; Wt 51.3 kg
[~2020-04-28 11:16] MED LIST changes: -AMIT25TA PO; +AMIT25TA17 PO; +ESCI10TA16 PO; -ESCI10TA2 PO; -ESCI20TA; -ESCI20TA PO; +ESCI20TA16; +ESCI20TA16 PO; +LIDOCAINE 2% 100MG/5ML SDV (FOR ANES.) As Ordered ONE; +NS 1,000 ML IV ONE; +propofoL 200 MG/20 ML VIAL As Ordered ONE
--- OUTSIDE RECORDS SUMMARY | 2020-04-28 11:22 | CCD | Continuity of Care Document ---
Author Author Indira NG Organization Unknown Address [address] [place] [address] Phone [phone] Problems Active Problems Provider Date Major depressive disorder Aaron Ng M.D. Onset: 11/2018 Social History Type Date Description Comments Sex Unknown ETOH Use Drinks Beer Tobacco Use Start: Unknown Patient is a current smoker, smo kes every day Cigarettes and Pipe Recreational Drug Use Regularly uses Marijuana Allergies, Adverse Reactions, Alerts Description No Known Drug Allergies Medications Active Medications SIG Qnty Indications Ordering Provide r Date Cholestyramine 4gm Packet mix 1 packet with liquids twice a day 60units Aaron Ng M.D. 03/18/2020 Amitriptyline HCL 50mg Tablets take one tablet by mouth at bedtime 90tabs Aaron Ng M. D. 10/12/2019 Escitalopram Oxalate 20mg Tablets 1 by mouth every day (See PCP For Refills) 90tabs Aaron Ng M.D. 07/21/2018 Hydroxyzine HCL 25mg Tablets 1-2 by mouth every 6 hours as needed for anxiety 180tabs Daren Ng M.D. 07/21/2018 History Medications Lomotil 2.5-0.025mg Tablets one by mouth daily as needed diarrhea [id number] 30tabs Daren Ng M.D. 03/04/2020 - 03/18/2020 Medications Administered in Office Medication SIG Qnty Indications Ordering Provider Date Injection (SC)/(Im) Injection Aaron Ng M.D. 09/26/2018 Immunizations CPT Code Status Date Vaccine Lot # [id number] Given 02/20/2019 Influenza Virus Vaccine, Quadrivalent, Slit Virus, Im Use 3Y & Up [id number] Vital Signs Date Vital Result Comment 03/18/2020 2:32pm BP Systolic 110 mmHg BP Diastolic 70 mmHg Body Temperature 97.3 F Heart Rate 104 /min Respiratory Rate 16 /min Height 62 inches 5'2" Weight 110.00 lb [place] Body Weight 110 lb BMI (Body Mass Index) 20.1 kg/m2 O2 % BldC Oximetry 97 % 03/04/2020 4:09pm BP Systolic 122 mmHg BP Diastolic 68 mmHg Body Temperature 97.6 F Heart Rate 108 /min Respiratory Rate 14 /min Height 62 inches 5'2" Weight 112.00 lb [place] Body Weight 110 lb BMI (Body Mass Index) 20.5 kg/m2 O2 % BldC Oximetry 96 % Results Test Acquired Date Facility Test Result H/L Range Note GI Profile Stool PCR So 03/07/2020 [facility] ([id number]) [phone] Campylobacter Not Detected 1 C.difficile A/B Not Detected 2 Plesiomonas shigelloides Not Detected 3 Salmonella Not Detected 4 Vibro Not Detected 5 Vibrio cholerae Not Detected 6 Yersinia enterocolitica Not Detected 7 Enteroaggregative Ecoli Not Detected 8 Entropathogenic Ecoli Not Detected 9 Enterotoxigenic Ecoli Not Detected 10 Shiga toxin producing Ecoli Not Detected 11 E coli 0157 Not Detected 12 Shigella Entroinvasive Ecoli Not Detected 13 Cryptosporidium Not Detected 14 Cyclospora cayetanensis Not Detected 15 Entamoeba histolytica Not Detected 16 Giardia lamblia Not Detected 17 Adenovirus F 40/41 Not Detected 18 Astrovirus Not Detected 19 Norovirus GI/Gii Not Detected 20 Rotavirus A Not Detected 21 Saprovirus Performed at: B <SEE NOTE> 22 Order 02/12/2020 [facility] [address] [place] [address] [phone] Hearing Evaluation <pending> CMP 11/13/2019 [facility]/Inhouse Glu 121 mg/dL High 70 - 110 BUN 17 mg/dL 8 - 23 Creat 0.8 mg/dL 0.5 - 1.0 BUN/Creatinine Ratio 20.4 Calc Na 138 mmol/L 136 - 145 K 4.8 mmol/L 3.5 - 5.1 CL 102.3 mmol/L 98.0 - 107.0 Co2 TNP mmol/L Abnormal 22.0 - 29.0 CA 9.2 mg/dL 8.6 - 10.2 TP 7.0 g/dL 6.6 - 8.7 Alb 4.5 g/dL 3.4 - 4.8 A/G Ratio 1.8 Calc Globulin 2.6 Calc Alp 120.8 U/L 35 - 129 Alt (SGPT) 9 U/L 0 - 41 Ast (Sgot) 17 U/L 0 - 40 Tbili 0.68 mg/dL 0.0 - 1.2 Osmolality-Calculated 279.2 Calc Anion Gap 23 mmol/L Comment TECH. DIFFICULTI <SEE NOTE> 23 eGFR 90 # Calc 24 eGFR Non-Afr. Turkmen 78 # Calc 25 CBC With Differential/Platelet 11/13/2019 [facility] N E WBC 6.8 x10E3/uL 3.4-10.8 RBC 4.41 x10E6/uL 3.77-5.28 Hemoglobin 13.3 g/dL 11.1-15.9 Hematocrit 40.3 % 34.0-46.6 MCV 91 fL 79-97 MCH 30.2 pg 26.6-33.0 MCHC 33.0 g/dL 31.5-35.7 RDW 13.1 % 11.7-15.4 Platelets 488 x10E3/uL High 150-450 Neutrophils 56 % Not Estab. Lymphs 32 % Not Estab. Monocytes 9 % Not Estab. Eos 1 % Not Estab. Basos 1 % Not Estab. Immature Cells TNP Neutrophils (Absolute) 3.8 x10E3/uL 1.4-7.0 Lymphs (Absolute) 2.2 x10E3/uL 0.7-3.1 Monocytes(Absolute) 0.6 x10E3/uL 0.1-0.9 Eos (Absolute) 0.1 x10E3/uL 0.0-0.4 Baso (Absolute) 0.1 x10E3/uL 0.0-0.2 Immature Granulocytes 1 % Not Estab. Immature Grans (Abs) 0.1 x10E3/uL 0.0-0.1 NRBC [place] [facility] Comments: TNP Laboratory test finding 11/13/2019 [facility] [place] Ammonia, Plasma 41 g/dL 34-178 26 1 2 3 4 5 6 7 8 9 10 11 12 13 14 15 16 17 18 19 20 21 22 Performed at: [facility] [id number] Sourcing Engineer: Zaki Gann MD, Phone: [phone] Not Detected 23 TECH. DIFFICULTIES 24 CKD-EPI 25 CKD-EPI 26 Please note reference inte rval change Procedures Description No Information Available Medical Devices Description No Information Available Encounters Type Date Location Provider Dx Diagnosis Office Visit 03/18/2020 2:30p [facility] Aaron Ng M. D. R19.7 Diarrhea, unspecified Office Visit 03/04/2020 3:40p [facility] Aaron Ng M. D. R19.7 Diarrhea, unspecified Office Visit 11/13/2019 1:45p [facility] Aaron Ng M. D. F33.0 Major depressive disorder, recurrent, mild M79.643 Pain in unspecified hand Office Visit 10/12/2019 2:30p [facility] Aaron Ng M. D. F33.0 Major depressive disorder, recurrent, mild F41.9 Anxiety disorder, unspecifie d Assessments Date Code Description Provider 03/18/2020 R19.7 Diarrhea, unspecified Aaron Ng M.D. 03/04/2020 R19.7 Diarrhea, unspecified Aaron Ng M.D. 11/13/2019 F33.0 Major depressive disorder, recur rent, mild Aaron Ng M.D. 11/13/2019 M79.643 Pain in unspecified hand Aaron Kulkarni M.D. 10/12/2019 F33.0 Major depressive disorder, recur rent, Aaron Whaley M.D. 10/12/2019 F41.9 Anxiety disorder, unspecified Mi Aaron ruiz M.D. Plan of Treatment Future Appointment(s):* 04/01/2020 3:40 pm - Aaron Ng M.D. at [facility] Functional Status Description No Information Available Mental Status Description No Information Available Referrals Refer to Reason for Referral Status Appt Date Robert. Christine Hess MD diarrhea- colonoscopy Sent [address] [address] [phone]
--- OUTSIDE RECORDS SUMMARY | 2020-04-28 11:22 | CCD | Continuity of Care Document ---
Author Author Indira NG Organization Unknown Address [address] [place] [address] Phone [phone] Problems Active Problems Provider Date Major depressive [...] one by mouth daily as needed diarrhea [id number] 30tabs Daren Ng M.D. 03/04/2020 - 03/18/2020 Medications Administered in Office Medication SIG Qnty Indications Ordering Provider Date Injection (SC)/(Im) Injection Aaron Ng M.D. 09/26/2018 Immunizations CPT Code Status Date Vaccine Lot # [id number] Given 02/20/2019 Influenza Virus Vaccine, Quadrivalent, Slit Virus, Im Use 3Y & Up [id number] Vital Signs Date Vital Result Comment 03/18/2020 2:32pm BP Systolic 110 mmHg BP Diastolic 70 mmHg Body Temperature 97.3 F Heart Rate 104 /min Respiratory Rate 16 /min Height 62 inches 5'2" Weight 110.00 lb [place] Body Weight 110 lb BMI (Body Mass Index) 20.1 kg/m2 O2 % BldC Oximetry 97 % 03/04/2020 4:09pm BP Systolic 122 mmHg BP Diastolic 68 mmHg Body Temperature 97.6 F Heart Rate 108 /min Respiratory Rate 14 /min Height 62 inches 5'2" Weight 112.00 lb [place] Body Weight 110 lb BMI (Body Mass Index) 20.5 kg/m2 O2 % BldC Oximetry 96 % Results Test Acquired Date Facility Test Result H/L Range Note Order 02/12/2020 [facility] [address] [id number] [phone] Hearing Evaluation <pending> CMP 11/13/2019 [facility]/Inhouse Glu [...] 23 mmol/L Comment TECH. DIFFICULTI <SEE NOTE> 1 eGFR 90 # Calc 2 eGFR Non-Afr. [place]onian 78 # Calc 3 CBC With Differential/Platelet 11/13/2019 [facility] N E [...] Immature Grans (Abs) 0.1 x10E3/uL 0.0-0.1 NRBC TNP Hematology Comments: TNP Laboratory test finding 11/13/2019 [facility] [place] Ammonia, Plasma 41 g/dL 34-178 4 1 TECH. DIFFICULTIES 2 CKD-EPI 3 CKD-EPI 4 Please note reference inte rval change Procedures Description No Information Available Medical Devices Description No Information Available Encounters Type Date Location Provider Dx Diagnosis Office Visit 03/18/2020 2:30p [facility] Aaron Ng M. D. R19.7 Diarrhea, unspecified Office Visit 03/04/2020 3:40p [facility] Aaron Ng M. D. R19.7 Diarrhea, unspecified Office Visit 11/13/2019 1:45p [facility] Aaron Ng M. D. F33.0 Major depressive disorder, recurrent, mild M79.643 Pain in unspecified hand Office Visit 10/12/2019 2:30p [facility] aAron Ng M. D. F33.0 Major depressive disorder, [...] 3:40 pm - Aaron Ng M.D. at [facility] Functional Status Description No Information Available Mental Status Description No Information Available Referrals Refer to Reason for Referral Status Appt Date Robert. Christine Hess MD diarrhea- colonoscopy Sent 826 [facility] [address] [place] [address] [phone]
--- OUTSIDE RECORDS SUMMARY | 2020-04-28 11:22 | CCD | Continuity of Care Document ---
Author Author Indira NG Organization Unknown Address [address] [place] [address] Phone [phone] Problems Active Problems Provider Date Major depressive [...] SIG Qnty Indications Ordering Provide r Date Lomotil 2.5-0.025mg Tablets one by mouth daily as needed diarrhea [id number] 30tabs Daren Ng M.D. 03/04/2020 Amitriptyline HCL 50mg Tablets take one tablet by mouth at bedtime 90tabs Aaron Ng M. D. 10/12/2019 Escitalopram Oxalate 20mg Tablets 1 by mouth every day (See PCP For Refills) 90tabs Aaron Ng M.D. 07/21/2018 Hydroxyzine HCL 25mg Tablets 1-2 by mouth every 6 hours as needed for anxiety 180tabs Daren Ng M.D. 07/21/2018 Medications Administered in Office Medication SIG Qnty Indications Ordering Provider Date Injection (SC)/(Im) Injection Aaron Ng M.D. 09/26/2018 Immunizations CPT Code Status Date Vaccine Lot # [id number] Given 02/20/2019 Influenza Virus Vaccine, Quadrivalent, Slit Virus, Im Use 3Y & Up [id number] Vital Signs Date Vital Result Comment 03/04/2020 4:09pm BP Systolic 122 mmHg BP Diastolic 68 mmHg Body Temperature 97.6 F Heart Rate 108 /min Respiratory Rate 14 /min Height 62 inches 5'2" Weight 112.00 lb [place] Body Weight 110 lb BMI (Body Mass Index) 20.5 kg/m2 O2 % BldC Oximetry 96 % 11/13/2019 1:43pm BP Systolic 134 mmHg BP Diastolic 80 mmHg Body Temperature 97.1 F Heart Rate 110 /min Respiratory Rate 14 /min Height 62 inches 5'2" Weight 114.00 lb [place] Body Weight 110 lb BMI (Body Mass Index) 20.8 kg/m2 O2 % BldC Oximetry 98 % Results Test Acquired Date Facility Test Result H/L Range Note Order 02/12/2020 [facility] [address] [place], [place] [id number] [phone] Hearing Evaluation <pending> CMP 11/13/2019 [facility]/Inhouse Glu [...] eGFR 90 # Calc 2 eGFR Non-Afr. [place] 78 # Calc 3 CBC With Differential/Platelet [...] Date Location Provider Dx Diagnosis Office Visit 03/04/2020 3:40p [facility] Araon Ng M. D. R19.7 Diarrhea, unspecified Office Visit 11/13/2019 1:45p [facility] Aaron Ng M. D. F33.0 Major depressive disorder, recurrent, mild M79.643 Pain in unspecified hand Office Visit 10/12/2019 2:30p [facility] Aaron Ng M. D. F33.0 Major depressive disorder, recurrent, mild F41.9 Anxiety disorder, unspecifie d Assessments Date Code Description Provider 03/04/2020 R19.7 Diarrhea, unspecified Aaron Ng M.D. 11/13/2019 F33.0 Major depressive disorder, recur rent, Aaron Whaley M.D. 11/13/2019 M79.643 Pain in unspecified hand Aaron Kulkarni M.D. 10/12/2019 F33.0 Major depressive disorder, recur rent, Aaron Whaley M.D. 10/12/2019 F41.9 Anxiety disorder, unspecified Mi Aaron ruiz M.D. Plan of Treatment Future Appointment(s):* 03/18/2020 2:30 pm - Aaron Ng M.D. at [facility] Functional Status Description No Information Available Mental Status Description No Information Available Referrals Description No Information Available
--- OUTSIDE RECORDS SUMMARY | 2020-04-28 11:22 | CCD | Continuity of Care Document ---
Author Author Indira NG Organization Unknown Address [address] [place] [address] Phone [phone] Problems Active Problems Provider Date Major depressive [...] one by mouth daily as needed diarrhea [id number] 30tabs Daren Ng M.D. 03/04/2020 - 03/18/2020 Medications Administered in Office Medication SIG Qnty Indications Ordering Provider Date Injection (SC)/(Im) Injection Aaron Ng M.D. 09/26/2018 Immunizations CPT Code Status Date Vaccine Lot # [id number] Given 02/20/2019 Influenza Virus Vaccine, Quadrivalent, Slit Virus, Im Use 3Y & Up [id number] Vital Signs Date Vital Result Comment 03/18/2020 2:32pm BP Systolic 110 mmHg BP Diastolic 70 mmHg Body Temperature 97.3 F Heart Rate 104 /min Respiratory Rate 16 /min Height 62 inches 5'2" Weight 110.00 lb [place] Body Weight 110 lb BMI (Body Mass Index) 20.1 kg/m2 O2 % BldC Oximetry 97 % 03/04/2020 4:09pm BP Systolic 122 mmHg BP Diastolic 68 mmHg Body Temperature 97.6 F Heart Rate 108 /min Respiratory Rate 14 /min Height 62 inches 5'2" Weight 112.00 lb [place] Body Weight 110 lb BMI (Body Mass Index) 20.5 kg/m2 O2 % BldC Oximetry 96 % Results Test Acquired Date Facility Test Result H/L Range Note Order 02/12/2020 [facility] [address] [id number] [phone] Hearing Evaluation <pending> CMP 11/13/2019 F[facility]/Inhouse Glu [...] eGFR 90 # Calc 2 eGFR Non-Afr. Brazilian 78 # Calc 3 CBC With Differential/Platelet [...] Provider Dx Diagnosis Office Visit 03/18/2020 2:30p [facility] Aaron Ng M. D. R19.7 Diarrhea, unspecified Office Visit 03/04/2020 3:40p [facility] Aaron Ng M. D. R19.7 Diarrhea, unspecified Office Visit 11/13/2019 1:45p [facility] Aaron Ng M. D. F33.0 Major depressive disorder, recurrent, mild M79.643 Pain in unspecified hand Office Visit 10/12/2019 2:30p [facility] Aaron Ng M. D. F33.0 Major depressive disorder, recurrent, mild F41.9 Anxiety disorder, unspecifie d Assessments Date Code Description Provider 03/18/2020 R19.7 Diarrhea, unspecified Aaron Ng M.D. 03/04/2020 R19.7 Diarrhea, unspecified Aaron Ng M.D. 11/13/2019 F33.0 Major depressive disorder, recur rent, mild Aaron Ng M.D. 11/13/2019 M79.643 Pain in unspecified hand Aaron Kulkarni M.D. 10/12/2019 F33.0 Major depressive disorder, recur renjaiden, Aaron Whaley M.D. 10/12/2019 F41.9 Anxiety disorder, unspecified Mi Aaron ruiz M.D. Plan of Treatment No Information Available Functional Status Description No Information Available Mental Status Description No Information Available Referrals Refer to Reason for Referral Status Appt Date Robert. Christine Hess MD diarrhea- colonoscopy Created [address] [address] [phone]
--- OUTSIDE RECORDS SUMMARY | 2020-04-28 11:22 | CCD | Continuity of Care Document ---
Author Author Indira NG Organization Unknown Address [address] [place] [address] Phone [phone] Problems Active Problems Provider Date Major depressive [...] one by mouth daily as needed diarrhea [id number] 30tabs Daren Ng M.D. 03/04/2020 Amitriptyline HCL [...] CPT Code Status Date Vaccine Lot # [id number] Given 02/20/2019 Influenza Virus Vaccine, Quadrivalent, Slit Virus, Im Use 3Y & Up [id number] Vital Signs Date Vital Result Comment 11/13/2019 1:43pm BP Systolic 134 mmHg BP Diastolic 80 mmHg Body Temperature 97.1 F Heart Rate 110 /min Respiratory Rate 14 /min Height 62 inches 5'2" Weight 114.00 lb [place] Body Weight 110 lb BMI (Body Mass Index) 20.8 kg/m2 O2 % BldC Oximetry 98 % 10/12/2019 2:27pm BP Systolic 124 mmHg BP Diastolic 76 mmHg Body Temperature 97.1 F Heart Rate 126 /min Respiratory Rate 18 /min Height 62 inches 5'2" Weight 115.00 lb [place] Body Weight 110 lb BMI (Body Mass Index) 21.0 kg/m2 O2 % BldC Oximetry 95 % Results Test Acquired Date Facility Test Result H/L Range Note Order 02/12/2020 [facility] [address] [place], [place] [id number] [phone] Hearing Evaluation <pending> CMP 11/13/2019 [facility]/Inhouse Glu [...] eGFR 90 # Calc 2 eGFR Non-Afr. Estonian 78 # Calc 3 CBC With Differential/Platelet [...] Provider Dx Diagnosis Office Visit 03/04/2020 3:40p [facility] Aaron Ng M. D. R19.7 Diarrhea, unspecified Office Visit 11/13/2019 1:45p [facility] Aaron Ng M. D. F33.0 Major depressive disorder, recurrent, mild M79.643 Pain in unspecified hand Office Visit 10/12/2019 2:30p [facility] Aaron Ng M. D. F33.0 Major [...]
--- OUTSIDE RECORDS SUMMARY | 2020-04-28 11:22 | CCD ---
Continuity of Care Document (CCD) Created on: 03/28/2020 Indira Champion External Reference #: [id number] : [id number] Sex: Female Author Author Indira [facility] Organization Unknown Address [address] [facility], [address] [place] [address] Phone [phone] Care Team Providers Care Bee Tender Name Role Phone Zaynab Mahajan AUTM [phone] [facility] AUTM [phone] Aaron Ng M.D. AUTM [phone] Problems Active Problems Provider Date Otorrhea Patsy Maldonado DO Onset: 03/31/2012 Perforation of tympanic membrane Patsy Montes Page DO Onset: 03/31/2012 Conductive hearing loss Patsy Maldonado DO Onset: 2 History of malignant neoplasm of gastrointestinal tract Anup Hess M.D. Onset: 08/11/2014 Social History Type Date Description Comments Sex Unknown ETOH Use Denies alcohol use Tobacco Use Start: Unknown Smokes 1 Pack A Day Recreational Drug Use Regularly uses Marijuana Allergies, Adverse Reactions, Alerts Description No Known Drug Allergies Medications Active Medications SIG Qnty Indications Ordering Provide r Date Hydroxyzine HCL 25mg Tablets Take One To Two Tablets By Mouth Every 6 Hours as Needed For Anxiety Unknown Escitalopram Oxalate 20mg Tablets every day 90tabs Aaron Ng M.D. Trazodone HCL 100mg Tablets Take One Tablet By Mouth AT Bedtime Unknown Immunizations Description No Information Available Vital Signs Date Vital Result Comment 03/28/2020 11:11am BP Systolic 110 mmHg BP Diastolic 60 mmHg Height 63 inches 5'3" Weight 112.00 lb BMI (Body Mass Index) 19.8 kg/m2 [place] Body Weight 115 lb Weight 50.803 kg BSA (Body Surface Area) 1.51 m2 08/11/2014 8:48am BP Systolic 126 mmHg BP Diastolic 85 mmHg Heart Rate 114 /min Height 63 inches 5'3" Weight 112.50 lb BMI (Body Mass Index) 19.9 kg/m2 [place] Body Weight 115 lb Weight 51.030 kg BSA (Body Surface Area) 1.51 m2 Results Description No Information Available Procedures Description No Information Available Medical Devices Description No Information Available Encounters Description No Information Available Assessments Description No Information Available Plan of Treatment No Information Available Functional Status Description No Information Available Mental Status Description No Information Available Referrals Refer to Reason for Referral Status Appt Date Edison Hess M.D. DIARRHEA, SCHEDULE SCOPE. Scheduled 03/28/2020 [facility] [address] [place] [address] [phone]
--- OUTSIDE RECORDS SUMMARY | 2020-04-28 11:23 | CCD ---
Author Author [facility] Organization [facility] Address Unknown Phone Unavailable Care Team Providers Care Pelletizer Tender Name Role Phone Bernadine NGUYEN MD Unavailable Unavailable Bernadine NGUYEN MD Unavailable Unavailable Bernadine NGUYEN MD Unavailable Unavailable Bernadine NGUYEN MD Unavailable Unavailable Bernadine NGUYEN MD Unavailable Unavailable Bernadine NGUYEN MD Unavailable Unavailable Bernadine NGUYEN MD Unavailable Unavailable Bernadine NGUYEN MD Unavailable Unavailable Bernadine NGUYEN MD Unavailable Unavailable Bernadine NGUYEN MD Unavailable Unavailable Bernadine NGUYEN MD Unavailable Unavailable Bernadine NGUYEN MD Unavailable Unavailable Bernadine NGUYEN MD Unavailable Unavailable Bernadine NGUYEN MD Unavailable Unavailable Bernadine NGUYEN MD Unavailable Unavailable Bernadine NGUYEN MD Unavailable Unavailable Bernadine NGUYEN MD Unavailable Unavailable Bernadine NGUYEN MD Unavailable Unavailable Bernadine NGUYEN MD Unavailable Unavailable Bernadine NGUYEN MD Unavailable Unavailable Bernadine NGUYEN MD Unavailable Unavailable Bernadine NGUYEN MD Unavailable Unavailable Bernadine NGUYEN MD Unavailable Unavailable Bernadine NGUYEN MD Unavailable Unavailable Bernadine NGUYEN MD Unavailable Unavailable Bernadine NGUYEN MD Unavailable Unavailable Bernadine NGUYEN MD Unavailable Unavailable Bernadine NGUYEN MD Unavailable Unavailable Bernadine NGUYEN MD Unavailable Unavailable Bernadine NGUYEN MD Unavailable Unavailable Bernadine NGUYEN MD Unavailable Unavailable Bernadine NGUYEN MD Unavailable Unavailable Bernadine NGUYEN MD Unavailable Unavailable Bernadine NGUYEN MD Unavailable Unavailable Bernadine NGUYEN MD Unavailable Unavailable Bernadine NGUYEN MD Unavailable Unavailable Bernadine NGUYEN MD Unavailable Unavailable Bernadine NGUYEN MD Unavailable Unavailable Bernadine NGUYEN MD Unavailable Unavailable Bernadine NGUYEN MD Unavailable Unavailable Bernadine NGUYEN MD Unavailable Unavailable Bernadine NGUYEN MD Unavailable Unavailable Bernadine NGUYEN MD Unavailable Unavailable Bernadine NGUYEN MD Unavailable Unavailable Bernadine NGUYEN MD Unavailable Unavailable Bernadine NGUYEN MD Unavailable Unavailable Bernadine NGUYEN MD Unavailable Unavailable Bernadine NGUYEN MD Unavailable Unavailable Bernadine NGUYEN MD Unavailable Unavailable Bernadine NGUYEN MD Unavailable Unavailable Bernadine NGUYEN MD Unavailable Unavailable Bernadine NGUYEN MD Unavailable Unavailable Bernadine NGUYEN MD Unavailable Unavailable Bernadine NGUYEN MD Unavailable Unavailable Bernadine NGUYEN MD Unavailable Unavailable Bernadine NGUYEN MD Unavailable Unavailable Bernadine NGUYEN MD Unavailable Unavailable Bernadine NGUYEN MD Unavailable Unavailable Bernadine NGUYEN MD Unavailable Unavailable Bernadine NGUYEN MD Unavailable Unavailable Bernadine NGUYEN MD Unavailable Unavailable Bernadine NGUYEN MD Unavailable Unavailable Bernadine NGUYEN MD Unavailable Unavailable Bernadine NGUYEN MD Unavailable Unavailable Bernadine NGUYEN MD Unavailable Unavailable Bernadine NGUYEN MD Unavailable Unavailable Bernadine NGUYEN MD Unavailable Unavailable Bernadine NGUYEN MD Unavailable Unavailable Bernadine NGUYEN MD Unavailable Unavailable Bernadine NGUYEN MD Unavailable Unavailable Bernadine NGUYEN MD Unavailable Unavailable Bernadine NGUYEN MD Unavailable Unavailable Bernadine NGUYEN MD Unavailable Unavailable Bernadine NGUYEN MD Unavailable Unavailable Bernadine NGUYEN MD Unavailable Unavailable MCELHERAN, KENDAL PA Unavailable Unavailable MCELHERAN, KENDAL PA Unavailable Unavailable MCELHERAN, KENDAL PA Unavailable Unavailable MCELHERAN, KENDAL PA Unavailable Unavailable MCELHERAN, KENDAL PA Unavailable Unavailable MCELHERAN, KENDAL PA Unavailable Unavailable MCELHERAN, KENDAL PA Unavailable Unavailable MCELHERAN, KENDAL PA Unavailable Unavailable MCELHERAN, KENDAL PA Unavailable Unavailable MCELHERAN, KENDAL PA Unavailable Unavailable MCELHERAN, KENDAL PA Unavailable Unavailable MCELHERAN, KENDAL PA Unavailable Unavailable MCELHERAN, KENDAL PA Unavailable Unavailable MCELHERAN, KENDAL PA Unavailable Unavailable MCELHERAN, KENDAL PA Unavailable Unavailable MCELHERAN, KENDAL PA Unavailable Unavailable MCELHERAN, KENDAL PA Unavailable Unavailable MCELHERAN, KENDAL PA Unavailable Unavailable MCELHERAN, KENDAL PA Unavailable Unavailable MCELHERAN, KENDAL PA Unavailable Unavailable MCELHERAN, KENDAL PA Unavailable Unavailable MCELHERAN, KENDAL PA Unavailable Unavailable MCELHERAN, KENDAL PA Unavailable Unavailable MCELAN, KENDAL PA Unavailable Unavailable MCELAN, KENDAL PA Unavailable Unavailable MCELAN, KENDAL PA Unavailable Unavailable MCELAN, KENDAL PA Unavailable Unavailable MCELAN, KENDAL PA Unavailable Unavailable Bernadine NGUYEN MD Unavailable Unavailable Bernadine NGUYEN MD Unavailable Unavailable Bernadine NGUYEN MD Unavailable Unavailable Bernadine NGUYEN MD Unavailable Unavailable Bernadine NGUYEN MD Unavailable Unavailable Bernadine NGUYEN MD Unavailable Unavailable Bernadine NGUYEN MD Unavailable Unavailable Bernadine NGUYEN MD Unavailable Unavailable Bernadine NGUYEN MD Unavailable Unavailable Bernadine NGUYEN MD Unavailable Unavailable Bernadine NGUYEN MD Unavailable Unavailable Bernadine NGUYEN MD Unavailable Unavailable Bernadine NGUYEN MD Unavailable Unavailable Bernadine NGUYEN MD Unavailable Unavailable Bernadine NGUYEN MD Unavailable Unavailable Bernadine NGUYEN MD Unavailable Unavailable Bernadine NGUYEN MD Unavailable Unavailable Bernadine NGUYEN MD Unavailable Unavailable Bernadine NGUYEN MD Unavailable Unavailable Bernadine NGUYEN MD Unavailable Unavailable Bernadine NGUYEN MD Unavailable Unavailable Bernadine NGUYEN MD Unavailable Unavailable Bernadine NGUYEN MD Unavailable Unavailable Bernadine NGUYEN MD Unavailable Unavailable Bernadine NGUYEN MD Unavailable Unavailable Bernadine NGUYEN MD Unavailable Unavailable Bernadine NGUYEN MD Unavailable Unavailable Bernadine NGUYEN MD Unavailable Unavailable Bernadine NGUYEN MD Unavailable Unavailable Bernadine NGUYEN MD Unavailable Unavailable Bernadine NGUYEN MD Unavailable Unavailable Bernadine NGUYEN MD Unavailable Unavailable Bernadine NGUYEN MD Unavailable Unavailable Bernadine NGUYEN MD Unavailable Unavailable Bernadine NGUYEN MD Unavailable Unavailable Bernadine NGUYEN MD Unavailable Unavailable Bernadine NGUYEN MD Unavailable Unavailable Bernadine NGUYEN MD Unavailable Unavailable Bernadine NGUYEN MD Unavailable Unavailable Bernadine NGUYEN MD Unavailable Unavailable Bernadine NGUYEN MD Unavailable Unavailable Bernadine NGUYEN MD Unavailable Unavailable Bernadine NGUYEN MD Unavailable Unavailable Bernadine NGUYEN MD Unavailable Unavailable Bernadine NGUYEN MD Unavailable Unavailable Bernadine NGUYEN MD Unavailable Unavailable Bernadine NGUYEN MD Unavailable Unavailable Bernadine NGUYEN MD Unavailable Unavailable Bernadine NGUYEN MD Unavailable Unavailable Bernadine NGUYEN MD Unavailable Unavailable Bernadine NGUYEN MD Unavailable Unavailable Bernadine NGUYEN MD Unavailable Unavailable Bernadine NGUYEN MD Unavailable Unavailable Bernadine NGUYEN MD Unavailable Unavailable Bernadine NGUYEN MD Unavailable Unavailable Bernadine NGUYEN MD Unavailable Unavailable Bernadine NGUYEN MD Unavailable Unavailable Bernadine NGUYEN MD Unavailable Unavailable Bernadine NGUYEN MD Unavailable Unavailable Bernadine NGUYEN MD Unavailable Unavailable Bernadine NGUYEN MD Unavailable Unavailable Bernadine NGUYEN MD Unavailable Unavailable Bernadine NGUYEN MD Unavailable Unavailable Bernadine NGUYEN MD Unavailable Unavailable Bernadine NGUYEN MD Unavailable Unavailable Bernadine NGUYEN MD Unavailable Unavailable Bernadine NGUYEN MD Unavailable Unavailable Bernadine NGUYEN MD Unavailable Unavailable Bernadine NGUYEN MD Unavailable Unavailable Bernadine NGUYEN MD Unavailable Unavailable Bernadine NGUYEN MD Unavailable Unavailable Bernadine NGUYEN MD Unavailable Unavailable Bernadine NGUYEN MD Unavailable Unavailable Bernadine NGUYEN MD Unavailable Unavailable Bernadine NGUYEN MD Unavailable Unavailable Naomi Amor MD Unavailable Unavailable Naomi Amor MD Unavailable Unavailable Naomi Amor MD Unavailable Unavailable Naomi Amor MD Unavailable Unavailable Naomi Amor MD Unavailable Unavailable Naomi Amor MD Unavailable Unavailable Naomi Amor MD Unavailable Unavailable Fish, B Trey BATES Unavailable Unavailable Fish, B Trey BATES Unavailable Unavailable Fish, B Trey BATES Unavailable Unavailable Fish, B Trey BATES Unavailable Unavailable Fish, B Trey BATES Unavailable Unavailable Fish, B Trey BATES Unavailable Unavailable Fish, B Trey BATES Unavailable Unavailable Fish, B Trey BATES Unavailable Unavailable Fish, B Trey BATES Unavailable Unavailable Fish, B Trey BATES Unavailable Unavailable Fish, B Trey BATES Unavailable Unavailable Fish, B Trey BATES Unavailable Unavailable Fish, B Trey BATES Unavailable Unavailable Fish, B Trey BATES Unavailable Unavailable Fish, B Trey BATES Unavailable Unavailable Fish, B Trey BATES Unavailable Unavailable Fish, B Trey BATES Unavailable Unavailable Fish, B Trey BATES Unavailable Unavailable Fish, B Trey BATES Unavailable Unavailable Fish, B Trey BATES Unavailable Unavailable Fish, B Trey BATES Unavailable Unavailable Fish, B Trey BATES Unavailable Unavailable Fish, B Trey BATES Unavailable Unavailable Fish, B Trey BATES Unavailable Unavailable Fish, B Trey BATES Unavailable Unavailable Fish, B Trey BATES Unavailable Unavailable Fish, B Trey BATES Unavailable Unavailable Fish, B Trey BATES Unavailable Unavailable Fish, B Trey BATES Unavailable Unavailable Fish, B Trey BATES Unavailable Unavailable Fish, B Trey BATES Unavailable Unavailable Fish, B Trey BATES Unavailable Unavailable Fish, B Trey BATES Unavailable Unavailable Fish, B Trey BATES Unavailable Unavailable Fish, B Trey BATES Unavailable Unavailable Fish, B Trey BATES Unavailable Unavailable Fish, B Trey BATES Unavailable Unavailable Fish, B Trey BATES Unavailable Unavailable Fish, B Trey BATES Unavailable Unavailable Fish, B Trey BATES Unavailable Unavailable Fish, B Trey BATES Unavailable Unavailable Fish, B Trey BATES Unavailable Unavailable Fish, B Trey BATES Unavailable Unavailable Fish, B Trey BATES Unavailable Unavailable Fish, B Trey BATES Unavailable Unavailable Fish, B Trey BATES Unavailable Unavailable Nhan Escobedo MD Unavailable Unavailable Nhan Escobedo MD Unavailable Unavailable Nhan Escobedo MD Unavailable Unavailable Nhan Escobedo MD Unavailable Unavailable Nhan Escobedo MD Unavailable Unavailable Nhan Escobedo MD Unavailable Unavailable Nhan Escobedo MD Unavailable Unavailable Nhan Escobedo MD Unavailable Unavailable Nhan Escobedo MD Unavailable Unavailable Nhan Escobedo MD Unavailable Unavailable Nhan Escobedo MD Unavailable Unavailable Nhan Escobedo MD Unavailable Unavailable Nhan Escobedo MD Unavailable Unavailable GreggNhan MD Unavailable Unavailable GreggNhan momin MD Unavailable Unavailable GreggNhan MD Unavailable Unavailable GreggNhan MD Unavailable Unavailable GreggNhan MD Unavailable Unavailable GreggNhan MD Unavailable Unavailable GreggNhan MD Unavailable Unavailable GreggNhan MD Unavailable Unavailable GreggNhan MD Unavailable Unavailable GreggNhan mcwilliams MD Unavailable Unavailable GreggNhan MD Unavailable Unavailable GreggNhan MD Unavailable Unavailable GreggNhan MD Unavailable Unavailable GreggNhan momin MD Unavailable Unavailable GreggNhan MD Unavailable Unavailable GreggNhan MD Unavailable Unavailable GreggNhan MD Unavailable Unavailable GreggNhan mcwilliams MD Unavailable Unavailable GreggNhan MD Unavailable Unavailable Nhan Escobedo MD Unavailable Unavailable GreggNhan momin MD Unavailable Unavailable Nhan Escobedo MD Unavailable Unavailable Nhan Escobedo MD Unavailable Unavailable Nhan Escobedo MD Unavailable Unavailable Nhan Escobedo MD Unavailable Unavailable Nhan Escobedo MD Unavailable Unavailable Nhan Escobedo MD Unavailable Unavailable Nhan Escobedo MD Unavailable Unavailable Nhan Escobedo MD Unavailable Unavailable Nhan Escobedo MD Unavailable Unavailable Nhan Escobedo MD Unavailable Unavailable Nhan Escobedo MD Unavailable Unavailable Nhan Escobedo MD Unavailable Unavailable Nhan Escobedo MD Unavailable Unavailable Nhan Escobedo MD Unavailable Unavailable Nhan Escobedo MD Unavailable Unavailable Nhan Escobedo MD Unavailable Unavailable Nhan Escobedo MD Unavailable Unavailable Nhan Escobedo MD Unavailable Unavailable Nhan Escobedo MD Unavailable Unavailable Nhan Escobedo MD Unavailable Unavailable Nhan Escobedo MD Unavailable Unavailable Nhan Escobedo MD Unavailable Unavailable Nhan Escobedo MD Unavailable Unavailable Nhan Escobedo MD Unavailable Unavailable Nhan Escobedo MD Unavailable Unavailable Nhan Escobedo MD Unavailable Unavailable Nhan Escobedo MD Unavailable Unavailable Nhan Escobedo MD Unavailable Unavailable Nhan Escobedo MD Unavailable Unavailable Gregg, Nhan Cardenas MD Unavailable Unavailable Gregg, M Theresa BATES Unavailable Unavailable Gregg, M Theresa BATES Unavailable Unavailable Gregg, M Theresa BATES Unavailable Unavailable Gregg, M Theresa BATES Unavailable Unavailable Gregg, M Theresa BATES Unavailable Unavailable Gregg, M Theresa BATES Unavailable Unavailable Gregg, M Theresa BATES Unavailable Unavailable Gregg, M Theresa BATES Unavailable Unavailable Gregg, M Theresa BATES Unavailable Unavailable Gregg, M Theresa BATES Unavailable Unavailable Gregg, M Theresa BATES Unavailable Unavailable Gregg, M Theresa BATES Unavailable Unavailable Gregg, M Theresa BATES Unavailable Unavailable Gregg, M Theresa BATES Unavailable Unavailable JESSE HARTMAN MD Unavailable Unavailable JESSE HARTMAN MD Unavailable Unavailable JESSE HARTMAN MD Unavailable Unavailable JESSE HARTMAN MD Unavailable Unavailable JESSE HARTMAN MD Unavailable Unavailable JESSE HARTMAN MD Unavailable Unavailable JESSE HARTMAN MD Unavailable Unavailable JESSE HARTMAN MD Unavailable Unavailable JESSE HARTMAN MD Unavailable Unavailable JESSE HARTMAN MD Unavailable Unavailable JESSE HARTMAN MD Unavailable Unavailable JESSE HARTMAN MD Unavailable Unavailable JESSE HARTMAN MD Unavailable Unavailable JESSE HARTMAN MD Unavailable Unavailable JESSE HARTMAN MD Unavailable Unavailable JESSE HARTMAN MD Unavailable Unavailable JESSE HARTMAN MD Unavailable Unavailable JESSE HARTMAN MD Unavailable Unavailable JESSE HARTMAN MD Unavailable Unavailable JESSE HARTMAN MD Unavailable Unavailable JESSE HARTMAN MD Unavailable Unavailable JESSE HARTMAN MD Unavailable Unavailable JESSE HARTMAN MD Unavailable Unavailable JESSE HARTMAN MD Unavailable Unavailable JESSE HARTMAN MD Unavailable Unavailable JESSE HARTMAN MD Unavailable Unavailable JESSE HARTMAN MD Unavailable Unavailable JESSE HARTMAN MD Unavailable Unavailable JESSE HARTMAN MD Unavailable Unavailable JESSE HARTMAN MD Unavailable Unavailable JESSE HARTMAN MD Unavailable Unavailable JESSE HARTMAN MD Unavailable Unavailable JESSE HARTMAN MD Unavailable Unavailable Re-disclosure Warning The records that you are about to access may contain information from federally-assisted alcohol or drug abuse programs. If such information is present, then the following federally mandated warning applies: This information has been disclosed to you from records protected by federal confidentiality rules (42 CFR part 2). The federal rules prohibit you from making any further disclosure of this information unless further disclosure is expressly permitted by the written consent of the person to whom it pertains or as otherwise permitted by 42 CFR part 2. A general authorization for the release of medical or other information is NOT sufficient for this purpose. The Federal rules restrict any use of the information to criminally investigate or prosecute any alcohol or drug abuse patient.The records that you are about to access may contain highly sensitive health information, the redisclosure of which is protected by Article 27-F of the [facility] Public Health law. If you continue you may have access to information: Regarding HIV / AIDS; Provided by facilities licensed or operated by the [facility] Office of Mental Health; or Provided by the [facility] Office for People With Developmental Disabilities. If such information is present, then the following [facility] mandated warning applies: This information has been disclosed to you from confidential records which are protected by state law. State law prohibits you from making any further disclosure of this information without the specific written consent of the person to whom it pertains, or as otherwise permitted by law. Any unauthorized further disclosure in violation of state law may result in a fine or senior care sentence or both. A general authorization for the release of medical or other information is NOT sufficient authorization for further disc losure. Family History Family Member Name Family Member Gender Family Member Status Date o f Status Description Data Source(s) Unknown Unknown Problem [facility] ([facility] Unknown Male Problem [facility] ([facility] ) Unknown Unknown Problem [facility] ([facility]) Unknown Unknown Problem [facility] ([facility] Unknown Unknown Problem [facility] ([facility] Encounters Encounter Providers Location Date Indications Data Source(s ) Outpatient Attender: KLE[facility] Concepcion Office 07/2019 01:30:00 PM EST [facility] ([facility] Outpatient Attender: KLE[facility] Concepc[facility] Office 02:40:00 PM EST [facility] ([facility] Outpatient Attender: KLE[facility] Concepcion Office 01:45:00 PM EDT [facility] ([facility] Outpatient Attender: KLEBER Schulten Office 02:30:00 PM EDT MED[facility] ([facility] Outpatient Attender: Trey Amor MD Physical Therapy 05/29/2019 0 9:45:00 AM EST [facility] ([facility]) Outpatient Attender: KLEBER NGUYEN MD [place] [facility] 02:00:00 PM EST [facility] ([facility] Outpatient Referrer: JESSE HARTMAN MD 03/17/2019 09:19:0 0 PM EST [facility] Outpatient Referrer: JESSE HARTMAN MD 03/16/2019 06:30:0 0 AM EST [facility] Outpatient Attender: KENDAL MEDINA Physical Therapy 03/05/2019 02:30:00 PM EST [facility] ([facility]) Outpatient Attender: KLEBER DIALLO eferrer: KLEBER NGUYEN MDConsultant: Theresa Escobedo MD 02/20/2019 04:23:00 PM EST - 02/20/2019 04:33: 00 PM EST [facility] Patient discharged. Medications Medication Brand Name Start Date Product Form Dose Route Admi nistrative Instructions Pharmacy Instructions Status Indications Reaction Description Data Source(s) 17.5-3.13-1.6 gram 04/21/2020 12:00:00 AM EST [facility] USE DIRECTED BY PHYSICIAN USE DIRECTED BY PHYSICIAN SOLD: 04/26/2020 [facility] 25 mg 03/19/2020 12:00:00 AM EST tablet 180 TAKE ONE TO TWO TABLETS BY MOUTH EVERY 6 HOURS NEEDED FOR ANXIETY TAKE ONE TO TWO TABLETS BY MOUTH EVERY 6 HOURS NEEDED FOR ANXIETY SOLD: 03/19/2020 [facility] 4 gram 03/19/2020 12:00:00 AM EST powder in packet 60 MIX 1 PACKET WITH LIQUIDS TWO TIMES A DAY MIX 1 PACKET WITH LIQUIDS TWO TIMES A DAY SOLD: 03/19/2020 [facility] Cholestyramine Resin 66.7 MG/ML Oral Suspension Cholestyrami ne 03/18/2020 12:00:00 AM EST active M [facility]ENT ([facility] 2.5-0.025 mg 03/05/2020 12:00:00 AM EST tablet 30 ONE TABLET BY MOUTH NEEDED FOR DIARRHEA MAXIMUM DAILY DOSE = ONE TABLET ONE TABLET BY MOUTH NEEDED FOR DIARRHEA MAXIMUM DAILY DOSE = ONE TABLET SOLD: 03/06/2020 [facility] Atropine Sulfate 0.025 MG / Diphenoxylat e Hydrochloride 2.5 MG Oral Tablet [Lomotil] Lomotil 03/04/2020 12:00:00 AM EST ORAL compl eted MED[facility] ([facility] 50 mg 11/20/2019 12:00:00 AM EDT tablet 30 TAKE ONE TABLET BY MOUTH EVERY DAY AT BEDTIME TAKE ONE TABLET BY MOUTH EVERY DAY AT BEDTIME SOLD: 11/26/2019 [facility] 50 mg 10/12/2019 12:00:00 AM EDT tablet 30 TAKE ONE TABLET BY MOUTH AT BEDTIME TAKE ONE TABLET BY MOUTH AT BEDTIME SOLD: 10/12/2019 [facility] 25 mg 10/12/2019 12:00:00 AM EDT tablet 180 TAKE ONE TO TWO TABLETS BY MOUTH EVERY 6 HOURS NEEDED FOR ANXIETY TAKE ONE TO TWO TABLETS BY MOUTH EVERY 6 HOURS NEEDED FOR ANXIETY SOLD: 11/26/2019 [facility] Escitalopram 20 MG Oral Tablet ESCITALOPRAM OXALATE 10/12/2019 1 2:00:00 AM EDT tablet 30 TAKE ONE TABLET BY MOUTH EVERY D AY TAKE ONE TABLET BY MOUTH EVERY DAY SOLD: 11/26/2019 [facility] Amitriptyline Hydrochloride 50 MG Oral Tablet Amitriptyline HCL 10/12/2019 12:00:00 AM EDT ORAL active M [facility]ENT ([facility] 25 mg 10/12/2019 12:00:00 AM EDT tablet 180 TAKE ONE TO TWO TABLETS BY MOUTH EVERY 6 HOURS NEEDED FOR ANXIETY TAKE ONE TO TWO TABLETS BY MOUTH EVERY 6 HOURS NEEDED FOR ANXIETY SOLD: 10/12/2019 [facility] Escitalopram 20 MG Oral Tablet ESCITALOPRAM OXALATE 10/12/2019 1 2:00:00 AM EDT tablet 30 TAKE ONE TABLET BY MOUTH EVERY D AY TAKE ONE TABLET BY MOUTH EVERY DAY SOLD: 10/12/2019 [facility] Trazodone Hydrochloride 100 MG Oral Tablet Trazodone HCL 05/15/2019 12:00:00 AM EST ORAL completed [facility] ([facility] Trazodone Hydrochloride 100 MG Oral Tablet TRAZODONE HCL 05/15/2019 12:00:00 AM EST tablet 30 TAKE ONE TABLET BY MOUTH AT BEDTIME TAKE ONE TABLET BY MOUTH AT BEDTIME SOLD: 05/15/2019 [facility] Trazodone Hydrochloride 100 MG Oral Tablet TRAZODONE HCL 05/15/2019 12:00:00 AM EST tablet 30 TAKE ONE TABLET BY MOUTH AT BEDTIME TAKE ONE TABLET BY MOUTH AT BEDTIME SOLD: 07/13/2019 [facility] 100 mg 04/11/2019 12:00:00 AM EST tablet 30 TAKE ONE TABLET BY MOUTH AT BEDTIME TAKE ONE TABLET BY MOUTH AT BEDTIME SOLD: 05/04/2019 [facility] Escitalopram 20 MG Oral Tablet ESCITALOPRAM OXALATE 04/10/2019 1 2:00:00 AM EST tablet 30 TAKE ONE TABLET BY MOUTH EVERY D AY TAKE ONE TABLET BY MOUTH EVERY DAY SOLD: 04/11/2019 [facility] 25 mg 03/26/2019 12:00:00 AM EST tablet 60 TAKE ONE TO TWO TABLETS BY MOUTH AT BEDTIME TAKE ONE TO TWO TABLETS BY MOUTH AT BEDTIME SOLD: 03/27/2019 [facility] 50 mg 03/26/2019 12:00:00 AM EST tablet 30 TAKE ONE TABLET BY MOUTH AT BEDTIME TAKE ONE TABLET BY MOUTH AT BEDTIME SOLD: 03/27/2019 [facility] 2.5-0.025 mg 03/20/2019 12:00:00 AM EST tablet 30 TAKE ONE TABLET BY MOUTH DIRECTED FOR DIARRHEA TAKE ONE TABLET BY MOUTH DIRECTED FOR DIARRHEA SOLD : 03/22/2019 [facility] 400 mcg 03/01/2019 12:00:00 AM EST tablet 30 TAKE ONE TABLET BY MOUTH EVERY DAY TAKE ONE TABLET BY MOUTH EVERY DAY SOLD: 03/01/2019 [facility] 90 mcg/actuation 03/01/2019 12:00:00 AM EST HFA aerosol inha ler 8 INHALE ONE TO TWO PUFFS BY MOUTH EVERY 4 HOURS NEEDED FOR WHEEZING INHALE ONE TO TWO PUFFS BY MOUTH EVERY 4 HOURS NEEDED FOR WHEEZING SOLD: 03/01/2019 [facility] 100 mg 03/01/2019 12:00:00 AM EST tablet 30 TAKE ONE TABLET BY MOUTH EVERY DAY TAKE ONE TABLET BY MOUTH EVERY DAY SOLD: 03/01/2019 [facility] 400 mg (241.3 mg magnesium) 03/01/2019 12:00:00 AM EST table t 60 TAKE ONE TABLET BY MOUTH TWICE A DAY TAKE ONE TABLET BY MOUTH TWICE A DAY SOLD: 03/01/2019 [facility] MULTIVITAMIN 03/01/2019 12:00:00 AM EST tablet 30 TAKE ONE TABLET BY MOUTH EVERY DAY TAKE ONE TABLET BY MOUTH EVERY DAY SOLD: 03/01/2019 [facility] Escitalopram 20 MG Oral Tablet ESCITALOPRAM OXALATE 11/14/2018 1 2:00:00 AM EDT tablet 30 TAKE ONE TABLET BY MOUTH EVERY D AY TAKE ONE TABLET BY MOUTH EVERY DAY SOLD: 03/19/2019 [facility] Insurance Providers Payer name Policy type / Coverage type Policy ID Covered democrat ID Covered democrat's relationship to mendez Policy Mendez Plan Information [facility] [employer] PROGRAM [id number] [facility] [id number] [facility] [id number] [facility] [id number] [facility] [id number] SP 82 [id number] [facility] O [id number] S 82 [id number] [facility] HEALTH INSURANCE COMPANY-O/P [id number] 01 [id number] [facility] Commercial [id number] Family Dependent [id number] [facility] H [id number] Self [id number] [facility] Health Care Commercial [id number] Family Dependent [id number] Bso ZFC,Yot,Yoy,ZFH,ZFP Medigap Part B [id number] Family Dependent [id number] [facility] (pr) Commercial [id number] Self [id number] [facility] Health Care Commercial [id number] Family Dependent [id number] Bshmo ZFC,Yot,Yoy,ZFH,ZFP Medigap Part B [id number] Family Dependent [id number] [facility] I [id number] Self [id number] [facility] Health Care Commercial [id number] Family Dependent [id number] Bshmo ZFC,Yot,Yoy,ZFH,ZFP Medigap Part B [id number] Family Dependent [id number] Bshmo ZFC,Yot,Yoy,ZFH,ZFP Medigap Part B [id number] Family Dependent [id number] Bso ZFC,Yot,Yoy,ZFH,ZFP Medigap Part B [id number] Family Dependent [id number] Bshmo ZFC,Yot,Yoy,ZFH,ZFP Medigap Part B [id number] Family Dependent [id number] [facility] Health Care Commercial [id number] 8 [id number] Bshmo ZFC,Yot,Yoy,ZFH,ZFP Medigap Part B [id number] Family Dependent [id number] [facility] Health Care Commercial [id number] [facility] Health [facility] Health Maintenance Organization (HMO) [id number] Self [id number] [facility] Health Care Commercial [facility] PHY [id number] SP [id number] [facility] [id number] SP [id number] [facility] P [id number] S 82 [id number] Surgeries/Procedures Procedure Description Date Indications Data Source(s) RADIOLOGIC EXAM KNEE COMPLETE 4/MORE VIEWS 05/29/2019 12:00:00 AM EST [facility] ([facility]) RADEX SPINE LUMBOSACRAL 2/3 VIEWS 03/05/2019 12:00:00 AM EST [facility] ([facility]) Results ID Date Data Source [id number] 04/23/2020 10:30:00 AM EST [facility] Name Value Range Interpretation Code Description Data Deja rce(s) Supporting Document(s) SARS coronavirus 2 RNA Not Detected [facility] This lab was ordered by [facility] and reported by [facility]. ID Date Data Source [id number] 03/07/2020 03:00:00 PM EST [facility] ([facility] Name Value Range Interpretation Code Description Data Deja rce(s) Supporting Document(s) Campylobacter Laboratory test result [facility] ([facility] Laboratory test finding (navigational concept) Laboratory test result [facility] ([facility] Laboratory test finding (navigational concept) Laboratory test result [facility] ([facility] Laboratory test finding (navigational concept) Laboratory test result [facility] ([facility] Salmonella Laboratory test result ME DENT ([facility] Laboratory test finding (navigational concept) Laboratory test result [facility] ([facility] Laboratory test finding (navigational concept) Laboratory test result [facility] ([facility] Laboratory test finding (navigational concept) Laboratory test result [facility] ([facility] Laboratory test finding (navigational concept) Laboratory test result [facility] ([facility] Laboratory test finding (navigational concept) Laboratory test result [facility] ([facility] Laboratory test finding (navigational concept) Laboratory test result [facility] ([facility] Laboratory test finding (navigational concept) Laboratory test result [facility] ([facility] Laboratory test finding (navigational concept) Laboratory test result [facility] ([facility] Laboratory test finding (navigational concept) Laboratory test result [facility] ([facility] Cryptosporidium Laboratory test result [facility] ([facility] Giardia lamblia Laboratory test result [facility] ([facility] Entamoeba histolytica Laboratory test result [facility] ([facility] Laboratory test finding (navigational concept) Laboratory test result [facility] ([facility] Astrovirus Laboratory test result ME DENT ([facility] Laboratory test finding (navigational concept) Laboratory test result [facility] ([facility] Rotavirus A Laboratory test result M EDENT ([facility] Saprovirus Laboratory test result ME DENT ([facility] Performed at: [address] [id number] [employer]ating Machine Operator: Zaki Gann MD, Phone: [phone] Not Detected ID Date Data Source [id number] 02/12/2020 10:24:00 AM EDT [facility] ([facility] Name Value Range Interpretation Code Description Data Deja rce(s) Supporting Document(s) Hearing Evaluation Laboratory test result [facility] ([facility] ID Date Data Source [id number] 11/13/2019 01:59:00 PM EDT [facility] ([facility] Name Value Range Interpretation Code Description Data Deja rce(s) Supporting Document(s) Creat 0.8 mg/dL 0.5-1.0 [facility] ([facility] BUN 17 mg/dL 8-23 [facility] ([facility] Glu 121 mg/dL 70-110 Above high normal [facility] ([facility] K 4.8 mmol/L 3.5-5.1 [facility] ([facility] Na 138 mmol/L 136-145 [facility] ([facility] BUN/Creatinine Ratio 20.4 Calc [facility] ([facility] Co2 Laboratory test result 22.0-29.0 Abnormal (applies to non-numeric results) [facility] ([facility] CA 9.2 mg/dL 8.6-10.2 [facility] ([facility] CL 102.3 mmol/L 98.0-107.0 [facility] ([facility] TP 7.0 g/dL 6.6-8.7 [facility] ([facility] A/G Ratio 1.8 Calc [facility] ([facility] Alb 4.5 g/dL 3.4-4.8 [facility] ([facility] Alp 120.8 U/L 35-129 [facility] ([facility] Globulin 2.6 Calc [facility] ([facility] Alt (SGPT) 9 U/L 0-41 [facility] Osmolality-Calculated 279.2 Calc MED ENT ([facility] Tbili 0.68 mg/dL 0.0-1.2 [facility] ([facility] Ast (Sgot) 17 U/L 0-40 [facility] Anion Gap 23 mmol/L [facility] Comment Laboratory test result [facility] ([facility] TECH. DIFFICULTIES eGFR 90 # [facility] ( [facility] CKD-EPI eGFR Non-Afr. Cameroonian 78 # [facility] ([facility] CKD-EPI ID Date Data Source [id number] 11/13/2019 01:58:00 PM EDT [facility] ([facility] Name Value Range Interpretation Code Description Data Deja rce(s) Supporting Document(s) Leukocytes [#/volume] in Blood by Automated count 6.8 x10E3/uL 3.4-10 .8 [facility] ([facility] Erythrocytes [#/volume] in Blood by Automated count 4.41 x10E6/uL 3.7 7-5.28 [facility] ([facility] Hemoglobin [Mass/volume] in Blood 13.3 g/dL 11.1-15.9 [facility] ([facility] Hematocrit [Volume Fraction] of Blood by Automated count 40.3 % 3 4.0-46.6 [facility] ([facility] Erythrocyte mean corpuscular volume [Entitic volume] by Auto mated count 91 fL 79-97 [facility] ([facility] Erythrocyte mean corpuscular hemoglobin concentration [Mass/volume] by Automated count 33.0 g/dL 31.5-35.7 [facility] ([facility] Manav espinoza[facility] Erythrocyte mean corpuscular hemoglobin [Entitic mass] by Automated count 30.2 pg 26.6-33.0 [facility] ([facility] Kaela mojica[facility] Erythrocyte distribution width [Ratio] by Automated count 13.1 % 11.7-15.4 [facility] ([facility] Neutrophils 56 % [facility] ([facility] Platelets [#/volume] in Blood by Automated count 488 x10E3/uL 150-450 Above high normal [facility] ([facility] ) Eosinophils/100 leukocytes in Blood by Automated count 1 % [facility] ([facility] Monocytes/100 leukocytes in Blood by Automated count 9 % [facility] Lymphs 32 % [facility] ([facility] Basophils/100 leukocytes in Blood by Automated count 1 % [facility] ([facility] Immature cells [#/volume] in Blood Laboratory test result [facility] ([facility] Neutrophils [#/volume] in Blood by Automated count 3.8 x10E3/uL 1.4-7 .0 [facility] ([facility] Monocytes [#/volume] in Blood 0.6 x10E3/uL 0.1-0.9 [facility] ([facility] Eosinophils [#/volume] in Blood by Automated count 0.1 x10E3/uL 0.0-0 .4 [facility] ([facility] Lymphocytes [#/volume] in Blood 2.2 x10E3/uL 0.7-3.1 [facility] ([facility] Immature granulocytes [#/volume] in Blood by Automated count 0.1 x10E3/uL 0.0-0.1 [facility] Immature granulocytes/100 leukocytes in Blood by Automated count 1 % [facility] ([facility] Basophils [#/volume] in Blood by Automated count 0.1 x10E3/uL 0.0-0.2 [facility] ([facility] Nucleated erythrocytes/100 leukocytes [Ratio] in Blood by Automated count Laboratory test result [facility] ([facility] Morphology [Interpretation] in Blood Narrative Laboratory test result [facility] ([facility] ID Date Data Source [id number] 11/13/2019 01:56:00 PM EDT [facility] ([facility] Name Value Range Interpretation Code Description Data Deja rce(s) Supporting Document(s) Ammonia [Moles/volume] in Plasma 41 ug/dL 34-178 [facility] ([facility] Please note reference interval change* * ID Date Data Source [id number] 04/17/2019 02:02:00 PM EST [facility] ([facility] Name Value Range Interpretation Code Description Data Deja rce(s) Supporting Document(s) Blood Urea Nitrogen 9 mg/dL 7-18 Normal (applies to non-nume ivelisse results) [facility] ([facility] Glucose, Fasting 91 mg/dL 70-100 Normal (applies to non-numeric results) [facility] ([facility] Sodium Level 132 meq/L 136-145 Below low normal [facility] ([facility] Glomerular Filtration Rate Laboratory test result Normal (applies to non- numeric results) [facility] ([facility] ) <content>Units are mL/min/1.73 m2</content>
<content></content>
<content>Chronic Kidney Disease Staging per NKF:</content>
<content></content>
<content>Stage I & II GFR >=60 Normal to Mildly Decreased</content>
<content>Stage III GFR 30- 59 Moderately Decreased</content>
<content>Stage IV GFR 15-29 Severely Decreased</content>
<content>Stage V GFR <15 Very Little GFR Left</content>
<content>ESRD GFR <15 on CLINICAL NURSING ASSISTANT</content>
<content></content> Creatinine For GFR 0.75 mg/dL 0.55-1.30 Normal (applies to non -numeric results) [facility] ([facility] Carbon Dioxide Level 27 meq/L 21-32 Normal (applies to non-num eben results) [facility] ([facility] Chloride Level 96 meq/L 98-107 Below low normal MEDE NT ([facility] Anion Gap 9 meq/L 8-16 Normal (applies to non-numeric resul ts) [facility] ([facility] Potassium Serum 4.4 meq/L 3.5-5.1 Normal (applies to non-numeric results) [facility] ([facility] Ast/Sgot 16 U/L 7-37 Normal (applies to non-numeric resul ts) [facility] ([facility] Alt/SGPT 18 U/L 12-78 Normal (applies to non-numeric resul ts) [facility] ([facility] Calcium Level 9.2 mg/dL 8.8-10.2 Normal (applies to non-numeric re sults) [facility] ([facility] Bilirubin,Total 0.4 mg/dL 0.2-1.0 Normal (applies to non-numeric results) [facility] ([facility] Alkaline Phosphatase 91 U/L 45-117 Normal (applies to non-num eben results) [facility] ([facility] Total Protein 7.0 GM/DL 6.4-8.2 Normal (applies to non-numeric re sults) [facility] ([facility] Albumin 3.6 GM/DL 3.2-5.2 Normal (applies to non-numeric resul ts) [facility] ([facility] Albumin/Globulin Ratio 1.06 1.00-1.93 Normal (applies to non-numeric results) [facility] ([facility] Procedure Vital Signs ID Date Data Source UNK Name Value Range Interpretation Code Description Data Source(s) Body surface area Derived from formula 1.51 m2 1.51 m2 [facility] ([facility]) Body weight 50.803 kg 50.803 kg [facility] ([facility]) [place] body weight 115 [lb_av] 115 [lb_av] [facility] ([facility]) Body mass index (BMI) [Ratio] 19.8 kg/m2 19.8 k g/m2 [facility]) Body weight 112.00 [lb_av] 112.00 [lb_av] [facility] ([facility]) Body height 63 [in_i] 63 [in_i] [facility] ([facility]) 5'3" Diastolic blood pressure 60 mm[Hg] 60 mm[Hg] [facility]) Systolic blood pressure 110 mm[Hg] 110 mm[Hg] [facility] [place] body weight 110 [lb_av] 110 [lb_av] [facility] T ([facility] Body weight 110.00 [lb_av] 110.00 [lb_av] [facility] T ([facility] Body height 62 [in_i] 62 [in_i] [facility] 5'2" Respiratory rate 16 /min 16 /min [facility] ( [facility] Heart rate 104 /min 104 /min [facility] ([facility] Body temperature 97.3 [degF] 97.3 [degF] [facility] ([facility] Diastolic blood pressure 70 mm[Hg] 70 mm[Hg] [facility] ([facility] Systolic blood pressure 110 mm[Hg] 110 mm[Hg] M EDENT ([facility] Oxygen saturation in Arterial blood by Pulse oximetry 97 % 97 % [facility] ([facility] Body mass index (BMI) [Ratio] 20.1 kg/m2 20.1 k g/m2 [facility] ([facility] Oxygen saturation in Arterial blood by Pulse oximetry 96 % 96 % [facility] ([facility] Body mass index (BMI) [Ratio] 20.5 kg/m2 20.5 k g/m2 [facility] ([facility] [place] body weight 110 [lb_av] 110 [lb_av] [facility] ([facility] Body weight 112.00 [lb_av] 112.00 [lb_av] [facility] T ([facility] Body height 62 [in_i] 62 [in_i] [facility] ([facility] 5'2" Respiratory rate 14 /min 14 /min [facility] ( [facility] Heart rate 108 /min 108 /min [facility] ([facility] Body temperature 97.6 [degF] 97.6 [degF] [facility] ([facility] Diastolic blood pressure 68 mm[Hg] 68 mm[Hg] [facility] ([facility] Systolic blood pressure 122 mm[Hg] 122 mm[Hg] M EDENT ([facility] Oxygen saturation in Arterial blood by Pulse oximetry 98 % 98 % [facility] ([facility] Body mass index (BMI) [Ratio] 20.8 kg/m2 20.8 k g/m2 [facility] ([facility] [place] body weight 110 [lb_av] 110 [lb_av] [facility] T ([facility] Body weight 114.00 [lb_av] 114.00 [lb_av] [facility] T ([facility] Body height 62 [in_i] 62 [in_i] [facility] ([facility] 5'2" Respiratory rate 14 /min 14 /min [facility] ( [facility] Heart rate 110 /min 110 /min [facility] ([facility] Body temperature 97.1 [degF] 97.1 [degF] [facility] ([facility] Diastolic blood pressure 80 mm[Hg] 80 mm[Hg] [facility] ([facility] Systolic blood pressure 134 mm[Hg] 134 mm[Hg] M EDENT ([facility] Oxygen saturation in Arterial blood by Pulse oximetry 95 % 95 % [facility] ([facility] Body mass index (BMI) [Ratio] 21.0 kg/m2 21.0 k g/m2 [facility] ([facility] [place] body weight 110 [lb_av] 110 [lb_av] [facility] T ([facility] Body weight 115.00 [lb_av] 115.00 [lb_av] [facility] T ([facility] Body height 62 [in_i] 62 [in_i] [facility] ([facility] 5'2" Respiratory rate 18 /min 18 /min [facility] ( [facility] Heart rate 126 /min 126 /min [facility] ([facility] Body temperature 97.1 [degF] 97.1 [degF] HE ([facility] Diastolic blood pressure 76 mm[Hg] 76 mm[Hg] HE ([facility] Systolic blood pressure 124 mm[Hg] 124 mm[Hg] Nhan TOTH ([facility] Oxygen saturation in Arterial blood by Pulse oximetry 99 % 99 % [facility] ([facility] Body mass index (BMI) [Ratio] 21.2 kg/m2 21.2 k g/m2 [facility] ([facility] Body weight 116.00 [lb_av] 116.00 [lb_av] SHANTEN T ([facility] Body height 62 [in_i] 62 [in_i] HE ([facility] 5'2" Respiratory rate 14 /min 14 /min HE ( [facility] Heart rate 96 /min 96 /min HE ([facility] Body temperature 98.0 [degF] 98.0 [degF] HE ([facility] Diastolic blood pressure 66 mm[Hg] 66 mm[Hg] HE ([facility] Systolic blood pressure 118 mm[Hg] 118 mm[Hg] Nhan TOTH ([facility]
--- NOTE | 2020-04-28 13:31 | ROOR ---
Patient Name: Indira Champion Procedure Date: 04/28/2020 12:34 PM Date of : 1955 Age: 64 Room: [facility] Gender: Female Note Status: Finalized Procedure: Upper GI endoscopy Indications: Abdominal pain in the left upper quadrant, Heartburn, Weight loss Providers: Edison Hess MD Referring MD: KLEBER NGUYEN MD Requesting Provider: Medicines: Monitored Anesthesia Care Complications: No immediate complications. Procedure: Pre-Anesthesia Assessment: - Prior to the procedure, a History and Physical was performed, and patient medications and allergies were reviewed. The patient is competent. The risks and benefits of the procedure and the sedation options and risks were discussed with the patient. All questions were answered and informed consent was obtained. Patient identification and proposed procedure were verified by the physician, the nurse and the gasket maker in the procedure room. Mental Status Examination: alert and oriented. Airway Examination: normal oropharyngeal airway and neck mobility. Prophylactic Antibiotics: The patient does not require prophylactic antibiotics. Prior Anticoagulants: The patient has taken no previous anticoagulant or antiplatelet agents. ASA Grade Assessment: II - A patient with mild systemic disease. After reviewing the risks and benefits, the patient was deemed in satisfactory condition to undergo the procedure. The anesthesia plan was to use monitored anesthesia care (MAC). Immediately prior to administration of medications, the patient was re-assessed for adequacy to receive sedatives. The heart rate, respiratory rate, oxygen saturations, blood pressure, adequacy of pulmonary ventilation, and response to care were monitored throughout the procedure. The physical status of the patient was re-assessed after the procedure. The Endoscope was introduced through the mouth, and advanced to the second part of duodenum. The upper GI endoscopy was accomplished without difficulty. The patient tolerated the procedure well. Findings: The examined esophagus was normal. A 5 cm hiatal hernia was present. The first portion of the duodenum and second portion of the duodenum were normal. Biopsies were taken with a cold forceps for histology. Estimated blood loss was minimal. The entire examined stomach was normal. Impression: - Normal esophagus. - 5 cm hiatal hernia. - Normal first portion of the duodenum and second portion of the duodenum. Biopsied. - Normal stomach. Recommendation: - Discharge patient to home. - Resume previous diet. - Continue present medications. - Await pathology results. - Return to endoscopist in 2 weeks. Procedure Code(s): --- Professional --- 00498, Esophagogastroduodenoscopy, flexible, transoral; with biopsy, single or multiple Diagnosis Code(s): --- Professional --- K44.9, Diaphragmatic hernia without obstruction or gangrene R10.12, Left upper quadrant pain R12, Heartburn R63.4, Abnormal weight loss CPT copyright 2019 [employer]. All rights reserved. The codes documented in this report are preliminary and upon general office dispatcher review may be revised to meet current compliance requirements. Edison Hess MD Edison Hess MD 04/28/2020 1:31:36 PM Electronically signed by Edison Hess MD Number of Addenda: 0 Note Initiated On: 04/28/2020 12:34 PM Estimated Blood Loss: Estimated blood loss was minimal.
--- NOTE | 2020-04-28 13:45 | ROOR ---
Patient Name: Indira Champion Procedure Date: 04/28/2020 12:35 PM Date of : 1955 Age: 64 Room: [facility] Gender: Female Note Status: Finalized Procedure: Colonoscopy Indications: High risk colon cancer surveillance: Personal history of colon cancer, Has chronic diarrhea and weight loss. Patient had left hemicolectomy for cancer 10 yrs ago Providers: Edison Hess MD Referring MD: KLEBER NGUYEN MD Requesting Provider: Medicines: Monitored Anesthesia Care Complications: No immediate complications. Procedure: Pre-Anesthesia Assessment: - Prior to the procedure, a History and Physical was performed, and patient medications and allergies were reviewed. The patient is competent. The risks and benefits of the procedure and the sedation options and risks were discussed with the patient. All questions were answered and informed consent was obtained. Patient identification and proposed procedure were verified by the physician, the nurse and the anesthesiologist in the procedure room. Mental Status Examination: alert and oriented. Airway Examination: normal oropharyngeal airway and neck mobility. Prophylactic Antibiotics: The patient does not require prophylactic antibiotics. Prior Anticoagulants: The patient has taken no previous anticoagulant or antiplatelet agents. ASA Grade Assessment: II - A patient with mild systemic disease. After reviewing the risks and benefits, the patient was deemed in satisfactory condition to undergo the procedure. The anesthesia plan was to use monitored anesthesia care (MAC). Immediately prior to administration of medications, the patient was re-assessed for adequacy to receive sedatives. The heart rate, respiratory rate, oxygen saturations, blood pressure, adequacy of pulmonary ventilation, and response to care were monitored throughout the procedure. The physical status of the patient was re-assessed after the procedure. The Colonoscope was introduced through the anus and advanced to the cecum, identified by appendiceal orifice and ileocecal valve. The colonoscopy was performed without difficulty. The patient tolerated the procedure well. The quality of the bowel preparation was good. Findings: The perianal and digital rectal examinations were normal. There was evidence of a prior end-to-end colo-colonic anastomosis in the proximal descending colon. This was patent and was characterized by healthy appearing mucosa. The anastomosis was traversed. A 3 mm polyp was found in the ascending colon. The polyp was sessile. The polyp was removed with a cold snare. Resection was complete, but the polyp tissue was only partially retrieved. Estimated blood loss: none. Normal mucosa was found in the entire colon. Biopsies for histology were taken with a cold forceps from the entire colon for evaluation of microscopic colitis. Impression: - Patent end-to-end colo-colonic anastomosis, characterized by healthy appearing mucosa. - One 3 mm polyp in the ascending colon, removed with a cold snare. Complete resection. Partial retrieval. - Normal mucosa in the entire examined colon. Biopsied. Recommendation: - Discharge patient to home. - Resume previous diet. - Continue present medications. - Await pathology results. - Return to endoscopist in 2 weeks. Procedure Code(s): --- Professional --- 09844, Colonoscopy, flexible; with removal of tumor(s), polyp(s), or other lesion(s) by snare technique 98305, 59, Colonoscopy, flexible; with biopsy, single or multiple Diagnosis Code(s): --- Professional --- Z85.038, Personal history of other malignant neoplasm of large intestine Z98.0, Intestinal bypass and anastomosis status K63.5, Polyp of colon CPT copyright 2019 [employer] [employer]. All rights reserved. The codes documented in this report are preliminary and upon hand ii cutter review may be revised to meet current compliance requirements. Edison Hess MD Edison Hess MD 04/28/2020 1:44:32 PM Electronically signed by Edison Hess MD Number of Addenda: 0 Note Initiated On: 04/28/2020 12:35 PM Estimated Blood Loss: Estimated blood loss was minimal.
[2020-04-28 14:02] VITALS: BP 139/74
[2020-04-28] MEDS ORDERED: SIMETHICONE 40MG/0.6ML DROPS 30ML As Ordered ONE (14:37)
== END 2020-04-28 14:05 | disposition home or self-care (01) ==
LOC: M OPP 11:16
PROVIDERS: ATTEND Surgery
DX: K52.9 Noninfective gastroenteritis and colitis, unspecified (principal); R63.4 Abnormal weight loss; Z85.038 Personal history of other malignant neoplasm of large intestine; R10.12 Left upper quadrant pain; R12 Heartburn; R11.0 Nausea; D12.2 Benign neoplasm of ascending colon; Z98.0 Intestinal bypass and anastomosis status; D13.39 Benign neoplasm of other parts of small intestine; K44.9 Diaphragmatic hernia without obstruction or gangrene; M19.90 Unspecified osteoarthritis, unspecified site; F41.9 Anxiety disorder, unspecified; F17.210 Nicotine dependence, cigarettes, uncomplicated; F12.20 Cannabis dependence, uncomplicated; Z92.21 Personal history of antineoplastic chemotherapy; Z79.899 Other long term (current) drug therapy

== ENCOUNTER → 2021-03-13 | Outpatient (CLI) | payer BC ==
[~2021-03-13] MED LIST changes: -FOLI400T PO; +FOLI400T13 PO; -LIDOCAINE 2% 100MG/5ML SDV (FOR ANES.) As Ordered ONE; -MAG400TA PO; +MAGN400T35 PO; -NS 1,000 ML IV ONE; -propofoL 200 MG/20 ML VIAL As Ordered ONE
[2021-03-13 16:47] LABS: BLOOD UREA NITROGEN 15 MG/DL (7-18); CALCIUM LEVEL 8.9 MG/DL (8.8-10.2); CARBON DIOXIDE LEVEL 26 MEQ/L (21-32); CHLORIDE LEVEL 104 MEQ/L (98-107); CREATININE FOR GFR 0.85 MG/DL (0.55-1.30); GLOMERULAR FILTRATION RATE > 60.0 (>45); GLUCOSE, FASTING 92 MG/DL (70-100); POTASSIUM SERUM 4.5 MEQ/L (3.5-5.1); SODIUM LEVEL 137 MEQ/L (136-145)
[2021-03-13 16:51] LABS: TOTAL 25(OH) VITAMIN D 21.7 NG/ML (30.0-100.0)
== END ==
LOC: M WUC 12:06
PROVIDERS: ATTEND Internal Medicine Endocrinology, Diabetes & Metabolism
DX: M81.0 Age-related osteoporosis without current pathological fracture (principal)

== ENCOUNTER → 2021-10-09 | Outpatient (CLI) | payer BC | LOC: M WHC 09:01 | PROVIDERS: ATTEND Internal Medicine | DX: Z12.31 Encounter for screening mammogram for malignant neoplasm of breast (principal) ==

== ENCOUNTER → 2021-10-31 | Outpatient (CLI) | payer BC | LOC: M WUC 13:48 | PROVIDERS: ATTEND Physician Assistant | DX: M25.512 Pain in left shoulder (principal); W18.30XA Fall on same level, unspecified, initial encounter ==

== ENCOUNTER 2021-12-21 21:14 | Emergency (ER) | payer BC ==
[~2021-12-21] VITALS: Ht 157.5 cm; Wt 44.1 kg
[2021-12-21 21:15] VITALS: BP 130/90
== END 2021-12-22 03:00 | disposition left against medical advice (07) ==
LOC: M ED 21:14
DX: Z53.21 Procedure and treatment not carried out due to patient leaving prior to being seen by health care provider (principal)

== ENCOUNTER → 2022-01-10 | Outpatient (CLI) | payer BC ==
[~2022-01-10] MED LIST changes: +ISOVUE-370 76% 100ML VIAL As Ordered ONE
== END ==
LOC: M RAD 08:05
PROVIDERS: ATTEND Internal Medicine
DX: R91.8 Other nonspecific abnormal finding of lung field (principal); R63.4 Abnormal weight loss; Z72.0 Tobacco use
CPT/HCPCS: 71260; Q9967

== ENCOUNTER → 2022-02-08 | Outpatient (CLI) | payer BC ==
[~2022-02-08] MED LIST changes: -ISOVUE-370 76% 100ML VIAL As Ordered ONE
== END ==
LOC: M RAD 15:04
PROVIDERS: ATTEND Internal Medicine Critical Care Medicine
DX: R91.8 Other nonspecific abnormal finding of lung field (principal)

== ENCOUNTER → 2022-02-19 | Outpatient (CLI) | payer MEDICARE, BC ==
[~2022-02-19] MED LIST changes: +DIPH2.5T15 PO; +DULO1CAP6 PO; +HYDR-3363 PO; +HYDR50TA70; +MV-M1TAB13 PO; +ONDA-83 PO; +TIZA2CAP; +TUME1CAP PO
== END ==
LOC: M CARPUL 07:44
PROVIDERS: ATTEND Internal Medicine Critical Care Medicine
DX: I42.9 Cardiomyopathy, unspecified (principal); R63.4 Abnormal weight loss; I51.7 Cardiomegaly

== ENCOUNTER → 2022-02-26 | Outpatient (CLI) | payer MEDICARE, BC ==
[~2022-02-26] MED LIST changes: -TUME1CAP PO
== END ==
LOC: M PLARAD 12:56
PROVIDERS: ATTEND Internal Medicine Critical Care Medicine
DX: R91.8 Other nonspecific abnormal finding of lung field (principal)
CPT/HCPCS: 78815; A9552

== ENCOUNTER → 2022-02-27 | Outpatient (CLI) | payer MEDICARE, BC ==
[~2022-02-27] MED LIST changes: +TUME1CAP PO
[2022-02-27 13:52] LABS: PLATELET COUNT, AUTOMATED 588 10^3/uL (150-450)
[2022-02-27 14:10] LABS: INR 0.92; PROTHROMBIN TIME 12.6 SECONDS (12.5-14.5)
[2022-02-27 14:11] LABS: PARTIAL THROMBOPLASTIN TIME 28.3 SECONDS (24.8-34.2)
== END ==
LOC: M PLALAB 11:39
PROVIDERS: ATTEND Internal Medicine Critical Care Medicine
DX: R91.8 Other nonspecific abnormal finding of lung field (principal)

== ENCOUNTER → 2022-02-27 | Outpatient (CLI) | payer MEDICARE, BC | LOC: M LABSMTC 11:14 | PROVIDERS: ATTEND Anesthesiology | DX: Z01.812 Encounter for preprocedural laboratory examination (principal); Z20.822 Contact with and (suspected) exposure to COVID-19 ==

== ENCOUNTER 2022-02-28 06:25 | Day surgery (SDC) | payer MEDICARE, BC ==
[~2022-02-28] VITALS: Ht 157.5 cm; Wt 43.5 kg
[~2022-02-28 06:25] MED LIST changes: -DIPH2.5T15 PO; -HYDR-3363 PO; -MV-M1TAB13 PO; -ONDA-83 PO; -TUME1CAP PO
[2022-02-28] MEDS ORDERED: SEVOFLURANE INHAL SOLN 250 ML BTL As Ordered ONE (06:49)
[2022-02-28] MEDS ORDERED: LIDOCAINE 2% 100MG/5ML SDV (FOR ANES.) As Ordered ONE (07:01)
[2022-02-28] MEDS ORDERED: propofoL 200 MG/20 ML VIAL As Ordered ONE (07:01)
[2022-02-28] MEDS ORDERED: ROCURONIUM BROMIDE 50MG/5ML VIAL As Ordered ONE (07:02)
[2022-02-28] MEDS ORDERED: MIDAZOLAM INJ 2MG/2ML VIAL As Ordered ONE (07:02)
[2022-02-28] MEDS ORDERED: fentaNYL 100 MCG/2 ML INJECTION As Ordered ONE (07:02)
[2022-02-28] MEDS ORDERED: ONDANSETRON 4MG 2ML VIAL As Ordered ONE (07:02)
[2022-02-28] MEDS ORDERED: CETACAINE SPRAY 5GM As Ordered ONE (07:16)
[2022-02-28] MEDS ORDERED: LIDOCAINE PRES-FREE 2% 10ML AMP As Ordered ONE (07:17)
[2022-02-28] MEDS ORDERED: EPINEPHrine 1MG/10ML SYRINGE 1.5IN As Ordered ONE (07:17)
[2022-02-28] MEDS ORDERED: THROMBIN 5,000 UNITS VIAL As Ordered ONE (07:17)
[2022-02-28] MEDS ORDERED: ALBUTEROL SULFATE 2.5MG/0.5ML INH NEB SOLN As Ordered ONE (07:19)
[2022-02-28] MEDS ORDERED: ALBUTEROL SULFATE 2.5MG/0.5ML INH NEB SOLN INH ONE ×2 (07:25→09:40)
[2022-02-28] MEDS ORDERED: LIDOCAINE PRES-FREE 2% 10ML AMP INH ONE (07:35)
[2022-02-28] MEDS ORDERED: ALBUTEROL SULFATE 2.5MG/0.5ML INH NEB SOLN INH STA (07:53)
[2022-02-28] MEDS ORDERED: LR 1,000 ML IV SCH ×2 (07:55→09:40)
[2022-02-28] MEDS ORDERED: PHENYLephrine 500MCG 5ML (100MCG/ML) SYRINGE As Ordered ONE (07:59)
[2022-02-28] MEDS ORDERED: ACETAMINOPHEN 1000MG 100ML IV BAG As Ordered ONE (08:22)
[2022-02-28] MEDS ORDERED: ONDANSETRON 4MG 2ML VIAL IV PRN (09:40)
[2022-02-28] MEDS ORDERED: METOCLOPRAMIDE INJ 10MG/2ML VIAL IV PRN (09:40)
[2022-02-28] MEDS ORDERED: oxyCODONE 5MG TAB PO PRN (09:40)
[2022-02-28 14:50] VITALS: BP 145/66
[2022-03-21] MEDS ORDERED: ONDA-83 PO (15:56)
[2022-03-21] MEDS ORDERED: DIPH2.5T15 PO (15:56)
[2022-03-21] MEDS ORDERED: MV-M1TAB13 PO (15:56)
[2022-03-21] MEDS ORDERED: HYDR-3363 PO (15:56)
[2022-04-17] MEDS ORDERED: TUME1CAP PO (13:16)
== END 2022-02-28 14:04 | disposition home or self-care (01) ==
LOC: M SDC 06:25
PROVIDERS: ATTEND Internal Medicine Critical Care Medicine
DX: D38.1 Neoplasm of uncertain behavior of trachea, bronchus and lung (principal); F17.210 Nicotine dependence, cigarettes, uncomplicated; F12.10 Cannabis abuse, uncomplicated; Z92.21 Personal history of antineoplastic chemotherapy; Z79.51 Long term (current) use of inhaled steroids; J44.9 Chronic obstructive pulmonary disease, unspecified; Z79.899 Other long term (current) drug therapy; K58.8 Other irritable bowel syndrome; F41.9 Anxiety disorder, unspecified; F32.A Depression, unspecified; Z85.09 Personal history of malignant neoplasm of other digestive organs
CPT/HCPCS: 31622; 31654; 71045; 72170; 76000; 87070; 87102; 87116; 87186; 87205; 87206; 88173; 88305; J1100; J2370; J2405; S2900

== ENCOUNTER → 2022-03-19 | Outpatient (CLI) | payer BC ==
[~2022-03-19] MED LIST changes: +DULO1CAP6; -DULO1CAP6 PO
== END ==
LOC: M SOG 08:29
PROVIDERS: ATTEND Orthopaedic Surgery Adult Reconstructive Orthopaedic Surgery
DX: S32.511D Fracture of superior rim of right pubis, subsequent encounter for fracture with routine healing (principal)

== ENCOUNTER → 2022-03-27 | Outpatient (CLI) | payer MEDICARE, BC ==
[~2022-03-27] MED LIST changes: +DIPH2.5T15 PO; -DULO1CAP6; +DULO1CAP6 PO; +HYDR-3363 PO; +MV-M1TAB13 PO; +ONDA-83 PO
== END ==
LOC: M ONCR 13:20
PROVIDERS: ATTEND General Practice
DX: C34.11 Malignant neoplasm of upper lobe, right bronchus or lung (principal); C18.7 Malignant neoplasm of sigmoid colon; F17.210 Nicotine dependence, cigarettes, uncomplicated; F32.A Depression, unspecified; F41.9 Anxiety disorder, unspecified; Z79.51 Long term (current) use of inhaled steroids; Z79.899 Other long term (current) drug therapy; Z80.0 Family history of malignant neoplasm of digestive organs; Z92.21 Personal history of antineoplastic chemotherapy

== ENCOUNTER 2022-04-05 14:56 | Outpatient (RCR) | payer MEDICARE, BC ==
[2022-04-17] MEDS ORDERED: TUME1CAP PO (13:16)
== END 2022-04-14 ==
LOC: M ONCR 14:56
PROVIDERS: ATTEND General Practice
DX: C34.11 Malignant neoplasm of upper lobe, right bronchus or lung (principal)

== ENCOUNTER 2022-04-27 14:01 | Outpatient (RCR) | payer MEDICARE, BC ==
[~2022-04-27 14:01] MED LIST changes: +TUME1CAP PO
== END 2022-05-15 ==
LOC: M ONCR 14:01
PROVIDERS: ATTEND General Practice
DX: C34.11 Malignant neoplasm of upper lobe, right bronchus or lung (principal)

== ENCOUNTER → 2022-07-26 | Outpatient (CLI) | payer BC, MEDICARE ==
[~2022-07-26] MED LIST changes: +ISOVUE-370 76% 100ML VIAL As Ordered ONE
== END ==
LOC: M RAD 10:26
PROVIDERS: ATTEND General Practice
DX: C34.11 Malignant neoplasm of upper lobe, right bronchus or lung (principal)
CPT/HCPCS: 71260; G0463; Q9967

== ENCOUNTER → 2022-07-26 | Outpatient (CLI) | payer MEDICARE, BC ==
[~2022-07-26] MED LIST changes: -ISOVUE-370 76% 100ML VIAL As Ordered ONE
== END ==
LOC: M ONCR 13:09
PROVIDERS: ATTEND General Practice
DX: C34.11 Malignant neoplasm of upper lobe, right bronchus or lung (principal); C78.5 Secondary malignant neoplasm of large intestine and rectum; F17.210 Nicotine dependence, cigarettes, uncomplicated; Z79.899 Other long term (current) drug therapy; Z90.49 Acquired absence of other specified parts of digestive tract; Z92.21 Personal history of antineoplastic chemotherapy; Z92.3 Personal history of irradiation

== ENCOUNTER → 2022-10-23 | Outpatient (CLI) | payer MEDICARE, BC ==
[~2022-10-23] MED LIST changes: +ISOVUE-300 61% 100ML VIAL ONE
== END ==
LOC: M PLAIMG 13:59
PROVIDERS: ATTEND Specialist
DX: C34.90 Malignant neoplasm of unspecified part of unspecified bronchus or lung (principal)
CPT/HCPCS: 71260; Q9967

== ENCOUNTER → 2023-03-27 | Outpatient (CLI) | payer MEDICARE, BC ==
[~2023-03-27] MED LIST changes: -AMIT25TA17 PO; +AMIT25TA19 PO; -ISOVUE-300 61% 100ML VIAL ONE
[2023-03-27 19:05] LABS: HEMATOCRIT 38.8 % (36.0-47.0); HEMOGLOBIN 13.1 g/dl (12.0-15.5); MEAN CORPUSCULAR HEMOGLOBIN 33.9 pg (27.0-33.0); MEAN CORPUSCULAR HGB CONC 33.8 g/dl (32.0-36.5); MEAN CORPUSCULAR VOLUME 100.3 fl (80.0-96.0); PLATELET COUNT, AUTOMATED 334 10^3/uL (150-450); RED BLOOD COUNT 3.87 10^6/uL (4.00-5.40); WHITE BLOOD COUNT 7.4 10^3/uL (4.0-10.0)
[2023-03-27 19:34] LABS: ALBUMIN 3.9 G/DL (3.2-5.2); ALKALINE PHOSPHATASE 100 U/L (46-116); ALT/SGPT 20 U/L (7.0-40); AST/SGOT 25 U/L (<34); BILIRUBIN,TOTAL 0.9 MG/DL (0.3-1.2); BLOOD UREA NITROGEN 11 MG/DL (9-23); CALCIUM LEVEL 9.8 MG/DL (8.3-10.6); CARBON DIOXIDE LEVEL 19 MMOL/L (20-31); CHLORIDE LEVEL 96 MMOL/L (98-107); CREATININE FOR GFR 0.55 MG/DL (0.55-1.30); GLOMERULAR FILTRATION RATE > 60.0 (>45); GLUCOSE, FASTING 137 MG/DL (74-106); POTASSIUM SERUM 4.1 MMOL/L (3.5-5.1); SODIUM LEVEL 131 MMOL/L (136-145); TOTAL PROTEIN 7.2 G/DL (5.7-8.2)
== END ==
LOC: M WUC 15:30
PROVIDERS: ATTEND Internal Medicine
DX: R00.0 Tachycardia, unspecified (principal); R63.4 Abnormal weight loss